=== PATIENT | male | born 1945 | race Caucasian/White ===

== ENCOUNTER → 2018-09-06 07:07 | Outpatient (CLI) | payer MEDICARE, OTHER, SELFPAY ==
[2018-09-06 07:42] LABS: Add Manual Diff / Slide Review NO; Basophils Absolute Auto 100 /uL (0-100); Basophils Percent Auto 0.9 % (0-2); Eosinophils Absolute Auto 700 /uL (0-450); Eosinophils Percent Auto 5.4 % (2-4); Hematocrit 37.9 % (41-53); Hemoglobin 12.8 g/dL (13.5-17.5); Lymphocytes Absolute Auto 1400 /uL (1100-4500); Lymphocytes Percent Auto 11.3 % (25-40); Mean Corpuscular HGB Conc 33.8 % (30-36); Mean Corpuscular Hemoglobin 31.1 PG (26-34); Mean Corpuscular Volume 92.1 fL (80-100); Monocytes Absolute Auto 1100 /uL (0-900); Monocytes Percent Auto 9.2 % (3-14); Neutrophils Absolute Auto 9100 /uL (1500-7000); Neutrophils Percent Auto 73.2 % (50-75); Platelet Count 277 X10^3/uL (150-400); Red Blood Cell Count 4.12 X10^6/uL (4.5-5.9); Red Cell Distribution Width 13.3 % (11.6-14.8); White Blood Cell Count 12.4 X10^3/uL (4.5-11.0)
[2018-09-06 07:55] LABS: BUN Creatinine Ratio 21.4 (6-22); Blood Urea Nitrogen 15 mg/dL (9-20); Calcium 8.8 mg/dL (8.4-10.2); Carbon Dioxide 30 mmol/L (22-32); Chloride 100 mmol/L (98-107); Cholesterol 104 mg/dL (140-199); Estimated Glomerular Filt Rate > 60.0 mL/min (>60); Glucose 126 mg/dL (80-110); HDL Cholesterol 31 mg/dL (40-60); HEMOLYSIS < 15 (0-50); LDL Cholesterol Calculated 64 mg/dL (<100); Potassium 4.2 mmol/L (3.4-5.1); Sodium 138 mmol/L (137-145); Triglycerides 45 mg/dL (35-150)
== END ==
PROVIDERS: Visit Provider Internal Medicine Cardiovascular Disease
DX: I25.10 Atherosclerotic heart disease of native coronary artery without angina pectoris (principal); I48.2 Chronic atrial fibrillation; Z95.5 Presence of coronary angioplasty implant and graft; E78.5 Hyperlipidemia, unspecified
CPT/HCPCS: 36415; 80048; 80061; 85025

== ENCOUNTER → 2019-09-11 08:04 | Outpatient (CLI) | payer MEDICARE, OTHER, SELFPAY ==
[2019-09-11 09:33] LABS: Add Manual Diff / Slide Review NO; Basophils Absolute Auto 100 /uL (0-100); Basophils Percent Auto 1.1 % (0-2); Eosinophils Absolute Auto 600 /uL (0-450); Eosinophils Percent Auto 6.9 % (2-4); Hematocrit 40.6 % (41-53); Hemoglobin 13.4 g/dL (13.5-17.5); Lymphocytes Absolute Auto 1700 /uL (1100-4500); Lymphocytes Percent Auto 20.4 % (25-40); Mean Corpuscular HGB Conc 33.1 % (30-36); Mean Corpuscular Hemoglobin 30.6 PG (26-34); Mean Corpuscular Volume 92.4 fL (80-100); Monocytes Absolute Auto 700 /uL (0-900); Neutrophils Absolute Auto 5200 /uL (1500-7000); Neutrophils Percent Auto 63.6 % (50-75); Platelet Count 189 X10^3/uL (150-400); Red Blood Cell Count 4.39 X10^6/uL (4.5-5.9); Red Cell Distribution Width 14.5 % (11.6-14.8); White Blood Cell Count 8.2 X10^3/uL (4.5-11.0)
[2019-09-11 10:04] LABS: BUN Creatinine Ratio 14.3 (6-22); Blood Urea Nitrogen 11 mg/dL (9-20); Calcium 9.3 mg/dL (8.4-10.2); Carbon Dioxide 27 mmol/L (22-32); Chloride 102 mmol/L (98-107); Cholesterol 115 mg/dL (140-199); Estimated Glomerular Filt Rate > 60.0 mL/min (>60); Glucose 101 mg/dL (80-110); HDL Cholesterol 50 mg/dL (40-60); HEMOLYSIS < 15 (0-50); LDL Cholesterol Calculated 52 mg/dL (<100); Potassium 4.3 mmol/L (3.4-5.1); Sodium 139 mmol/L (137-145); Triglycerides 65 mg/dL (35-150)
== END ==
PROVIDERS: Referring Provider Internal Medicine Cardiovascular Disease; Visit Provider Internal Medicine Cardiovascular Disease
DX: E78.5 Hyperlipidemia, unspecified (principal); I25.10 Atherosclerotic heart disease of native coronary artery without angina pectoris
CPT/HCPCS: 36415; 80048; 80061; 85025

== ENCOUNTER 2020-07-06 14:44 | Inpatient (IN) | payer MEDICARE, OTHER, SELFPAY ==
[2020-07-06] VITALS (8 sets, daily range): BP systolic 91–112; BP diastolic 56–75; PULSE 84–107; RESP 12–22; TEMP 36.2–37; O2SAT 97–99; BMI 18.8
--- NOTE | 2020-07-06 14:53 | ED.GENADULT ---
HPI - General Adult General Chief complaint: Altered Mental Status Stated complaint: failure to thrive Time Seen by Provider: 07/06/20 14:46 Source: patient Mode of arrival: EMS Limitations: no limitations History of Present Illness HPI narrative: Patient is a 75-year-old male. On anti coagulation for atrial fibrillation. Was brought in by EMS after they were called by the patient's brother home with he lives for evaluation of several days of confusion and weakness and inability to take care of himself. It also appears that for the past several days if not longer has had diarrhea. Here in the emergency department patient states that he was brought here ?for evaluation ?he denies any chest pain or shortness of breath or abdominal pain. He does admit that he has had some memory issues over the past couple days. Denies any falls. No sick contacts. He does think that he is taking all of his medications that he is prescribed. Related Data Home Medications Medication Instructions Recorded Confirmed [MEDICAL MARIJUANA] #0 03/14/12 ascorbic acid (vitamin C) 500 mg PO QDAY #0 04/12/16 cholecalciferol (vitamin D3) 1,000 unit PO QDAY #0 04/12/16 [Vitamin D3] multivitamin [Multiple Vitamins] 1 tab PO QDAY #0 04/12/16 [CoQ10] 10 mg #0 04/20/16 atorvastatin 40 mg PO HS #0 08/18/16 prasugrel [Effient] #0 08/18/16 [probiotic] #0 12/08/16 aspirin 81 mg PO QDAY #0 12/08/16 brimonidine [Alphagan P] 1 drp OPHTH BID #0 12/08/16 timolol maleate 1 drp OPHTH BID #0 12/08/16 Previous Rx's Medication Instructions Recorded lisinopril 2.5 mg PO QDAY #90 tab 04/20/16 metoprolol succinate 0 PO BID #270 tab 04/20/16 prasugrel [Effient] 10 mg PO QDAY #180 tab 12/08/16 betamethasone dipropionate 0.05 % 1 applictn TOPICAL BID #45 gram 12/13/18 topical ointment Allergies Allergy/AdvReac Type Severity Reaction Status Date / Time No Known Drug Allergies Allergy Verified 07/06/20 16:10 Review of Systems Constitutional Constitutional: Denies fever(s) and Denies headache(s) Eyes Eyes: Denies change in vision ENT Ears, Nose, Mouth, and Throat: Denies vertigo, Denies dizziness, Denies headache(s) and Denies sore throat Cardiovascular Cardiovascular: Denies chest pain and Denies dyspnea Respiratory Respiratory: Denies dyspnea Gastrointestinal Gastrointestinal: Denies abdominal pain, Denies nausea and Denies vomiting Genitourinary Genitourinary: Denies dysuria Genitourinary: Denies dysuria Musculoskeletal Musculoskeletal: Denies arthralgias and Denies myalgias Integumentary/Breasts Skin/Breast: Denies rash Neurologic Neurologic: Reports confusion, Denies vertigo, Denies dizziness and Denies headache(s) Psychiatric Psychiatric: Reports confusion Hematologic/Lymphatic On Anticoagulants: Yes Allergic/Immunologic Allergic/Immunologic: Denies urticaria Patient History Medical History Atrial fibrillation Social History lives independently: Yes Exam Initial Vital Signs Initial Vital Signs: Vital Signs Temperature 97.1 F L 07/06/20 15:05 Pulse Rate 95 H 07/06/20 15:05 Respiratory Rate 22 07/06/20 15:05 Blood Pressure 112/75 07/06/20 15:05 Pulse Oximetry 97 07/06/20 15:05 Const General: cooperative, healthy appearing and comfortable [facility] Head: normal to inspection and normocephalic Resp Effort & Inspection: normal respiratory effort Auscultation: clear to auscultation bilaterally Cardio Rate: regular rate Rhythm: abnormal rhythm GI Inspection: non-distended Palpation: soft Skin Lesions: no lesions Rashes: no rashes Neuro General: patient alert, patient awake and oriented (Month and person) Cranial Nerves: CN's II-XI intact bilaterally Cognition: abnormal cognition Speech: speech normal Motor: muscle tone normal throughout Sensory Exam: no sensory deficits noted Extrem General: capillary refill normal Psych Appearance: grossly normal and well kempt Scores GCS [place] coma scale eye opening: Spontaneous [place] coma scale verbal response: Confused [place] coma scale motor response: Obey commands [place] coma scale total score: 14 Course Orders Ordered: ED Orders 07/06/20 14:55 CT head/brain wo con Stat Urinalysis and Microscopic Stat 07/06/20 15:25 Acetaminophen Stat Ammonia (NH3) Stat Complete Blood Count AUTO DIFF Stat Comprehensive Metabolic Panel Stat Ethanol (ETOH) Stat Lipase Stat Partial Thromboplastin Time Stat Procalcitonin Stat Prothrombin Time INR Stat Salicylate Stat Troponin & CK Cardiac Panel Stat 07/06/20 15:35 EKG-12 Lead Stat 07/06/20 17:28 COVID19 Stat Sodium Chloride (Normal Saline 0.9%) 1,000 mls @ 125 mls/hr IV CONT ELIAZAR Last Admin: 07/06/20 16:09 Dose: 125 mls/hr Documented by: AIRAMONER Potassium Chloride 20 meq/ (Sodium Chloride) 260 mls @ 130 mls/hr IV NOW ONE Stop: 07/06/20 18:31 Last Admin: 07/06/20 18:17 Dose: 130 mls/hr Documented by: AIRAMONER Cosigned by: JAMIE Discontinued Medications Potassium Chloride (Potassium Chloride 20 Meq/15 Ml Udc) 40 meq PO NOW ONE Stop: 07/06/20 16:33 Last Admin: 07/06/20 17:02 Dose: 40 meq Documented by: AIRAMONER Vital Signs Vital signs: Vital Signs - 8 hr 07/06/20 15:05 07/06/20 16:14 07/06/20 16:30 Temperature 97.1 F L Pulse Rate 95 H 89 88 Respiratory Rate 22 16 12 Blood Pressure 112/75 92/66 Pulse Oximetry 97 98 98 Medical Decision Making Medical Records Medical records reviewed: Yes I reviewed the patient's medical records. Lab Data Lab results reviewed: Yes I reviewed the patient's lab results. Result diagrams: 07/06/20 15:25 07/06/20 15:25 Labs: Lab Results 07/06/20 07/06/20 07/06/20 Range/Units 15:25 15:25 15:25 WBC 7.3 (4.5-11.0) X10^3/uL RBC 2.98 L (4.5-5.9) X10^6/uL Hgb 8.4 L (13.5-17.5) g/dL Hct 25.7 L (41-53) % MCV 86.2 (80-100) fL MCH 28.1 (26-34) PG MCHC 32.6 (30-36) % RDW 19.3 H (11.6-14.8) % Plt Count 153 (150-400) X10^3/uL Neut % (Auto) 66.0 (50-75) % Lymph % (Auto) 24.6 L (25-40) % Sampson % (Auto) 7.9 (3-14) % Eos % (Auto) 0.7 L (2-4) % Baso % (Auto) 0.8 (0-2) % Neut # (Auto) 4800 (8120-7028) /uL Lymph # (Auto) 1800 (8083-7133) /uL Sampson # (Auto) 600 (0-900) /uL Eos # (Auto) 0 (0-450) /uL Baso # (Auto) 100 (0-100) /uL PT 22.6 H (10.1-12.7) SECONDS INR 2.0 H (0.9-1.3) APTT 29 (26.4-36.2) SECONDS Sodium 135 L (137-145) mmol/L Potassium 2.5 L* (3.4-5.1) mmol/L Chloride 96 L (98-107) mmol/L Carbon Dioxide 38 H (22-32) mmol/L BUN 14 (9-20) mg/dL Creatinine 0.62 L (0.66-1.25) mg/dL Estimated GFR > 60.0 (>60) mL/min BUN/Creatinine Ratio 22.6 H (6-22) Glucose 104 (80-110) mg/dL Calcium 7.5 L (8.4-10.2) mg/dL Total Bilirubin 0.5 (0.2-1.3) mg/dL AST 39 (17-59) IU/L ALT 8 (<50) IU/L Alkaline Phosphatase 1507 H (38-126) U/L Ammonia (9-30) umol/L Total Creatine Kinase (55-170) U/L CK-MB (CK-2) CK-MB (CK-2) Rel Index Troponin I (0.01-0.034) ng/mL Total Protein 6.0 L (6.3-8.2) g/dL Albumin 3.0 L (3.5-5.0) g/dL Globulin 3.0 (1.7-4.1) g/dL Albumin/Globulin Ratio 1.0 (1.0-2.8) Lipase (23-300) U/L Procalcitonin (<0.5) ng/mL Salicylates (<20) mg/dL Acetaminophen (10-30) ug/mL Ethyl Alcohol < 10 ( - 10) mg/dL 07/06/20 07/06/20 07/06/20 Range/Units 15:25 15:25 15:25 WBC (4.5-11.0) X10^3/uL RBC (4.5-5.9) X10^6/uL Hgb (13.5-17.5) g/dL Hct (41-53) % MCV (80-100) fL MCH (26-34) PG MCHC (30-36) % RDW (11.6-14.8) % Plt Count (150-400) X10^3/uL Neut % (Auto) (50-75) % Lymph % (Auto) (25-40) % Sampson % (Auto) (3-14) % Eos % (Auto) (2-4) % Baso % (Auto) (0-2) % Neut # (Auto) (1016-7839) /uL Lymph # (Auto) (8374-1231) /uL Sampson # (Auto) (0-900) /uL Eos # (Auto) (0-450) /uL Baso # (Auto) (0-100) /uL PT (10.1-12.7) SECONDS INR (0.9-1.3) APTT (26.4-36.2) SECONDS Sodium (137-145) mmol/L Potassium (3.4-5.1) mmol/L Chloride (98-107) mmol/L Carbon Dioxide (22-32) mmol/L BUN (9-20) mg/dL Creatinine (0.66-1.25) mg/dL Estimated GFR (>60) mL/min BUN/Creatinine Ratio (6-22) Glucose (80-110) mg/dL Calcium (8.4-10.2) mg/dL Total Bilirubin (0.2-1.3) mg/dL AST (17-59) IU/L ALT (<50) IU/L Alkaline Phosphatase (38-126) U/L Ammonia < 9 L (9-30) umol/L Total Creatine Kinase 72 (55-170) U/L CK-MB (CK-2) TNP CK-MB (CK-2) Rel Index TNP Troponin I < 0.012 (0.01-0.034) ng/mL Total Protein (6.3-8.2) g/dL Albumin (3.5-5.0) g/dL Globulin (1.7-4.1) g/dL Albumin/Globulin Ratio (1.0-2.8) Lipase 130 (23-300) U/L Procalcitonin 0.08 (<0.5) ng/mL Salicylates (<20) mg/dL Acetaminophen (10-30) ug/mL Ethyl Alcohol ( - 10) mg/dL 07/06/20 07/06/20 Range/Units 15:25 15:25 WBC (4.5-11.0) X10^3/uL RBC (4.5-5.9) X10^6/uL Hgb (13.5-17.5) g/dL Hct (41-53) % MCV (80-100) fL MCH (26-34) PG MCHC (30-36) % RDW (11.6-14.8) % Plt Count (150-400) X10^3/uL Neut % (Auto) (50-75) % Lymph % (Auto) (25-40) % Sampson % (Auto) (3-14) % Eos % (Auto) (2-4) % Baso % (Auto) (0-2) % Neut # (Auto) (8789-0690) /uL Lymph # (Auto) (9529-3344) /uL Sampson # (Auto) (0-900) /uL Eos # (Auto) (0-450) /uL Baso # (Auto) (0-100) /uL PT (10.1-12.7) SECONDS INR (0.9-1.3) APTT (26.4-36.2) SECONDS Sodium (137-145) mmol/L Potassium (3.4-5.1) mmol/L Chloride (98-107) mmol/L Carbon Dioxide (22-32) mmol/L BUN (9-20) mg/dL Creatinine (0.66-1.25) mg/dL Estimated GFR (>60) mL/min BUN/Creatinine Ratio (6-22) Glucose (80-110) mg/dL Calcium (8.4-10.2) mg/dL Total Bilirubin (0.2-1.3) mg/dL AST (17-59) IU/L ALT (<50) IU/L Alkaline Phosphatase (38-126) U/L Ammonia (9-30) umol/L Total Creatine Kinase (55-170) U/L CK-MB (CK-2) CK-MB (CK-2) Rel Index Troponin I (0.01-0.034) ng/mL Total Protein (6.3-8.2) g/dL Albumin (3.5-5.0) g/dL Globulin (1.7-4.1) g/dL Albumin/Globulin Ratio (1.0-2.8) Lipase (23-300) U/L Procalcitonin (<0.5) ng/mL Salicylates < 1.0 (<20) mg/dL Acetaminophen < 10 L (10-30) ug/mL Ethyl Alcohol ( - 10) mg/dL Imaging Data CT scan - head: Radiologist's Impression: [address] Scan ReportSigned Patient: Dandre Choi LMR#: [id number]: 1945cct:[id number]/Sex: 75 / MDate of Service: 07/06/20Loc: EDAccession Number: [id number] Procedure: CT head/brain wo con Ordering Provider: hTomas Oliver D.O. PROCEDURE: CT HEAD/BRAIN WO CON INDICATIONS: AMS TECHNIQUE: Noncontrast 4.5 mm thick angled axial sections acquired from the foramen magnum to the vertex, with coronal and sagittal reformats. For radiation dose reduction, the following was used: automated exposure control, adjustment of mA and/or kV according to patient size. COMPARISON: None. FINDINGS: Image quality: Excellent. CSF spaces: Basal cisterns are patent. No extra-axial fluid collections. The ventricles are symmetric in size and shape. Brain: There is hypodensity in the left parietal white matter, suspicious for subacute infarct. There is an old infarct in the left occipital lobe with encephalomalacia. There is an old lacunar infarct in the left basal ganglia. No intracranial bleeds or masses. There is mild cerebral volume loss for age, with resultant ventricular and sulcal prominence. There are moderate periventricular and deep white matter chronic small vessel ischemic changes. There is intracranial internal carotid artery atherosclerosis. Skull and face: Calvarium and visualized facial bones appear intact, without suspicious lesions. Sinuses: Visualized sinuses and mastoids are clear. IMPRESSION: 1. Hypodensity in the left parietal white matter suspicious for subacute infarct. 2. 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 3. Cerebral volume loss and chronic microvascular ischemic changes. The result was discussed with Dr. Oliver in ER. Dictated by: Anita Gonzáles M.D. on 07/06/2020 at 15:09 Approved by: Anita Gonzáles M.D. on 07/06/2020 at 15:16 ECG Data Attestation: I personally reviewed and interpreted this ECG as follows: Prior ECG tracings: not available for review Interpretation: Atrial fibrillation Ventricular rate [address] T wave changes MDM Narrative Medical decision making narrative: Patient does have a nonfocal neurologic exam. Moves all 4 extremities. Is confused about certain things like where exactly he is and what year it is. He does know his name. When you ask him if he takes a certain medication he states is yes but he is unable to provide that information on his own. He does admit that he has been more confused recently. He denies any falls. Patient is somewhat anemic on his labs. He is a [employer] and states he does not want any blood transfusion. He is also hypokalemic. CT scan is concerning for potential subacute CVA. He is at risk for this secondary to his anticoagulation in atrial fibrillation. His brother who lives with him eventually arrived and stated that he also has had diarrhea for the past couple days. Patient was typed and screened. Potassium replacement started. Discussed the case with Dr. Rao with Internal Medicine who will admit for further evaluation treatment. Discussed this with the patient and his brother who both expressed understanding and agreement. Discharge Plan Departure Patient Disposition: Admitted as Observation Clinical Impression: Altered mental status, Hypokalemia, Anemia, CVA (cerebral vascular accident), Atrial fibrillation Admit Date/Time: 07/06/20 16:50 Admit Provider: Rajinder Rao
[2020-07-06 15:37] LABS: Add Manual Diff / Slide Review NO; Basophils Absolute Auto 100 /uL (0-100); Basophils Percent Auto 0.8 % (0-2); Eosinophils Absolute Auto 0 /uL (0-450); Eosinophils Percent Auto 0.7 % (2-4); Hematocrit 25.7 % (41-53); Hemoglobin 8.4 g/dL (13.5-17.5); Lymphocytes Absolute Auto 1800 /uL (1100-4500); Lymphocytes Percent Auto 24.6 % (25-40); Mean Corpuscular HGB Conc 32.6 % (30-36); Mean Corpuscular Hemoglobin 28.1 PG (26-34); Mean Corpuscular Volume 86.2 fL (80-100); Monocytes Absolute Auto 600 /uL (0-900); Monocytes Percent Auto 7.9 % (3-14); Neutrophils Absolute Auto 4800 /uL (1500-7000); Platelet Count 153 X10^3/uL (150-400); Red Blood Cell Count 2.98 X10^6/uL (4.5-5.9); Red Cell Distribution Width 19.3 % (11.6-14.8); White Blood Cell Count 7.3 X10^3/uL (4.5-11.0)
[2020-07-06 15:44] LABS: Prothrombin Time 22.6 SECONDS (10.1-12.7)
[2020-07-06 15:47] LABS: PTT Partial Thromboplastin Tim 29 SECONDS (26.4-36.2)
[2020-07-06 15:52] LABS: Ammonia (NH3) < 9 umol/L (9-30)
[2020-07-06 15:53] LABS: Alanine Aminotransferase 8 IU/L (<50); Aspartate Aminotransferase 39 IU/L (17-59); BUN Creatinine Ratio 22.6 (6-22); Bilirubin Total 0.5 mg/dL (0.2-1.3); Blood Urea Nitrogen 14 mg/dL (9-20); Calcium 7.5 mg/dL (8.4-10.2); Carbon Dioxide 38 mmol/L (22-32); Chloride 96 mmol/L (98-107); Estimated Glomerular Filt Rate > 60.0 mL/min (>60); Ethanol (ETOH) < 10 mg/dL; Glucose 104 mg/dL (80-110); Sodium 135 mmol/L (137-145)
[2020-07-06 15:57] LABS: Creatine Kinase 72 U/L (55-170); Lipase 130 U/L (23-300)
[2020-07-06 15:59] LABS: HEMOLYSIS 15 (0-50)
[2020-07-06] MEDS: SODIUM CHLORIDE 0.9% 1,000 ML 125 ML IV (16:09)
[2020-07-06 16:12] LABS: Troponin I < 0.012 ng/mL (0.01-0.034)
[2020-07-06 16:14] LABS: Acetaminophen < 10 ug/mL (10-30)
[2020-07-06 16:15] LABS: Salicylate < 1.0 mg/dL (<20)
[2020-07-06 16:21] LABS: Procalcitonin 0.08 ng/mL (<0.5)
[2020-07-06 16:29] LABS: Potassium 2.5 mmol/L (3.4-5.1)
[2020-07-06 16:30] LABS: Alkaline Phosphatase 1507 U/L (38-126)
[2020-07-06] MEDS: POTASSIUM CHLORIDE 20 MEQ/15 ML UDC 40 MEQ PO (17:02)
--- NOTE | 2020-07-06 17:02 | DI.MRI.S_ITS ---
PROCEDURE: MR STROKE Pre- and post-contrast brain MRI, non-contrast brain MR angiogram, pre- and postcontrast neck MR angiogram INDICATIONS: ? subacute infarct on CT, altered mental status / confusion TECHNIQUE: Brain: Noncontrast axial T1 spin echo, axial T2 fast spin echo, sagittal and axial FLAIR, coronal T2 fast spin echo, axial gradient echo, axial diffusion and ADC through the brain. After the administration of contrast, axial 3D VIBE of the cranial vasculature and brain. Brain MRA: Non-contrast 3-D time of flight MR angiogram, with multiple ifgzmdz-hyodsmybj-shwzebokpc (MIP) reformats performed. Neck MRA: Axial and sagittal TruFISP through the neck. Coronal dynamic MR angiogram during administration of contrast in the arterial and venous phases, with 3-dimenstional uxkisid-bvbxritxt-drryqymmjm (MIP) reformats constructed from subtraction images. COMPARISON: [facility], CT, CT HEAD/BRAIN WO CON, 07/06/2020, 14:55. FINDINGS: Image quality: Excellent. BRAIN: CSF spaces: Ventricles are normal in size and shape. Basal cisterns are patent. No extra-axial fluid collections. Brain: There is a remote, complete infarction seen involving the left occipital lobe, with volume loss and encephalomalacia. Focal mild encephalomalacia can be seen involving the left parietal region, at the site of the CT abnormality. No abnormal enhancement can be seen within this region. No findings of acute infarction can be seen at this site or elsewhere on diffusion-weighted images. No intracranial bleeds or mass effects. Orr-white matter interface is normal. Brain parenchymal volume loss is seen. Chronic small vessel ischemic changes are seen. Brainstem appears normal. Normal intravascular flow voids are present. No abnormal intracranial enhancement. Skull and face: Calvarial marrow signal is normal. Orbits appear normal. Sinuses: Sinuses and mastoids are clear. BRAIN MR ANGIOGRAM: Anterior circulation: Intracranial internal carotid arteries are normal in size and enhancement. The flow within the paired anterior cerebral arteries is normal and symmetric. The flow within the middle cerebral arteries is normal and symmetric. The anterior communicating artery is seen. No stenoses, occlusions, or aneurysms. Posterior circulation: The visualized portions of the vertebral arteries demonstrate normal caliber, and join to form a normal appearing basilar artery. The flow within the posterior cerebral arteries is normal and symmetric. No stenoses, occlusions, or aneurysms. NECK MR ANGIOGRAM: Carotids: Great vessels demonstrate a conventional anatomy as they arise from the aortic arch. The origins of the common carotid arteries appear patent. The calibers and courses of both common carotid arteries are normal. The bifurcation regions appear normal bilaterally. The internal carotid arteries demonstrate normal course and caliber. Posterior circulation: The origins of the vertebral arteries appear patent. More superior portions of both vertebral arteries demonstrate normal course and caliber, and join to form a normal appearing basilar artery. Miscellaneous: Subclavian arteries appear patent. Pre-contrast images through the neck show no soft tissue abnormalities. Bilateral pleural effusions are seen, right larger than left. IMPRESSION: BRAIN MRI: No findings of acute or subacute infarction can be seen. At the site of the head CT abnormality within the left parietal region, there is increased T2 weighted signal, without enhancement. This may be related to a remote infarct. Differential diagnosis includes a nonenhancing neoplasm, yet this is considered to be less likely. If clinically appropriate, please consider a follow-up contrast-enhanced brain MRI in 6-8 weeks. 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 Note is made of age-appropriate brain parenchymal volume loss and chronic small vessel ischemic changes. BRAIN MR ANGIOGRAM: No significant intracranial arterial abnormality is seen. NECK MR ANGIOGRAM: Within the arteries of the neck, no hemodynamically significant stenosis can be seen. Bilateral pleural effusions are noted, right larger than left. Dictated by: Marcos Collins M.D. on 07/06/2020 at 17:03 Approved by: Marcos Collins M.D. on 07/06/2020 at 17:08
--- NOTE | 2020-07-06 17:30 | PC.NURSE ---
pt brother reports him being weak, having to help him get up sometimes. pt states he notices he is forgetful. he remembered the yr, his age, this town and hospital, but then pt realized he couldn't remember the month. pt has also repeated the same info about might as well use his insurance, it good.
--- NOTE | 2020-07-06 18:08 | DI.RAD.S_ITS ---
PROCEDURE: XR CHEST 1V INDICATIONS: weakness, hx cardiomyopathy TECHNIQUE: One view of the chest was acquired. COMPARISON: None. FINDINGS: Surgical changes and devices: None. Lungs and pleura: Mildly increased interstitial markings in both lungs. No airspace opacity identified. No pleural effusions or pneumothorax. Mediastinum: Mediastinal contours appear normal. Heart size is normal. Bones and chest wall: No suspicious bony lesions. Overlying soft tissues appear unremarkable. IMPRESSION: Patchy interstitial opacities throughout both lungs, presumably a function of cardiogenic pulmonary edema given the history of cardiomyopathy. Dictated by: Aristeo Valles M.D. on 07/06/2020 at 18:05 Approved by: Aristeo Valles M.D. on 07/06/2020 at 18:09
--- NOTE | 2020-07-06 18:14 | PM.HP.1 ---
History of Present Illness History of Present Illness Date Patient Seen: 07/06/20 Time Patient Seen: 18:14 Chief complaint: failure to thrive Narrative: Dandre Choi is a 75 year old male with PMH of Alcoholism, ischemic cardiomyopathy (s/p JAMES to mLAD 07/2016 EF as low at 10-15% improved to normal in 2018), persistent atrial fibrillation, memory impairment who was BIBEMS for 3 weeks of continued weakness, lethargy, poor appetite, and diarrhea. Patient denies complaints during my interview, but when pressed with family at bedside (brother) he does admit he is a bit weaker than usual. Denies numbness, tingling, abdominal pain, fever, chills. Does endorse dairrhea and frequent depends changes. his brother at bedside endorses that over the past 2-3 weeks the patient has been unable to get out of bed, and needs significant assistance to move his legs. he had been trying to get the patient to come in for an evaluation, but finally today the patient stated that he might need to get evaluated for continued weakness after his function declined even more. His brother has not noticed any decrease in sensation or unilateral weakness, but a rapid decline in function over the past few weeks and worsened more over the past few days. Denied dark or melenotic or bright red stools. Brother endorses poor appetite and patient won't eat even a single egg at breakfast along with weight loss though he cannot quantify this. He does state that the patient is relentless, however, about taking his heart medications. Patient denies shortness of breath, chest pain, orthopnea, LE edema. In the ER, patient was mildly hypotensive, but the remainder of his vital signs were unremarkable. He was started on IV fluids. Initial laboratory evaluation revealed a CBC with a normal white count, hemoglobin of 8.4, down from 13 about a year ago, with normal platelets. Patient takes Xarelto and INR is 2.0. Chemistries revealed a potassium of 2.5, CO2 of 38, creatinine of 0.62. Patient was given 60 mEq of oral and IV potassium in the ER. Patient also has a markedly elevated alkaline phosphatase at 1507, calcium is normal, remainder of his hepatic studies are unremarkable. Ammonia was negative. CK was within normal limits. Troponin was negative. Albumin was 3.0. Procalcitonin 0.08. Salicylate, Tylenol, and alcohol levels were negative. COVID-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 MR stroke protocol is ordered. CXR is also ordered. EKG shows atrial fibrillation with a rate of 85, mild T wave inversions in V3-4 (flattened) with minimal ST deperession, although previous tracings show this as well. Patient History Medical History (Updated 07/06/20 @ 18:34 by Rajinder Rao DO) Alcoholism Atrial fibrillation CAD (coronary artery disease) Ischemic cardiomyopathy Persistent atrial fibrillation Prostate cancer Surgical History (Updated 07/06/20 @ 18:34 by Rajinder Rao DO) History of prostatectomy Family & Social History Family History (Updated 07/06/20 @ 18:33 by Rajinder Rao DO) Father CAD (coronary artery disease) Social History: stopped EtOH 2015. Former smoker (stopped 50+ years ago). Meds Home Medications and Allergies Home Medications Medication Instructions Recorded Confirmed Type [MEDICAL MARIJUANA] 10 mcg PO PRN #0 03/14/12 History lisinopril 2.5 mg PO QDAY #90 tab 04/20/16 07/06/20 Rx atorvastatin 40 mg PO HS #0 08/18/16 07/06/20 History timolol maleate 1 drp OPHTH BID #0 12/08/16 07/06/20 History latanoprost 1 drp OPHTHALMIC (EYE) DAILY 07/06/20 07/06/20 History metoprolol succinate 100 mg PO BID 07/06/20 07/06/20 History rivaroxaban [Xarelto] 20 mg DAILY 07/06/20 07/06/20 History Allergies Allergy/AdvReac Type Severity Reaction Status Date / Time No Known Drug Allergies Allergy Verified 07/06/20 16:10 Review of Systems Review of Systems Narrative: All other systems reviewed with the patient and are negative unless otherwise stated. Exam Vital Signs (past 8 hours): - 07/06/20 15:05 07/06/20 16:14 07/06/20 16:30 Temperature 97.1 F L Pulse Rate 95 H 89 88 Respiratory Rate 22 16 12 Blood Pressure 112/75 92/66 Pulse Oximetry 97 98 98 07/06/20 17:00 Temperature Pulse Rate 84 Respiratory Rate 16 Blood Pressure 105/71 Pulse Oximetry 99 Oxygen Delivery Method Room Air Narrative Exam Narrative: GENERAL APPEARANCE: Chronically ill appearing, malnourished appearing elderly male, in no acute distress. SKIN: Inspection of the skin reveals no rashes, ulcerations or petechiae. HEENT: Normocephalic atraumatic, extraocular muscles are intact, oropharynx is clear and mucous membranes are moist, neck is supple without adenopathy NECK: Supple and symmetric. There was no thyroid enlargement, and no tenderness, or masses were felt. CHEST: Normal AP diameter and normal contour without any kyphoscoliosis. LUNGS: Auscultation of the lungs revealed diminished breath sounds bilaterally without wheezes, rhonchi, rales. CARDIOVASCULAR: Irregularly irregular rhythm with normal rate without any murmurs, gallops, rubs. Peripheral pulses were 2+ and symmetric. ABDOMEN: Soft and nontender with normal bowel sounds. No ascites was noted. MUSCULOSKELETAL: There was no tenderness or effusions noted. Muscle strength in upper extremities was unremarkable, lower extremities asymmetric with +5/5 on the left and +4 on the right, Stroke Scale as noted below and his right lower extremity weakness is the only obvious deficit. EXTREMITIES: No cyanosis, clubbing or edema. NEUROLOGIC: Alert and oriented x 3. Normal affect. Gait was not assessed. Probable mild cognitive impairment. Strength is +5/5 in the Upper Extremities and Lower Extremities Bilaterally. Sensation to touch was normal. Finger to nose equal bilaterally. Objective ECG Impression: atrial fibrillation with a rate of 85, mild T wave inversions in V3-4 (flattened) with minimal ST deperession, although previous tracings show this as well. Imaging CT scan - head: Radiologist's impression: FINDINGS: Image quality: Excellent. CSF spaces: Basal cisterns are patent. No extra-axial fluid collections. The ventricles are symmetric in size and shape. Brain: There is hypodensity in the left parietal white matter, suspicious for subacute infarct. There is an old infarct in the left occipital lobe with encephalomalacia. There is an old lacunar infarct in the left basal ganglia. No intracranial bleeds or masses. There is mild cerebral volume loss for age, with resultant ventricular and sulcal prominence. There are moderate periventricular and deep white matter chronic small vessel ischemic changes. There is intracranial internal carotid artery atherosclerosis. Skull and face: Calvarium and visualized facial bones appear intact, without suspicious lesions. Sinuses: Visualized sinuses and mastoids are clear. IMPRESSION: 1. Hypodensity in the left parietal white matter suspicious for subacute infarct. 2. 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 3. Cerebral volume loss and chronic microvascular ischemic changes. Labs Result Diagrams: 07/06/20 15:25 07/06/20 15:25 Labs: Laboratory Results - last 24 hr 07/06/20 07/06/20 07/06/20 15:25 15:25 15:25 WBC 7.3 RBC 2.98 L Hgb 8.4 L Hct 25.7 L MCV 86.2 MCH 28.1 MCHC 32.6 RDW 19.3 H Plt Count 153 Neut % (Auto) 66.0 Lymph % (Auto) 24.6 L [place] % (Auto) 7.9 Eos % (Auto) 0.7 L Baso % (Auto) 0.8 Neut # (Auto) 4800 Lymph # (Auto) 1800 [place] # (Auto) 600 Eos # (Auto) 0 Baso # (Auto) 100 PT 22.6 H INR 2.0 H APTT 29 Sodium 135 L Potassium 2.5 L* Chloride 96 L Carbon Dioxide 38 H BUN 14 Creatinine 0.62 L Estimated GFR > 60.0 BUN/Creatinine Ratio 22.6 H Glucose 104 Calcium 7.5 L Total Bilirubin 0.5 AST 39 ALT 8 Alkaline Phosphatase 1507 H Ammonia Total Creatine Kinase CK-MB (CK-2) CK-MB (CK-2) Rel Index Troponin I Total Protein 6.0 L Albumin 3.0 L Globulin 3.0 Albumin/Globulin Ratio 1.0 Lipase Procalcitonin Salicylates Acetaminophen Ethyl Alcohol < 10 07/06/20 07/06/20 07/06/20 15:25 15:25 15:25 WBC RBC Hgb Hct MCV MCH MCHC RDW Plt Count Neut % (Auto) Lymph % (Auto) [place] % (Auto) Eos % (Auto) Baso % (Auto) Neut # (Auto) Lymph # (Auto) [place] # (Auto) Eos # (Auto) Baso # (Auto) PT INR APTT Sodium Potassium Chloride Carbon Dioxide BUN Creatinine Estimated GFR BUN/Creatinine Ratio Glucose Calcium Total Bilirubin AST ALT Alkaline Phosphatase Ammonia < 9 L Total Creatine Kinase 72 CK-MB (CK-2) TNP CK-MB (CK-2) Rel Index TNP Troponin I < 0.012 Total Protein Albumin Globulin Albumin/Globulin Ratio Lipase 130 Procalcitonin 0.08 Salicylates Acetaminophen Ethyl Alcohol 07/06/20 07/06/20 15:25 15:25 WBC RBC Hgb Hct MCV MCH MCHC RDW Plt Count Neut % (Auto) Lymph % (Auto) [place] % (Auto) Eos % (Auto) Baso % (Auto) Neut # (Auto) Lymph # (Auto) [place] # (Auto) Eos # (Auto) Baso # (Auto) PT INR APTT Sodium Potassium Chloride Carbon Dioxide BUN Creatinine Estimated GFR BUN/Creatinine Ratio Glucose Calcium Total Bilirubin AST ALT Alkaline Phosphatase Ammonia Total Creatine Kinase CK-MB (CK-2) CK-MB (CK-2) Rel Index Troponin I Total Protein Albumin Globulin Albumin/Globulin Ratio Lipase Procalcitonin Salicylates < 1.0 Acetaminophen < 10 L Ethyl Alcohol Assessment & Plan Assessment & Plan narrative: Dandre Choi is a 75 year old male with PMH of Alcoholism, ischemic cardiomyopathy (s/p JAMES to mLAD 07/2016 EF as low at 10-15% improved to normal in 2018), persistent atrial fibrillation, memory impairment who was BIBEMS for 3 weeks of continued weakness, lethargy, poor appetite, and diarrhea admitted with probable subacute CVA. 1. Subacute CVA, present on admission - CT on admission showing probable subacute L CVA, with prior infarcts noted as well. Likely embolic given his history of atrial fibrillation. Unclear exact timing of infact given presentation. - MR stroke pending, will obtain CXR and TTE. - PT/OT evaluations, with cognitive testing. - bedside swallow eval, possible speech. - Admission NIHSS 2 given RLE weakness 2. protein calorie Malnutrition, presumed acute, possibly on chronic, present on admission - patient with recent weight loss, poor appetite in setting, diarrhea - nutrition consultation - suspect multifactorial in setting of recent subacute infarcts, chronic medical issues, anemia, and decreased appetite. - check for infectious etiology of reported diarrhea with GI panel. 3. Acute anemia, normocytic, present on admission - unclear etiology and unknown chronicity other than Hg was normal about 1 year ago. Suspect a chronic anemic of inflammation at this time. - Hg 8.7 on admission. Will continue to follow. Check iron panel, b12, folate. - transfusion if Hg <7. - monitor for evidence of bleeding. 4. persistent atrial fibrillation - continue home metoprolol. Will repeat TTE as noted above. Continue xarelto for now. 5. History of ischemic cardiomyopathy - prior EF of 10-15% secondary to EtOH and ischemia (stent to mLAD in 07/2016) which improved to normal on TTE 2018 per cardiac records. - will repeat TTE. Reportedly has not seen a physician in over a year. - continue xarelto for now as no signs or symptoms of bleeding. - continue home beta mylene at half home dosing (50 mg BID), will hold lisinopril at this time given borderline hypotension. 6. history of alcoholism in remission. - no reported drinking since 2016 per patient and family. 7. hypokalemia, acute, present on admission - presumed secondary to GI losses given diarrhea. Repleted with 60 mEQ in the ER. repeat labs tomorrow AM. Check mg level as well. Code: Full Dispo: Admitted under observation at status pending above evaluation at this time. Anticipate he may need senior care upon discharge. Pending PT/OT evaluations. DVT: continue home xarelto. PCP: reportedly has not seen anyone recently. Saw Dr. Henson in the past, along with Dr. Sam but states he had not seen anyone regularly since Dr. Sam left many years ago. Does follow with Dr. Gil annually. Scores NIHSS Level of Conciousness: Alert, keenly responsive Ask month/age: Answers both questions correctly. Open/close eyes, close hand: Performs both tasks correctly Best gaze horizontal: Normal Visual acosta: No visual loss Facial palsy: Normal symetrical movement Left arm drift: No drift for full 10 sec Right arm drift: No drift for full 10 sec Left leg drift: No drift for full 5 sec Right leg drift: Some effort against gravity, cannot maintain, drifts down to bed Limb ataxia: Absent Sensory on face/arms/legs: Normal, no sensory loss Best language: No aphasia, normal Dysarthria: Normal Extinction or inattention: No abnormality Total NIH Stroke scale score: 2
[2020-07-06] MEDS: POTASSIUM CHLORIDE 20 MEQ in SODIUM CHLORIDE 0.9% 250 ML 130 ML IV (18:17)
[2020-07-06 18:20] LABS: COVID19 -Nasal RAPID Negative (Negative)
--- NOTE | 2020-07-06 18:39 | DI.ECHO.S_ITS ---
[place] +---------+ [facility] +---------+ : : [address] : : : : [id number] : : : : Phone: [phone]+ Echocardiogram Report + + :Name: PHILIP ALBERT Study Date: 07/07/2020 Height: 66 in : :[facility] ReadingLocation: Weight: 130 lb: : Gender: Male BSA: 1.7 m2 : :: 1945 Age: 75 yrs BP: 91/59 mmHg: :Reason For Study: CVA : :Ordering Physician: ADITYA, : :WILFREDO DONG Performed By: Meghan Mera : :Referring: WILFREDO BURGESS : + + Interpretation Summary The patient was in atrial fibrillation with heart rates between 81-125 bpm during the exam. The left ventricle is normal in size and wall thickness. The ejection fraction is estimated to be 55-60%. The right ventricle is normal in size and function. Both atria are severely dilated. There is mild mitral regurgitation. There is mild to moderate tricuspid regurgitation. The right ventricular systolic pressure is estimated to be at least 33 mmHg based on an estimated right atrial pressure of 8 mm Hg. Procedure: A two-dimensional transthoracic echocardiogram with color flow and Doppler was performed. The study quality was technically adequate. Comparison is made with the echocardiogram of 11/16/2016. The patient was in atrial fibrillation with heart rates between 81-125 bpm during the exam. Left Ventricle: The left ventricle is normal in size and wall thickness. There is no thrombus. The ejection fraction is estimated to be 55-60%. There are no focal wall motion abnormalities. Diastolic function could not be accurately assessed due to atrial fibrillation. E/E' med: 10.2. Right Ventricle: The right ventricle is normal in size and function. Atria: The left atrium is severely dilated. Both atria are severely dilated. The right atrium is severely dilated. There is no Doppler evidence for an interatrial shunt. Mitral Valve: The mitral valve leaflets are slightly calcified. There is mild to moderate mitral annular calcification. No significant mitral valve stenosis. There is mild mitral regurgitation. Aortic Valve: The aortic valve is trileaflet. The aortic valve opens well. The aortic valve is slightly calcified. There is no aortic valve stenosis. No aortic regurgitation is present. Tricuspid Valve: The tricuspid valve is normal. There is mild to moderate tricuspid regurgitation. The right ventricular systolic pressure is estimated to be at least 33 mmHg based on an estimated right atrial pressure of 8 mm Hg. Pulmonic Valve: The pulmonic valve leaflets are thin and pliable; valve motion is normal. There is mild pulmonic regurgitation. Great Vessels: The aortic root is normal size. The dimensions of the ascending aorta are normal. The IVC is of normal diameter and collapses less than 50% with a sniff. This suggests a right atrial pressure of 8 mm Hg. Pericardium/ Pleura There is no pericardial effusion. There is no pleural effusion. MMode/2D Measurements & Calculations LVIDd: 4.2 cm LVOT diam: 2.1 cm LVIDs: 2.9 cm Ao root diam: 3.3 cm FS: 30.8 % asc Aorta Diam: 3.3 cm EPSS: 0.78 cm Ao Arch Diam (Prox Trans): 2.8 cm IVSd: 0.82 cm LVPWd: 0.98 cm LV singh. diameter/BSA (cm/m^2): 2.5 LV sys. diameter/BSA (cm/m^2): 1.7 LA A2 area: 30.3 cm2 RA long axis: 6.4 cm LA A4 area: 27.7 cm2 RA area: 24.4 cm2 LA length (vol): 6.6 cm RA vol: 79.2 ml LA vol: 107.7 ml RA : 47.5 ml/m2 LA vol index: 64.6 ml/m2 IVC diam: 2.1 cm RVD1 (basal): 3.4 cm TAPSE: 1.9 cm Doppler Measurements & Calculations Ao V2 max: 132.5 cm/sec LVOT Max Kirk: 77.5 cm/sec Ao V2 mean: 99.1 cm/sec LV V1 max P.4 mmHg Ao max P.0 mmHg LV V1 VTI: 14.3 cm Ao mean P.3 mmHg GELA(I,D): 2.4 cm2 Ao V2 VTI: 21.0 cm GELA(V,D): 2.1 cm2 sev ratio: 0.68 GELA indexed to BSA (cm^2/m^2): 1.4 MV E max kirk: 113.8 cm/sec TR max kirk: 250.6 cm/sec MV A max kirk: 2.0 cm/sec TR max P.3 mmHg MV E/A: 55.8 PA V2 max: 54.3 cm/sec Med Peak E' Kirk: 11.1 cm/sec PA V2 mean: 36.1 cm/sec E/E' med: 10.2 PA mean P.60 mmHg Lat Peak E' Kirk: 10.7 cm/sec PA pr(Accel): 43.0 mmHg E/E' lat: 10.7 E/e' average: 10.5 MV dec time: 0.14 sec SV(LVOT): 50.6 ml Reading Physician:11:49 AM
[2020-07-06 21:33] LABS: RBC Urine None Seen (0-5/HPF)
[2020-07-06 21:35] LABS: Appearance Urine UA SL CLOUDY; Bilirubin Urine UA NEGATIVE (NEGATIVE); Color Urine UA YELLOW; Glucose Urine UA NEGATIVE (Negative); Ketones Urine UA NEGATIVE (NEGATIVE); Leukocyte Esterase Urine UA NEGATIVE (NEGATIVE); Nitrite Urine UA NEGATIVE (Negative); Occult Blood Urine UA 1+ (Negative); Protein Urine UA 2+ (Negative); Specific Gravity Urine UA 1.015 (1.000-1.035)
[2020-07-06 21:45] LABS: Squamous Epithelial Cell Urine 0-1 /HPF (0-5/HPF); WBC Urine 5-10/HPF (0-5/HPF)
[2020-07-06 21:46] LABS: Bacteria Urine Many (>30); Culture Indicated Urine Specimen Cultured; Granular Casts Urine 5-10/LPF
[2020-07-06] MEDS: ATORVASTATIN 20 MG TABLET 40 MG PO (22:18)
[2020-07-06] MEDS: TIMOLOL 0.5% OPHTH 1 DROPS EYE-BOTH (22:21)
--- NOTE | 2020-07-06 23:08 | PC.NURSE ---
Report received from ED, care assumed 1813. Pt. alert. Unclear as to reason for hospitalization; otherwise answers questions of orientation slowly but appropriately. VSS. Tele, AFib (baseline). Urinary urgency, slightly incontinent. Wearing brief.
[2020-07-07] VITALS (9 sets, daily range): BP systolic 85–98; BP diastolic 50–68; PULSE 87–140; RESP 16–18; TEMP 36.2–37.3; O2SAT 94–100; BMI 18.8
[2020-07-07 05:08] LABS: INR 1.8 (0.9-1.3)
[2020-07-07 05:13] LABS: Add Manual Diff / Slide Review NO; Basophils Absolute Auto 0 /uL (0-100); Basophils Percent Auto 0.6 % (0-2); Eosinophils Absolute Auto 100 /uL (0-450); Eosinophils Percent Auto 1.1 % (2-4); Hemoglobin 7.8 g/dL (13.5-17.5); Lymphocytes Absolute Auto 1700 /uL (1100-4500); Lymphocytes Percent Auto 26.6 % (25-40); Mean Corpuscular HGB Conc 32.6 % (30-36); Monocytes Absolute Auto 500 /uL (0-900); Monocytes Percent Auto 8.4 % (3-14); Neutrophils Absolute Auto 4000 /uL (1500-7000); Neutrophils Percent Auto 63.3 % (50-75); Platelet Count 132 X10^3/uL (150-400); Red Blood Cell Count 2.79 X10^6/uL (4.5-5.9); Red Cell Distribution Width 19.8 % (11.6-14.8); White Blood Cell Count 6.3 X10^3/uL (4.5-11.0)
[2020-07-07 05:21] LABS: Alanine Aminotransferase 7 IU/L (<50); Albumin 2.7 g/dL (3.5-5.0); Albumin Globulin Ratio 0.9 (1.0-2.8); Alkaline Phosphatase 1441 U/L (38-126); Aspartate Aminotransferase 33 IU/L (17-59); BUN Creatinine Ratio 21.1 (6-22); Bilirubin Total 0.5 mg/dL (0.2-1.3); Bilirubin Unconjugated 0.6 mg/dL (0.0-1.1); Blood Urea Nitrogen 12 mg/dL (9-20); Calcium 7.7 mg/dL (8.4-10.2); Carbon Dioxide 36 mmol/L (22-32); Chloride 98 mmol/L (98-107); Estimated Glomerular Filt Rate > 60.0 mL/min (>60); Globulin 2.9 g/dL (1.7-4.1); Glucose 114 mg/dL (80-110); HEMOLYSIS < 15 (0-50); Iron 93 ug/dL (49-181); Magnesium 2.2 mg/dL (1.6-2.3); Sodium 135 mmol/L (137-145); Total Protein 5.6 g/dL (6.3-8.2)
[2020-07-07 05:22] LABS: Cholesterol 69 mg/dL (140-199); HDL Cholesterol 27 mg/dL (40-60); LDL Cholesterol Calculated 27 mg/dL (<100); Triglycerides 73 mg/dL (35-150)
[2020-07-07 05:30] LABS: NT-proBNP (BNP-Adult 18+) 1640 pg/mL (<125)
[2020-07-07 05:32] LABS: Percent Iron Saturation 43 % (20-50); Total Iron Binding Capacity 217 ug/dL (261-462); Transferrin 135 mg/dL (206-381)
[2020-07-07 05:47] LABS: Hemoglobin A1C% w Est Avg Glu 6.9 % (4.0-6.0)
[2020-07-07 05:56] LABS: TSH w/ Reflex to FT4 2.42 uIU/mL (0.47-4.68)
[2020-07-07 06:18] LABS: Folate 6.7 ng/mL (2.76-20.0); Vitamin B12 Reflex MMA if <400 961 pg/mL (239-931)
--- NOTE | 2020-07-07 06:34 | PC.NURSE ---
Bellstand Attendant Note-Patient awake most of the night, speech is slow and delayed but appropriate. NIH 1. He is oriented x3, forgetful, uses call light appropriately. A-fib CVR, VSS, SpO2 >94% on RA, c/o back pain relieved with repositioning. Denies N/V/D.
[2020-07-07] MEDS: POTASSIUM CHLORIDE 40 MEQ in SODIUM CHLORIDE 0.9% 500 ML 130 ML IV (08:57)
[2020-07-07] MEDS: RIVAROXABAN 10 MG TABLET 20 MG PO (08:57)
[2020-07-07] MEDS: TIMOLOL 0.5% OPHTH 1 DROPS EYE-BOTH ×2 (08:57→22:13)
[2020-07-07] MEDS: SODIUM CHLORIDE 0.9% FLUSH 10 ML IV (08:57)
[2020-07-07] MEDS: METOPROLOL ER 50 MG TABLET PO ×2 (08:58→17:24)
--- NOTE | 2020-07-07 09:40 | PT.IIE ---
Surgical History (Last Updated 07/06/20 @ 18:34 by Rajinder Rao DO) History of prostatectomy Medical History (Last Updated 07/06/20 @ 18:34 by Rajinder Rao DO) Alcoholism Atrial fibrillation CAD (coronary artery disease) Ischemic cardiomyopathy Persistent atrial fibrillation Prostate cancer Physical Therapy Inpatient Evaluation/Re-Eval M1 PT/OT-IP Prior Functional Status Start: 07/07/20 11:28 Freq: NEEDED Status: Active Protocol: Document 07/07/20 09:40 AB (Rec: 07/07/20 11:43 AB [email or web address]) Medical Review Prior Functional Status Medical History Reviewed Yes Communication able to make needs known Mobility and Gait stated that his brother assists him as needed; stated that he ambulated using a 4WW but is not clear if he uses it all the time or not. Social History Household Members family Living Arrangements House Number of Floors (Floors) One Floor Number of Stairs To Enter/Railing? 2 steps without rails Home Environment Tub/Shower Home Equipment Four Wheel Walker,Shower Seat with Backrest,Hand Held Shower ,Grab Bars Near Toilet,Grab Bars In Shower Additional Social History Comment pt stated that he has rails all over the house M2 PT-IP Current Condition Start: 07/07/20 11:28 Freq: NEEDED Status: Active Protocol: Document 07/07/20 09:40 AB (Rec: 07/07/20 11:43 AB [email or web address]) Physical Therapy Current Condition Current Condition Evaluation Date 07/07/20 Treatment Diagnosis failure to thrive; difficulty in walking Onset Date 07/06/20 Precautions Other Precautions falls M3 PT-IP Subjective Start: 07/07/20 11:28 Freq: NEEDED Status: Active Protocol: Document 07/07/20 09:40 AB (Rec: 07/07/20 11:43 AB [email or web address]) Subjective Physical Therapy Visit Type Type Initial Evaluation Visit Start Time 09:40 Visit Stop Time 10:09 Total Visit Minutes 29 Number of CLOTHING SUPERVISOR Visits 0 Physical Therapy Visit Comments Patient Comments pt is agreeable to do PT Therapy Pain Assessment Pain When Pain Assessed At Rest Pain Present Pain Present Pain Reported Location Generalized Scale Used pain scale not stated M4 PT-IP Mobility and Gait Start: 07/07/20 11:28 Freq: NEEDED Status: Active Protocol: Document 07/07/20 09:40 AB (Rec: 07/07/20 11:43 AB [email or web address]) PT-Bed Mobility Assessment Supine to Sit Supine to Sit Standby Assistance Sit to Supine Sit to Supine Standby Assistance PT-Transfer Assessment Sit to and From Stand Sit to and from Stand Contact Guard Assistance,1 Person Assistance,Use of Upper Extremities Equipment Transfer Assistive Device Gait Belt,Front Wheeled Walker Orthotic/Prosthetic Devices or Brace: No Transfers Transfer Destination Bed Transfer Technique ambulated using FWW Transfer Ability Level of Assist Contact Guard Assistance Comments Mobility Comments pt sitting on chair. agreeable to do PT. BP in sittin/56. completed sit to stand CGA and ambulated towards the bed ~ 12 ft using FWW CGA. pt completed supine< >sit SBA and cues. requested to just stay in bed and completed sit to supine SBA. positioned in bed. call light and table placed within reach . BP at end of session: 97/54. without c/o dizziness/nausea /lightheadedness. Gait Assessment Gait Gait Assistance Required: Contact Guard Assist Distance (Feet) 12 Able to Maintain Weight Bearing Status Yes During Gait Assistive Devices Assistive Device Gait Belt,Front Wheeled Walker Orthotic/Prosthetic Devices or Brace: No Gait Deviations General Gait Pattern Decreased Stride Length, Decreased Feet Clearance Factors Limiting Gait Function Factors Limiting Gait Function Decreased Activity Tolerance, Decreased Strength,Limited Range of Motion,Pain,Poor Balance,Poor Safety Awareness PT-Balance Assessment Sitting Balance and Reactions Static Sitting Balance Ability Good Dynamic Sitting Balance Ability Good Standing Balance and Reactions Static Standing Balance Ability Fair Dynamic Standing Balance Ability Fair Device Used FWW M5 PT-IP Objective Assessments Start: 07/07/20 11:28 Freq: NEEDED Status: Active Protocol: Document 07/07/20 09:40 AB (Rec: 07/07/20 11:43 AB [email or web address]) Orientation Orientation/Cognition Level of Alertness Alert Orientation Name,Month,Year Safety Awareness Decreased Safety Awareness Memory Description Short Term Impaired Gross Range of Motion Lower Extremity ROM Assessment Within Functional Limits Strength Lower Extremity Strength Hip 3+/5 Knee 4-/5 Muscle Tone Muscle Tone WNL Yes M6 PT-IP Treatment Start: 07/07/20 11:28 Freq: NEEDED Status: Active Protocol: Document 07/07/20 09:40 AB (Rec: 07/07/20 11:43 [email or web address] Physical Therapy Treatment Education Education Provided Safety M7 PT-IP Assessment and Plan Start: 07/07/20 11:28 Freq: NEEDED Status: Active Protocol: Document 07/07/20 09:40 AB (Rec: 07/07/20 11:43 AB [id number]) PT Summary Assessment and Plan Potential Rehabilitation Potential Good Status of Condition at Evaluation Stable Summary Impairments Pain,ROM,Strength,Balance, Coordination,Sensation, Cognition,Bed Mobility, Transfers,Gait,Activity Tolerance Assessment Summary pt requiring CGA with mobility but presents with decrease activity tolerance affecting independence. d/c plan depending on assistance at home. At this time, will require further strengthening to improve mobility independence and may require SNF rehab. If pt goes home with assistance, will need HHPT. will continue to assess progress. Goals Bed Mobility Goal Independent Transfer Goal Independent,Front Wheeled Walker,Four Wheeled Walker Gait Goal Independent,Front Wheel Walker ,Four Wheel Walker Gait Distance 100 Other Goals improve ambulation using 4WW 200 ft SBA up/down 2 steps CHART COMPUTER min A Days to Meet Goals 10 Frequency of Treatment Frequency Of Treatment Once a Day Treatment Plan Physical Therapy Treatment Plan Bed Mobility Training,Transfer Training,Gait Training, Therapeutic Exercise,Balance Retraining,Post Op Education, Discharge Planning, Neuromuscular Re-ed Other Recommendations and Next Treatment ambulation Focus Recommendations To Nursing Amount of Assist Needed 1 Person Assist Discharge Recommendations PT Discharge Recommendations Home with 19/12 Assist Available,Home Health Transportation Needs at Discharge Private Vehicle
--- NOTE | 2020-07-07 10:42 | DIET.PN ---
Dietary Progress Note Assessment: 75y M admitted for failure to thrive and increasing weakness, lethargy, poor appetite, and diarrhea x3w referred to nutrition for malnutrition assessment. Pt reports living c his brother who encouraged him to be assessed in the ED of for his increasing weakness, lethargy, poor PO intake, and diarrhea which has been ongoing for 3w. Pt states while he feels some hunger, he cannot tolerate most things secondary to tasting like it has been heavily coated in chemicals. Pt feels the only food he could tolerate would be a pancake with butter and maple syrup. During nutrition focused physical exam pt demonstrated how he repositions himself in bed secondary to weakness. Pt uses his arms to reposition and bend knees and reports having a grab bar above his bed at home. Pt has moderate to severe fat losses in clavicle, deltoid, ribs, and BLE with prominent bony landmarks along arms, trunk, and legs. Pt has moderate muscle losses in lower legs with quite remarkable loose, wrinkled skin around lower leg indicating rapid weight loss. Pt has dry, white patchy skin on all four limbs with raised white scabs. Pts weight assessment per pt and his brother (who is roomate) shows severe 10.2% unintentional weight loss in 3w, and pt remains 31% under his usual healthy adult weight. Pt's taste changes and recent severe weight loss put him at high risk for continued decline as the POs pt feels he can tolerate provide very little nutrition and nearly no protein needed for repletion. HT: 167.6cm WT: 53kg UBW: 59kg with healthy adult weight previously 77kg BMI: 18.9 (severe for age) Labs: Hgb 7.8 L, K+ 3.0 L, Cr 0.57 L, A1c 6.9 H, WBC 6.3 WNL, TP 5.6 L, alb 2.7 L, alk phos 1441 H, B12 961 H MNA: 9 @ risk for malnutrition Jered: 19 Nutrition Diagnosis: Severe Acute on Chronic PCM r/t taste changes, weakness, and acute GI sx aeb 10.2% unintentional weight loss in 3w, pt reports severely reduced intake (<25% EER) secondary to food tasting like it is covered in chemicals, persistent diarrhea x3w, NFPE showing global moderate fat and muscle losses with visible prominent bony landmarks of shoulder, wrist, and knee joints, loose skin indicating rapid weight loss, pt using grab bar to sit up in home and reliant on arms to reposition his legs in bed. Interventions: 1. Recc trialing variety of PO and ONS to find intake which can support the high nutritional needs of this patient. 2. RD to provide continued nutrition counseling to pt during hospital stay. Diet Order: EER: 70g PRO (1.3g/kg per PCM), 1800 kcals (35kcal/kg per PCM) Monitoring/Evaluations: following daily, trialing ONS, monitor POs
--- NOTE | 2020-07-07 12:45 | OT.IP.EVAL ---
Past Medical History (Last Updated 07/06/20 @ 18:34 by Rajinder Rao DO) Alcoholism Atrial fibrillation CAD (coronary artery disease) Ischemic cardiomyopathy Persistent atrial fibrillation Prostate cancer Surgical History (Last Updated 07/06/20 @ 18:34 by Rajinder Rao DO) History of prostatectomy Occupational Therapy Inpatient Evaluation/Re-Eval M1 PT/OT-IP Prior Functional Status Start: 07/07/20 11:53 Freq: NEEDED Status: Active Protocol: Document 07/07/20 10:55 [facility] (Rec: 07/07/20 12:45 [facility] [id number]) Medical Review Prior Functional Status Medical History Reviewed Yes Communication able to make needs known Mobility and Gait stated that his brother assists him as needed; stated that he ambulated using a 4WW but is not clear if he uses it all the time or not. Activities of Daily Living and IADL's Pt states has been needing more assist to help his brother for dressing and showering needs. Prior Functional Level (Other details) Per pt's brother prior to 3 weeks ago, his brother was able to care for himself and not needing any assist and also did not use a device. Pt also lives with 2 friends at the house that can physically assist pt if needed. Social History Household Members family Living Arrangements House Number of Floors (Floors) One Floor Number of Stairs To Enter/Railing? 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 Pt's brother came in at the end of the session. Patient/Caregiver Goals To get stronger. OT Pain Assessment Pain When Pain Assessed At Rest Pain Present Pain Present Denied Pain M4 OT- IP ADL's Start: 07/07/20 11:53 Freq: Status: Active Protocol: Document 07/07/20 10:55 [facility] (Rec: 07/07/20 12:45 [facility] [id number]) OT [id number] Comments OT Self-Feeding Comments Not at meal time. OT ADL-Grooming Comments OT Grooming Comments Not performed, pt too tired. OT ADL-Dressing General Eval Lower Body Dressing Ability Maximum Assistance Comments OT Dressing Comments Pt needing assist to nikky socks over his feet. OT ADL-Toileting Comments OT Toileting Comments Pt not having to go at this time. OT ADL-Bathing Comments OT Bathing Comments Not performed. M5 OT- IP IADL's Start: 07/07/20 11:53 Freq: Status: Active Protocol: Document 07/07/20 10:55 [facility] (Rec: 07/07/20 12:45 [facility] [id number]) OT-Instrumental Activities of Daily Living Deficits IADL Deficits Identified Deficits Home Safety Awareness Awareness of Need for Assistance at Home Decreased Awareness Ability to Problem Solve Emergency Able to Problem Solve Situations Home Safety Comments Pt needing increased time to figure out home safety questions. Pt also having word finding issues and not able to state fire extinguisher. Pt not able to recall process for use of fire extinguisher. Medication Management Medication Management Caregiver Administers Medication Management Comments Pt's brother states in the past 2-3 weeks has been assisting his brother for all medications and finance needs . Money Management Money Management Caregiver Provides Assistance Meal Preparation Meal Preparation Caregiver Provides Assist Legal Internship Legal Internship Caregiver Provides Assist Driving Driving Caregiver Provides Assist M6 OT- IP Functional Cognition Start: 07/07/20 11:53 Freq: Status: Active Protocol: Document 07/07/20 10:55 [facility] (Rec: 07/07/20 12:45 [facility] [id number]) Cognitive Factors Limiting Selfcare Function Cognitive Ability Level of Alertness Alert,Confusional State Patient Orientation Name,Year,Day of Week,Place Attention Span Ability Capable of Focused Attention, Unable to Sustain Attention Ability to Follow Commands Able to Follow One Step Commands with Increased Time, Able to Follow One Step Commands with Repetition Memory Description Short Term Impaired,Working Impaired Problem Solving Ability Unable to Identify Errors, Needs Assist to Identify Solutions Executive Function Ability Unable to Make Plans,Unable to Organize Plans,Unable to Remember Details Cognitive Tests SLUMS Pt scored 5/30 on the SLUMS which implies severe cognitive deficits. Pt only able to get what day of the week it is, what year it is, what state it is , and able to place an x on the triangle and pick out the largest shape out of 3 shapes. Cognitive Comments Cognitive Assessment Comments During the SLUMS assessment, pt not able to recall long enough to be able to answer questions on the items. Pt's brother states noted that his brother has been having progressively more difficulties with his short term memory and now having to help with his medications and bills. OT- Vision and Hearing OT- Vision Assessment Visual Acuity Glasses All The Time Vision Assessment Comments Pt's glasses not in the hospital. Pt able to read the clock properly. M7 OT- IP Mobility and Balance Start: 07/07/20 11:53 Freq: Status: Active Protocol: Document 07/07/20 10:55 [facility] (Rec: 07/07/20 12:45 [facility] [id number]) OT- Bed Mobility Assessment Rolling Level of Assistance Minimal Assistance Supine to Sit Supine to Sit Assist Minimal Assistance Sit to Supine Sit to Supine Assist Minimal Assistance OT-Transfer Assessment Sit to and From Stand Sit to and from Stand Contact Guard Assistance Comments Mobility Comments Pt needing STEPHANIA to help get his trunk upright from side lying. Pt also needing assist to help get his legs back into the bed from supine to sit. Pt able to stand with CGA with use of his legs on the back on the bed to assist to stand. OT- Gait Assessment Comments Gait Ability Comments Pt too tired and not wanting to walk and feeling dizzy. Pt's BP 98/56. OT- Balance Assessment Sitting Balance and Reactions Static Sitting Balance Ability Good Dynamic Sitting Balance Ability Fair Standing Balance and Reactions Static Standing Balance Ability Fair M8 OT- IP Objective Assessments Start: 07/07/20 11:53 Freq: Status: Active Protocol: Document 07/07/20 10:55 [facility] (Rec: 07/07/20 12:45 [facility] [id number]) OT Gross Range of Motion Upper Extremity Range of Motion Assessment Bilaterally Impaired ROM Impairments BUE shoulder flexion 0-100. OT Strength Comments Strength Comments 4-/5 to 4/5 from proximal to distal OT- Coordination Assessment Comments Coordination Comments Initially off right hand ( 1inch ) and left hand 9 (.5 inches)and then able to touch the tip on his nose. OT-Muscle Tone Assessment Muscle Tone WNL Yes OT Sensation Assessment Comments Summary Comments Intact for light touch. M9 OT- IP Assessment and Plan Start: 07/07/20 11:53 Freq: Status: Active Protocol: Document 07/07/20 10:55 [facility] (Rec: 07/07/20 12:45 [facility] [id number]) OT Summary Assessment and Plan Potential Rehabilitation Potential Good Analytic Complexity at Evaluation Moderate Summary OT Impairments Range of Motion,Strength, Balance,Coordination, Functional Cognition, Functional Mobility,Grooming, Dressing,Toileting,Bathing, Toilet Transfers,Shower Transfers,Activity Tolerance Progress Towards Goals Slow Progress due to Medical Issues,Slow Progress due to Activity Tolerance,Slow Progress due to Cognition Assessment Summary Pt MOD complexity due to subacute CVA and now needing assist for ADL, mobility and having decreased functional cognition and activity tolerance. Pt would benefit from skilled rehab as pt is far from baseline of independent with all mobility needs with no devices and prior able to care for himself . Pt is cooperative and motivated to get better. Goals Grooming Goal Independent Dressing Goal Independent Toileting Goal Independent Bathing Goal Independent Toilet Transfer Goal Independent Shower Transfer Goal Independent Days to Meet Goals 15 Frequency of Treatment Frequency Of Treatment Once a Day Treatment Plan OT Treatment Plan ADL Training,Functional Cognition Training,Functional Mobility,Patient/Family Education,Discharge Planning Other Treatment Recommendations and Next Shower Treatment Focus Discharge Recommendations OT Discharge Recommendations SNF Rehab Home Equipment Needs defer to SNF Transportation Needs at Discharge Wheelchair/Cabulance
--- NOTE | 2020-07-07 13:17 | PC.NURSE ---
Patient alert, oriented to self,month and place, denies pain and nausea. One person assist to bathroom with FWW. HR up into the 140-150's with ambulation, at rest 110-125, afib. Dr Rao aware, no new orders at this time.
--- NOTE | 2020-07-07 14:11 | CM.DANOTE ---
DCP/Assessment: Reviewed chart. Patient is a 75yr old male admitted to [facility] failure to thrive. No PCP listed. Primary payor is 1)Medicare 2)[employer]. Met with patient and brother/Yaakov today explained CM/SW role. Patient appears alert and oriented and capable of answering questions. Brother reports that he lives with patient since 2011 in [place] Patient rents out room to a couple as well. Brother reports that for the last 2 weeks patient has been very weak and unable to care for himself. Prior to that brother reports patient I in ADL's. Patient previously drove and ambulated without complication. PT/OT evaluations currently pending. In addition to weakness patient has lost a significant amount of weight over the last few weeks. Nutrition following. At this time it is anticipated that patient will need SNF when medically stable. Confirmed with provider that patient inpatient status as of 07-07-2020. Patient and brother agreeable for patient to go to SNF for short amount of time when stable. Provided them with list of options. First choice is [facility]. Placed call to Bell at [facility] to evaluate. Patient meets criteria for SNF on 07-10-2020. Other options include home with HH. If patient improves over the next 24-48hrs. patient and brother agreeable to either d/c plan. P: Anticipate d/c to SNF when medically stable. NEETA Tubbs Discharge Planning/Care Management CM Discharge Assessment Start: 07/07/20 12:52 Freq: Status: Active Protocol: Document 07/07/20 14:06 [facility] (Rec: 07/07/20 14:11 [facility] [id number]) Discharge Planning Assessment Assigned Land Sales Agent NEETA Tubbs Contact Information Yaakov Choi (brother) ph# [phone] and [phone]. Advance Directives? No History Provided By Patient,Family Member,Medical Record Prior Living Arrangements House Household Members family Type of transporation used prior to Relies on Others admit Comment Patient currently relies on both family and friends. Independent with ADL's No Is patient alert and oriented? Yes Caregiver for Another No Comment None known Patient/Family Preference [facility] Facility Barriers to Discharge No Discharge Plan [facility] Facility Transportation Arrangement Facility Referrals Initiated [facility] Medicare Choice List Provided Yes SNF/HH Preference [facility] Contact Name/Phone October phone# [phone] Has Agency SNF been contacted Yes Whiteboard Updated in Patient Room with Yes name and ext. # of Land Sales Agent Review Status In Process Next Review Type Continued Stay Review
--- NOTE | 2020-07-07 15:13 | PM.PN.1 ---
Subjective Subjective Date Patient Seen: 07/07/20 Time Patient Seen: 15:13 Interval history: Dandre Choi is a 75 year old male with PMH of Alcoholism, ischemic cardiomyopathy (s/p JAMES to mLAD 07/2016 EF as low at 10-15% improved to normal in 2018), persistent atrial fibrillation, memory impairment who was BIBEMS for 3 weeks of continued weakness, lethargy, poor appetite, and diarrhea. 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 Was also seen to have a pleural effusion however patient is seemingly without symptoms and Chest xray was negative. Remains profoundly weak but denies specific symptoms of abdominal pain, chest pain, palpitations. Hg fell slightly today. Metoprolol was held yesterday evening, does get tachycardic with exertion but in the 80s-90s at rest. Exam Vital Signs (past 8 hours): - 07/07/20 08:01 07/07/20 12:00 Temperature 98.2 F 98.2 F Pulse Rate 105 H 97 H Respiratory Rate 18 18 Blood Pressure 96/63 98/68 Pulse Oximetry 100 100 Oxygen Delivery Method Room Air Oxygen Flow Rate 0 Narrative Exam Narrative: GENERAL APPEARANCE: Chronically ill appearing, malnourished appearing elderly male, in no acute distress. SKIN: Inspection of the skin reveals no rashes, ulcerations or petechiae. HEENT: Normocephalic atraumatic, extraocular muscles are intact, oropharynx is clear and mucous membranes are moist, neck is supple without adenopathy NECK: Supple and symmetric. There was no thyroid enlargement, and no tenderness, or masses were felt. CHEST: Normal AP diameter and normal contour without any kyphoscoliosis. LUNGS: Auscultation of the lungs revealed diminished breath sounds bilaterally without wheezes, rhonchi, rales. CARDIOVASCULAR: Irregularly irregular rhythm with normal rate without any murmurs, gallops, rubs. Peripheral pulses were 2+ and symmetric. ABDOMEN: Soft and nontender with normal bowel sounds. No ascites was noted. MUSCULOSKELETAL: There was no tenderness or effusions noted. Muscle strength in upper extremities was unremarkable, lower extremities now symmetrically weak EXTREMITIES: No cyanosis, clubbing or edema. NEUROLOGIC: Alert and oriented x 3. Normal affect. Gait was not assessed. Probable mild cognitive impairment. Sensation to touch was normal. Bilateral lower extremity weakness. Finger to nose equal bilaterally. Objective Imaging Echo: Radiologist's impression: Interpretation Summary The patient was in atrial fibrillation with heart rates between 81-125 bpm during the exam. The left ventricle is normal in size and wall thickness. The ejection fraction is estimated to be 55-60%. The right ventricle is normal in size and function. Both atria are severely dilated. There is mild mitral regurgitation. There is mild to moderate tricuspid regurgitation. The right ventricular systolic pressure is estimated to be at least 33 mmHg based on an estimated right atrial pressure of 8 mm Hg. MRI - head: Radiologist's impression: IMPRESSION: BRAIN MRI: No findings of acute or subacute infarction can be seen. At the site of the head CT abnormality within the left parietal region, there is increased T2 weighted signal, without enhancement. This may be related to a remote infarct. Differential diagnosis includes a nonenhancing neoplasm, yet this is considered to be less likely. If clinically appropriate, please consider a follow-up contrast-enhanced brain MRI in 6-8 weeks. 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 Note is made of age-appropriate brain parenchymal volume loss and chronic small vessel ischemic changes. BRAIN MR ANGIOGRAM: No significant intracranial arterial abnormality is seen. NECK MR ANGIOGRAM: Within the arteries of the neck, no hemodynamically significant stenosis can be seen. Bilateral pleural effusions are noted, right larger than left. Labs Result Diagrams: 07/07/20 04:30 07/07/20 04:30 Labs: Laboratory Results - last 24 hr 07/06/20 07/06/20 07/06/20 15:25 15:25 15:25 WBC 7.3 RBC 2.98 L Hgb 8.4 L Hct 25.7 L MCV 86.2 MCH 28.1 MCHC 32.6 RDW 19.3 H Plt Count 153 Neut % (Auto) 66.0 Lymph % (Auto) 24.6 L [place] % (Auto) 7.9 Eos % (Auto) 0.7 L Baso % (Auto) 0.8 Neut # (Auto) 4800 Lymph # (Auto) 1800 [place] # (Auto) 600 Eos # (Auto) 0 Baso # (Auto) 100 PT 22.6 H INR 2.0 H APTT 29 Sodium 135 L Potassium 2.5 L* Chloride 96 L Carbon Dioxide 38 H BUN 14 Creatinine 0.62 L Estimated GFR > 60.0 BUN/Creatinine Ratio 22.6 H Glucose 104 Hemoglobin A1c Calcium 7.5 L Magnesium Iron TIBC % Saturation Transferrin Total Bilirubin 0.5 Conjugated Bilirubin Unconjugated Bilirubin AST 39 ALT 8 Alkaline Phosphatase 1507 H Ammonia Total Creatine Kinase CK-MB (CK-2) CK-MB (CK-2) Rel Index Troponin I NT-Pro-B Natriuret Pep Total Protein 6.0 L Albumin 3.0 L Globulin 3.0 Albumin/Globulin Ratio 1.0 Triglycerides Cholesterol LDL Cholesterol, Calc HDL Cholesterol Lipase Vitamin B12 Folate Procalcitonin TSH Urine Color Urine Appearance Urine pH Ur Specific [place] Urine Protein Urine Glucose (UA) Urine Ketones Urine Occult Blood Urine Nitrate Urine Bilirubin Urine Urobilinogen Ur Leukocyte Esterase Urine RBC Urine WBC Ur Squamous Epith Cells Urine Bacteria Granular Casts Ur Culture Indicated? Salicylates Acetaminophen Ethyl Alcohol < 10 SARS-CoV-2 (PCR) 07/06/20 07/06/20 07/06/20 15:25 15:25 15:25 WBC RBC Hgb Hct MCV MCH MCHC RDW Plt Count Neut % (Auto) Lymph % (Auto) [place] % (Auto) Eos % (Auto) Baso % (Auto) Neut # (Auto) Lymph # (Auto) [place] # (Auto) Eos # (Auto) Baso # (Auto) PT INR APTT Sodium Potassium Chloride Carbon Dioxide BUN Creatinine Estimated GFR BUN/Creatinine Ratio Glucose Hemoglobin A1c Calcium Magnesium Iron TIBC % Saturation Transferrin Total Bilirubin Conjugated Bilirubin Unconjugated Bilirubin AST ALT Alkaline Phosphatase Ammonia < 9 L Total Creatine Kinase 72 CK-MB (CK-2) TNP CK-MB (CK-2) Rel Index TNP Troponin I < 0.012 NT-Pro-B Natriuret Pep Total Protein Albumin Globulin Albumin/Globulin Ratio Triglycerides Cholesterol LDL Cholesterol, Calc HDL Cholesterol Lipase 130 Vitamin B12 Folate Procalcitonin 0.08 TSH Urine Color Urine Appearance Urine pH Ur Specific [place] Urine Protein Urine Glucose (UA) Urine Ketones Urine Occult Blood Urine Nitrate Urine Bilirubin Urine Urobilinogen Ur Leukocyte Esterase Urine RBC Urine WBC Ur Squamous Epith Cells Urine Bacteria Granular Casts Ur Culture Indicated? Salicylates Acetaminophen Ethyl Alcohol SARS-CoV-2 (PCR) 07/06/20 07/06/20 07/06/20 15:25 15:25 18:00 WBC RBC Hgb Hct MCV MCH MCHC RDW Plt Count Neut % (Auto) Lymph % (Auto) [place] % (Auto) Eos % (Auto) Baso % (Auto) Neut # (Auto) Lymph # (Auto) [place] # (Auto) Eos # (Auto) Baso # (Auto) PT INR APTT Sodium Potassium Chloride Carbon Dioxide BUN Creatinine Estimated GFR BUN/Creatinine Ratio Glucose Hemoglobin A1c Calcium Magnesium Iron TIBC % Saturation Transferrin Total Bilirubin Conjugated Bilirubin Unconjugated Bilirubin AST ALT Alkaline Phosphatase Ammonia Total Creatine Kinase CK-MB (CK-2) CK-MB (CK-2) Rel Index Troponin I NT-Pro-B Natriuret Pep Total Protein Albumin Globulin Albumin/Globulin Ratio Triglycerides Cholesterol LDL Cholesterol, Calc HDL Cholesterol Lipase Vitamin B12 Folate Procalcitonin TSH Urine Color Urine Appearance Urine pH Ur Specific [place] Urine Protein Urine Glucose (UA) Urine Ketones Urine Occult Blood Urine Nitrate Urine Bilirubin Urine Urobilinogen Ur Leukocyte Esterase Urine RBC Urine WBC Ur Squamous Epith Cells Urine Bacteria Granular Casts Ur Culture Indicated? Salicylates < 1.0 Acetaminophen < 10 L Ethyl Alcohol SARS-CoV-2 (PCR) Negative 07/06/20 07/07/20 07/07/20 21:32 04:30 04:30 WBC RBC Hgb Hct MCV MCH MCHC RDW Plt Count Neut % (Auto) Lymph % (Auto) [place] % (Auto) Eos % (Auto) Baso % (Auto) Neut # (Auto) Lymph # (Auto) [place] # (Auto) Eos # (Auto) Baso # (Auto) PT INR APTT Sodium Potassium Chloride Carbon Dioxide BUN Creatinine Estimated GFR BUN/Creatinine Ratio Glucose Hemoglobin A1c Calcium Magnesium Iron 93 TIBC 217 L % Saturation 43 Transferrin 135 L Total Bilirubin Conjugated Bilirubin Unconjugated Bilirubin AST ALT Alkaline Phosphatase Ammonia Total Creatine Kinase CK-MB (CK-2) CK-MB (CK-2) Rel Index Troponin I NT-Pro-B Natriuret Pep 1640 H Total Protein Albumin Globulin Albumin/Globulin Ratio Triglycerides Cholesterol LDL Cholesterol, Calc HDL Cholesterol Lipase Vitamin B12 Folate Procalcitonin TSH Urine Color Yellow Urine Appearance Sl cloudy Urine pH 7.0 Ur Specific [place] 1.015 Urine Protein 2+ H Urine Glucose (UA) Negative Urine Ketones Negative Urine Occult Blood 1+ H Urine Nitrate Negative Urine Bilirubin Negative Urine Urobilinogen 1.0 Ur Leukocyte Esterase Negative Urine RBC None seen Urine WBC 5-10/hpf H Ur Squamous Epith Cells 0-1 /hpf Urine Bacteria Many (>30) H Granular Casts 5-10/lpf Ur Culture Indicated? Specimen cultured Salicylates Acetaminophen Ethyl Alcohol SARS-CoV-2 (PCR) 07/07/20 07/07/20 07/07/20 04:30 04:30 04:30 WBC 6.3 RBC 2.79 L Hgb 7.8 L Hct 24.0 L MCV 86.0 MCH 28.0 MCHC 32.6 RDW 19.8 H Plt Count 132 L Neut % (Auto) 63.3 Lymph % (Auto) 26.6 [place] % (Auto) 8.4 Eos % (Auto) 1.1 L Baso % (Auto) 0.6 Neut # (Auto) 4000 Lymph # (Auto) 1700 [place] # (Auto) 500 Eos # (Auto) 100 Baso # (Auto) 0 PT INR APTT Sodium Potassium Chloride Carbon Dioxide BUN Creatinine Estimated GFR BUN/Creatinine Ratio Glucose Hemoglobin A1c Calcium Magnesium Iron TIBC % Saturation Transferrin Total Bilirubin Conjugated Bilirubin Unconjugated Bilirubin AST ALT Alkaline Phosphatase Ammonia Total Creatine Kinase CK-MB (CK-2) CK-MB (CK-2) Rel Index Troponin I NT-Pro-B Natriuret Pep Total Protein Albumin Globulin Albumin/Globulin Ratio Triglycerides 73 Cholesterol 69 L LDL Cholesterol, Calc 27 HDL Cholesterol 27 L Lipase Vitamin B12 961 H Folate 6.7 Procalcitonin TSH Urine Color Urine Appearance Urine pH Ur Specific [place] Urine Protein Urine Glucose (UA) Urine Ketones Urine Occult Blood Urine Nitrate Urine Bilirubin Urine Urobilinogen Ur Leukocyte Esterase Urine RBC Urine WBC Ur Squamous Epith Cells Urine Bacteria Granular Casts Ur Culture Indicated? Salicylates Acetaminophen Ethyl Alcohol SARS-CoV-2 (PCR) 07/07/20 07/07/20 07/07/20 04:30 04:30 04:30 WBC RBC Hgb Hct MCV MCH MCHC RDW Plt Count Neut % (Auto) Lymph % (Auto) [place] % (Auto) Eos % (Auto) Baso % (Auto) Neut # (Auto) Lymph # (Auto) [place] # (Auto) Eos # (Auto) Baso # (Auto) PT 21.0 H INR 1.8 H APTT Sodium 135 L Potassium 3.0 L Chloride 98 Carbon Dioxide 36 H BUN 12 Creatinine 0.57 L Estimated GFR > 60.0 BUN/Creatinine Ratio 21.1 Glucose 114 H Hemoglobin A1c 6.9 H Calcium 7.7 L Magnesium 2.2 Iron TIBC % Saturation Transferrin Total Bilirubin 0.5 Conjugated Bilirubin 0.0 Unconjugated Bilirubin 0.6 AST 33 ALT 7 Alkaline Phosphatase 1441 H Ammonia Total Creatine Kinase CK-MB (CK-2) CK-MB (CK-2) Rel Index Troponin I NT-Pro-B Natriuret Pep Total Protein 5.6 L Albumin 2.7 L Globulin 2.9 Albumin/Globulin Ratio 0.9 L Triglycerides Cholesterol LDL Cholesterol, Calc HDL Cholesterol Lipase Vitamin B12 Folate Procalcitonin TSH Urine Color Urine Appearance Urine pH Ur Specific [place] Urine Protein Urine Glucose (UA) Urine Ketones Urine Occult Blood Urine Nitrate Urine Bilirubin Urine Urobilinogen Ur Leukocyte Esterase Urine RBC Urine WBC Ur Squamous Epith Cells Urine Bacteria Granular Casts Ur Culture Indicated? Salicylates Acetaminophen Ethyl Alcohol SARS-CoV-2 (PCR) 07/07/20 04:30 WBC RBC Hgb Hct MCV MCH MCHC RDW Plt Count Neut % (Auto) Lymph % (Auto) [place] % (Auto) Eos % (Auto) Baso % (Auto) Neut # (Auto) Lymph # (Auto) [place] # (Auto) Eos # (Auto) Baso # (Auto) PT INR APTT Sodium Potassium Chloride Carbon Dioxide BUN Creatinine Estimated GFR BUN/Creatinine Ratio Glucose Hemoglobin A1c Calcium Magnesium Iron TIBC % Saturation Transferrin Total Bilirubin Conjugated Bilirubin Unconjugated Bilirubin AST ALT Alkaline Phosphatase Ammonia Total Creatine Kinase CK-MB (CK-2) CK-MB (CK-2) Rel Index Troponin I NT-Pro-B Natriuret Pep Total Protein Albumin Globulin Albumin/Globulin Ratio Triglycerides Cholesterol LDL Cholesterol, Calc HDL Cholesterol Lipase Vitamin B12 Folate Procalcitonin TSH 2.42 Urine Color Urine Appearance Urine pH Ur Specific [place] Urine Protein Urine Glucose (UA) Urine Ketones Urine Occult Blood Urine Nitrate Urine Bilirubin Urine Urobilinogen Ur Leukocyte Esterase Urine RBC Urine WBC Ur Squamous Epith Cells Urine Bacteria Granular Casts Ur Culture Indicated? Salicylates Acetaminophen Ethyl Alcohol SARS-CoV-2 (PCR) [facility] Medical History (Updated 07/06/20 @ 18:34 by Rajinder Rao DO) Alcoholism Atrial fibrillation CAD (coronary artery disease) Ischemic cardiomyopathy Persistent atrial fibrillation Prostate cancer Surgical History (Updated 07/06/20 @ 18:34 by Rajinder Rao DO) History of prostatectomy Family History (Updated 07/06/20 @ 18:33 by Rajinder Rao DO) Father CAD (coronary artery disease) Social History household members: family lives independently: Yes Smoking Status: Former smoker alcohol intake: former Assessment & Plan Assessment & Plan narrative: Dandre Choi is a 75 year old male with PMH of Alcoholism, ischemic cardiomyopathy (s/p JAMES to mLAD 07/2016 EF as low at 10-15% improved to normal in 2018), persistent atrial fibrillation, memory impairment who was BIBEMS for 3 weeks of continued weakness, lethargy, poor appetite, and diarrhea admitted with probable subacute CVA. 1. LE weakness, present on admission - CT on admission showing possible subacute L CVA, with prior infarcts noted as well. Likely embolic given his history of atrial fibrillation. Unclear exact timing of infact given presentation. MRI ultimately negative for any acute infarcts. - PT/OT evaluations today, with cognitive testing. - bedside swallow eval unremarkable. No need for speech therapy. - Admission NIHSS 2 given RLE weakness, although now bilaterally weak so suspect chronic issue due to deconditioning and malnutrition. 2. acute severe protein calorie Malnutrition, present on admission - patient with recent weight loss, poor appetite, diarrhea - nutrition consultation appreciated. - suspect multifactorial in setting of chronic infarcts, chronic medical issues, anemia, and decreased appetite. - check for infectious etiology of reported diarrhea with GI panel, however no dirrhea thus far. - consider further age appropriate malignancy screening as an outpatient. 3. Acute anemia, normocytic, present on admission - unclear etiology and unknown chronicity other than Hg was normal about 1 year ago. Suspect a chronic anemic of inflammation at this time. b12 within normal limits as is folate. - Hg 8.7 on admission slightly decreased today with fluids. Will continue to follow. - transfusion if Hg <7. - monitor for evidence of bleeding. If stabilized consider outpatient malignancy screening. - MRI notes bilateral pleural effusions, however not evident on CXR. Consider further outpatient imaging studies. 4. persistent atrial fibrillation - continue home metoprolol as noted below. May need to increase back to home dosing if uncontrolled rates with ambulation. - TTE as noted below. 5. History of ischemic cardiomyopathy - prior EF of 10-15% secondary to EtOH and ischemia (stent to mLAD in 07/2016) which improved to normal on TTE 2018 per cardiac records. - Repeat TTE with normal EF, no significant valvular pathology. - continue xarelto for now as no signs or symptoms of bleeding. - continue home beta mylene at half home dosing (50 mg BID),, held yesterday given low blood pressures but will resume today. May need to increase again if uncontrolled rates with ambulation. 6. history of alcoholism in remission. - no reported drinking since 2016 per patient and family. 7. hypokalemia, acute, present on admission - presumed secondary to GI losses given diarrhea. Repleted with 60 mEQ in the ER, again today with 40 meq. Continue to follow. 8. New diagnosis of type 2 diabetes - A1c 6.9 % on admission. Blood sugars controlled thus far. Consider outpatient metformin. 9. possible bilateral pleural effusions, unknown chronicity, present on admission. - MRI notes bilateral pleural effusions, however not evident on CXR. Consider further outpatient imaging studies as patient is asymptomatic at this time. 10. Possible acute cystitis. - patient asymptomatic, urine culture with many bacteria, few white cells and was sent for culture. No fever or leukocytosis and patient asymptomatic. Consider treatment if cultures positive. Code: Full Dispo: Admitted under observation at status pending above evaluation at this time. Anticipate he may need half-way upon discharge. Pending PT/OT evaluations. DVT: continue home xarelto. PCP: reportedly has not seen anyone recently. Saw Dr. Henson in the past, along with Dr. Sam but states he had not seen anyone regularly since Dr. Sam left many years ago. Does follow with Dr. Gil annually.
[2020-07-07] MEDS: AMIODARONE 150 MG/100 ML PIGGYBACK 600 MG IV (19:40)
--- NOTE | 2020-07-07 19:55 | PC.NURSE ---
Report received, care assumed 1530. Pt. answers questions of orientation appropriately; however, he is often slow to answer, repeats himself, and seems to have difficulty finding words. Denies pain, demonstrates generalized weakness but equal bilaterally. Brother at bedside; patient is short-tempered and irritable with him. Little appetite. Agitated and restless in bed. I suggested we go for a walk and he was agreeable. He walked approximately 20 feet with a walker, then sat in the wheelchair and we made a loop around the unit. Back to chair in room. Pt in AFib (baseline) throughout shift with HR in 90's to low-100's, increases with activity. However, heart rate increasing even at rest throughout afternoon and evening. Dr. Morrison informed, PO dose of Metoprolol ordered; Dr. Rao aware of BP 90's/60's. Heart rate unresponsive to dose of Metoprolol, continuing to increase up to 170's at 1900. Dr. Rao and FIFI Li, informed. Bolus and maintenance doses amiodarone ordered. Pt. and brother self-reported that patient ate an edible provided by brother. Brother told NOT to bring anymore in, FIFI Li, informed. Pre-bolus BP at 1949: 84/58. Post-bolus BP at 1999: 74/57. No IVF ordered, minimal PO intake. Ofelia informed of hypotension, bolus ordered. Pt. transferred to ICU, report given to JAMES Latif.
[2020-07-07] MEDS: AMIODARONE 360 MG/200 ML PIGGYBACK 33.333 MG IV (20:09)
--- NOTE | 2020-07-07 20:56 | PC.NURSE ---
Evening shift note: Pt moved to ICU room 230, due to the need for Amiodarone gtt, bolus given as ordered, currently receiving Amiodarone at 33.333 for the next 6 hours. BP currently 85/50 with a map of 61, HR 88, AFIB. Provider updated on pt status, 1L bolus ordered and infusing. Report received from Cat RAMIREZ. Bed low and locked, call light within reach, will continue to treat and monitor as ordered.
[2020-07-07 21:17] LABS: BUN Creatinine Ratio 28.8 (6-22); Blood Urea Nitrogen 17 mg/dL (9-20); Calcium 7.4 mg/dL (8.4-10.2); Carbon Dioxide 33 mmol/L (22-32); Chloride 101 mmol/L (98-107); Estimated Glomerular Filt Rate > 60.0 mL/min (>60); Glucose 127 mg/dL (80-110); HEMOLYSIS < 15 (0-50); Magnesium 2.1 mg/dL (1.6-2.3); Potassium 3.5 mmol/L (3.4-5.1); Sodium 135 mmol/L (137-145)
[2020-07-07 21:39] LABS: Hematocrit 24.1 % (41-53); Hemoglobin 7.6 g/dL (13.5-17.5); Mean Corpuscular HGB Conc 31.6 % (30-36); Mean Corpuscular Hemoglobin 27.8 PG (26-34); Platelet Count 125 X10^3/uL (150-400); Red Blood Cell Count 2.74 X10^6/uL (4.5-5.9); White Blood Cell Count 6.4 X10^3/uL (4.5-11.0)
[2020-07-07] MEDS: SODIUM CHLORIDE 0.9% 1,000 ML 1000 ML IV ×2 (21:42→22:47)
[2020-07-07 21:56] LABS: Add Manual Diff / Slide Review YES
[2020-07-07 22:05] LABS: Neutrophils Absolute Manual 4160 /uL (3000-5900); Nucleated Red Blood Cells 2 #/Diff; Total Cells Counted 100
[2020-07-07 22:06] LABS: Anisocytosis 2+
[2020-07-07] MEDS: ATORVASTATIN 20 MG TABLET 40 MG PO (22:13)
[2020-07-07] MEDS: LATANOPROST 0.005% OPHTH 2.5 ML 1 DROPS EYE-BOTH (22:13)
[2020-07-08] VITALS (17 sets, daily range): BP systolic 78–118; BP diastolic 55–75; PULSE 60–125; RESP 14–26; TEMP 36.1–36.7; O2SAT 94–100
[2020-07-08] MEDS: LACTATED RINGERS 1,000 ML 1000 ML IV ×2 (00:53→03:00)
[2020-07-08 05:09] LABS: INR 2.3 (0.9-1.3)
[2020-07-08 05:14] LABS: Alanine Aminotransferase 7 IU/L (<50); Albumin 2.3 g/dL (3.5-5.0); Albumin Globulin Ratio 0.9 (1.0-2.8); Alkaline Phosphatase 1254 U/L (38-126); Aspartate Aminotransferase 23 IU/L (17-59); BUN Creatinine Ratio 26.7 (6-22); Bilirubin Total 0.3 mg/dL (0.2-1.3); Bilirubin Unconjugated 0.3 mg/dL (0.0-1.1); Blood Urea Nitrogen 12 mg/dL (9-20); Calcium 7.4 mg/dL (8.4-10.2); Carbon Dioxide 28 mmol/L (22-32); Chloride 105 mmol/L (98-107); Estimated Glomerular Filt Rate > 60.0 mL/min (>60); Globulin 2.7 g/dL (1.7-4.1); Glucose 117 mg/dL (80-110); HEMOLYSIS < 15 (0-50); Hemoglobin 7.2 g/dL (13.5-17.5); Magnesium 1.9 mg/dL (1.6-2.3); Mean Corpuscular Volume 87.3 fL (80-100); Platelet Count 113 X10^3/uL (150-400); Potassium 3.3 mmol/L (3.4-5.1); Red Blood Cell Count 2.57 X10^6/uL (4.5-5.9); Red Cell Distribution Width 20.1 % (11.6-14.8); Sodium 133 mmol/L (137-145); White Blood Cell Count 6.4 X10^3/uL (4.5-11.0)
[2020-07-08 05:16] LABS: Add Manual Diff / Slide Review YES; Hematocrit 22.4 % (41-53)
[2020-07-08] MEDS: AMIODARONE 541 MG/300.56 ML PIGGYBACK 16.7 MG IV (05:35)
[2020-07-08 05:41] LABS: Anisocytosis 2+; Neutrophils Absolute Manual 3648 /uL (3000-5900); Total Cells Counted 100
[2020-07-08 05:42] LABS: Poikilocytosis 1+
--- NOTE | 2020-07-08 07:02 | PC.NURSE ---
[employer] Note-Patient's mood has been labile overnight, started drowsy with flat affect, oriented to person, month, and year only, stated I feel zoned out. Around 0400, patient was angry, agitated, cursing, remained confused to situation, by 0600 after resting, he was more alert and oriented, cooperative and pleasant, still confused about some recent events. Amiodarone gtt has been infusing, rate decreased 33.3ml/hr to 16.7ml/hr an hour earlier then protocol per [employer] order d/t hypotension, see vital trends. Patient has received 3 liters NS boluses and 2 liters LR boluses, A-fib CVR/RVR. 1-2 person assist to BSC, slow and steady, voided 400ml, had small soft brown BM, guaiac negative.
[2020-07-08] MEDS: SOTALOL 80 MG TABLET PO ×2 (09:24→21:11)
[2020-07-08] MEDS: TIMOLOL 0.5% OPHTH 1 DROPS EYE-BOTH ×2 (09:24→21:08)
[2020-07-08] MEDS: SODIUM CHLORIDE 0.9% FLUSH 10 ML IV ×2 (09:24→21:13)
[2020-07-08] MEDS: POTASSIUM CHLORIDE 40 MEQ in SODIUM CHLORIDE 0.9% 500 ML 130 ML IV (09:24)
[2020-07-08] MEDS: RIVAROXABAN 10 MG TABLET 20 MG PO (09:24)
--- NOTE | 2020-07-08 10:00 | PT.IPTN ---
Current Diagnoses Cerebral infarction, unspecified (07/07/20) Physical Therapy Treatment Note M2 PT-IP Current Condition Start: 07/07/20 11:28 Freq: NEEDED Status: Active Protocol: Document 07/07/20 09:40 AB (Rec: 07/07/20 11:43 AB [id number]) Physical Therapy Current Condition Current Condition Evaluation Date 07/07/20 Treatment Diagnosis failure to thrive; difficulty in walking Onset Date 07/06/20 Precautions Other Precautions falls M3 PT-IP Subjective Start: 07/07/20 11:28 Freq: NEEDED Status: Active Protocol: Document 07/08/20 09:15 LD (Rec: 07/08/20 13:06 LD [id number]) Subjective Physical Therapy Visit Type Type Treatment Note Visit Start Time 09:15 Visit Stop Time 10:00 Total Visit Minutes 45 Notes NOAH Sheehan led tx with supervision of PAVITHRA Ly. Caregiver training provided with brother, as will be assisting at home. Completed physical assist during tx. Number of RESIDENCE MANAGER Visits 1 Therapy Pain Assessment Pain When Pain Assessed At Rest Pain Present Pain Present Denied Pain Location Generalized Scale Used pain scale not stated M4 PT-IP Mobility and Gait Start: 07/07/20 11:28 Freq: NEEDED Status: Active Protocol: Document 07/08/20 09:15 LD (Rec: 07/08/20 13:06 LD [id number]) PT-Bed Mobility Assessment Supine to Sit Supine to Sit Minimal Assistance Sit to Supine Sit to Supine Standby Assistance Scooting Scooting to Edge of Bed Standby Assistance PT-Transfer Assessment Sit to and From Stand Sit to and from Stand Contact Guard Assistance, Minimal Assistance,1 Person Assistance,Use of Upper Extremities Equipment Transfer Assistive Device Gait Belt,Front Wheeled Walker Orthotic/Prosthetic Devices or Brace: No Transfers Transfer Destination Bed,Chair,Wheelchair Transfer Technique ambulated using FWW Transfer Ability Level of Assist Contact Guard Assistance,1 Person Assistance Comments Mobility Comments Pt laying in bed upon arrival w/ brother present. BP in supine: 96/65. Provided caregiver training with brother. Completed supine<>sit Min A cueing UE assistance, scooting to EOB SBA. BP in sittin/75. Proceeded to transfer from bed>chair CGA, BP: 107/78. Nurse provided medication and portable heart monitor. Then ambulated towards the platform step approx 15 ft using FWW CGA. Performed platform step ( assimulate home entrance) initially w/ FWW CGA ascend and descend. Then w/ 4WW CGA- Sindi ascend w/ support of lifting 4WW on/off step and descend, good recall of locking brakes and providing cues. Ambulated approx 106 ft using 4WW CGA till pt requested a break, pt required a sitting rest break on 4WW due to decrease in strength and activity tolerance,stand pivot transfer to w/c and assisted return back to his room to lay back down in bed. Call and other needs placed within reach. Bed alarm left on. Brother in room when leaving. Gait Assessment Gait Gait Assistance Required: Contact Guard Assist,1 Person Assist Distance (Feet) 120 Able to Maintain Weight Bearing Status Yes During Gait Assistive Devices Assistive Device Gait Belt,Front Wheeled Walker Orthotic/Prosthetic Devices or Brace: No Gait Deviations General Gait Pattern Decreased Stride Length, Decreased Feet Clearance Factors Limiting Gait Function Factors Limiting Gait Function Decreased Activity Tolerance, Decreased Strength,Limited Range of Motion,Pain,Poor Balance,Poor Safety Awareness Comments Gait Comments Pt ambulated w/ FWW CGA initially in his room to platform step approx 15 ft. After completing stair mgmt, pt ambulated an additional ~ 106 ft using 4WW CGA until requesting a break due to fatigueness, then used a w/c to return back to his room. Stair Climbing Assessment Evaluation Level of Assist On Stairs Contact Guard Assistance, Minimal Assistance,1 Person Assistance Devices Stair Climbing Assistive Devices Front Wheel Walker,Four Wheel Walker Technique/Endurance Stair Climbing Direction Ascend and Descend Stair Climbing Technique Step to Step Number of Steps Climbed 1 Stair Climbing Set # Repetitions (reps) 2 Comments Stair Climbing Comments Pt completed a platform step ascending and descending using FWW CGA initially, then proceeded w/ 4WW CGA-Min A x2, requiring cues and assistance w/ placement of FWW on platform. Pt had good recall of locking brakes. PT-Balance Assessment Sitting Balance and Reactions Static Sitting Balance Ability Good Dynamic Sitting Balance Ability Fair Standing Balance and Reactions Static Standing Balance Ability Fair Dynamic Standing Balance Ability Fair Device Used FWW M5 PT-IP Objective Assessments Start: 07/07/20 11:28 Freq: NEEDED Status: Active Protocol: Document 07/07/20 09:40 AB (Rec: 07/07/20 11:43 AB [id number]) Orientation Orientation/Cognition Level of Alertness Alert Orientation Name,Month,Year Safety Awareness Decreased Safety Awareness Memory Description Short Term Impaired Gross Range of Motion Lower Extremity ROM Assessment Within Functional Limits Strength Lower Extremity Strength Hip 3+/5 Knee 4-/5 Muscle Tone Muscle Tone WNL Yes M6 PT-IP Treatment Start: 07/07/20 11:28 Freq: NEEDED Status: Active Protocol: Document 07/08/20 09:15 LD (Rec: 07/08/20 13:06 LD [id number]) Physical Therapy Treatment Education Education Provided Safety M7 PT-IP Assessment and Plan Start: 07/07/20 11:28 Freq: NEEDED Status: Active Protocol: Document 07/08/20 09:15 LD (Rec: 07/08/20 13:06 LD [id number]) PT Summary Assessment and Plan Potential Rehabilitation Potential Good Status of Condition at Evaluation Stable Summary Impairments Pain,ROM,Strength,Balance, Coordination,Sensation, Cognition,Bed Mobility, Transfers,Gait,Activity Tolerance Assessment Summary Caregiver training provided. Pt required CGA-Sindi using a 4WW with stair mgmt, frequent cueing and a good recall of locking brakes. Pt presented fatigueness after ambulating w / 4WW approx 120 ft. Stated, I feel tired and weak and would like to lay down in bed. Continue to assess progress w/ 4WW. Per OT, brother had surgery recently and may not be able to assist the patient. During tx today brother stated he will provide assistance needed to pt. Goals Bed Mobility Goal Independent Transfer Goal Independent,Front Wheeled Walker,Four Wheeled Walker Gait Goal Independent,Front Wheel Walker ,Four Wheel Walker Gait Distance 100 Other Goals improve ambulation using 4WW 200 ft SBA up/down 2 steps CONSULTING SYSTEMS ENGINEER min A Days to Meet Goals 10 Frequency of Treatment Frequency Of Treatment Once a Day Treatment Plan Physical Therapy Treatment Plan Bed Mobility Training,Transfer Training,Gait Training, Therapeutic Exercise,Balance Retraining,Post Op Education, Discharge Planning, Neuromuscular Re-ed Other Recommendations and Next Treatment Continue mobility and Focus ambulation w/ 4WW. Recommendations To Nursing Amount of Assist Needed 1 Person Assist Discharge Recommendations PT Discharge Recommendations Home with 24/7 Assist Available,Home Health Transportation Needs at Discharge Private Vehicle
[2020-07-08 10:01] LABS: Cortisol AM (Before 10AM) 15.6 ug/dL (4.46-22.7)
--- NOTE | 2020-07-08 11:15 | DI.CT.S_ITS ---
PROCEDURE: CT CHEST ABD PEL W CON INDICATIONS: weight loss, anemia. TECHNIQUE: After the administration of oral and intravenous contrast, 5 mm thick sections acquired from the lung apices to the symphysis. 5 mm coronal and sagittal reformats were performed, with additional 7 mm coronal MIP reformats through the lungs. For radiation dose reduction, the following was used: automated exposure control, adjustment of mA and/or kV according to patient size. COMPARISON: [facility], MR, MR STROKE, 07/06/2020, 17:19. [facility], CT, CT HEAD/BRAIN WO CON, 07/06/2020, 14:55. [facility], CT, PE STUDY (CTA CHEST), 04/05/2016, 15:06. [facility], CR, XR CHEST 1V, 07/06/2020, 18:32. FINDINGS: Image quality: Excellent. CHEST: Lungs and pleura: There are moderate pleural effusions bilaterally. Bibasilar atelectasis. There is moderate emphysema. No acute airspace opacities. No pleural pneumothorax. Central and peripheral airways appear patent and normal in caliber. Mediastinum: Heart size is normal. No pericardial effusion. There is moderate coronary artery calcification. There is a 1.5 cm precarinal lymph node. A 1.1 x 1.5 cm subcarinal lymph node identified. Mildly prominent right hilar lymph node measures 0.7 x 1.6 cm. Thoracic aorta and central pulmonary arteries are normal in size. Esophagus is normal in caliber. A hiatal hernia is present. There is concentric thickening at the gastroesophageal junction. Chest wall: No axillary or supraclavicular adenopathy by size criteria. Thyroid gland is known . ABDOMEN: Solid organs: Liver is normal in size and enhancement. Gallbladder is normal. Biliary system is non dilated. Pancreas enhances normally. Spleen is normal in size and enhancement. No adrenal nodules. There is mild right hydronephrosis. A 2 mm stone is seen at the right UVJ. Kidneys demonstrate normal size and enhancement. There is a cortical scar in the left kidney. No left hydronephrosis. Peritoneum and bowel: Bowel loops demonstrate normal wall thickness and caliber. A large amount of stool in colon. No free air. There is a small amount of free fluid in the pericolic gutters and pelvis. Nodes and vessels: There is a 1 cm left para-aortic lymph node. Aorta and inferior vena cava are normal in size. Miscellaneous: No ventral hernias. There is diffuse body wall edema PELVIS: Genitourinary: Bladder wall thickness is normal. Prostate is absent. Multiple surgical clips are present in pelvis. Miscellaneous: No inguinal hernias or adenopathy. Bones: There is diffuse osseous sclerosis consistent with widespread osseous metastases. No vertebral body compression fractures. IMPRESSION: 1. 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 2. Mildly enlarged right mediastinal, right hilar and retroperitoneal lymph nodes. This finding is nonspecific and may be secondary to infectious, inflammatory or neoplastic etiology. Recommend clinical correlation and follow up.. 3. Mild right hydronephrosis and hydroureter secondary to a 2 mm obstructive stone at the right UVJ. 4. Moderate bilateral pleural effusions bilaterally with bibasilar atelectasis. 5. Moderate coronary artery atherosclerosis. 6. There is concentric thickening at the gastroesophageal junction. Recommend upper endoscopy for follow-up evaluation. 7. A small amount of free peritoneal fluid. 8. A large amount of stool in colon consistent with constipation. 9. Diffuse body wall edema. Dictated by: Anita Gonzáles M.D. on 07/08/2020 at 11:32 Approved by: Anita Gonzáles M.D. on 07/08/2020 at 12:32
--- NOTE | 2020-07-08 12:19 | OT.IP.TRT ---
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 Pt finally agreed to shower. Patient/Caregiver Goals TO get stronger. OT Pain Assessment Pain When Pain Assessed At Rest Pain Present Pain Present Denied Pain M4 OT- IP ADL's Start: 07/07/20 11:53 Freq: Status: Active Protocol: Document 07/08/20 12:25 [facility] (Rec: 07/08/20 12:36 [facility] [id number]) OT [id number] Comments OT Self-Feeding Comments Not at meal time. OT ADL-Dressing General Eval Lower Body Dressing Ability Maximum Assistance Comments OT Dressing Comments Pt needing assist to nikky socks over his feet. Assist to nikky brief over his feet and up over his hips. OT ADL-Toileting Comments OT Toileting Comments Pt was incontinent of bowel. OT ADL-Bathing Bathing Type Bathing Type Shower General Evaluation Bathing Ability Maximal Assistance Areas Needing Assistance Wash/Dry Back,Wash/Dry Perineal Area,Wash/Dry Lower Extremities Comments OT Bathing Comments Pt needing MAX A to help remind him what he already washed and what he still needs to wash as pt forgetting what he already washed. Pt need ing assist to wash/dry his BLE,back and completeness for pericare needs. M5 OT- IP IADL's Start: 07/07/20 11:53 Freq: Status: Active Protocol: Document 07/07/20 10:55 [facility] (Rec: 07/07/20 12:45 [facility] [id number]) OT-Instrumental Activities of Daily Living Deficits IADL Deficits Identified Deficits Home Safety Awareness Awareness of Need for Assistance at Home Decreased Awareness Ability to Problem Solve Emergency Able to Problem Solve Situations Home Safety Comments Pt needing increased time to figure out home safety questions. Pt also having word finding issues and not able to state fire extinguisher. Pt not able to recall process for use of fire extinguisher. Medication Management Medication Management Caregiver Administers Medication Management Comments Pt's brother states in the past 2-3 weeks has been assisting his brother for all medications and finance needs . Money Management Money Management Caregiver Provides Assistance Meal Preparation Meal Preparation Caregiver Provides Assist Ordained Minister Ordained Minister Caregiver Provides Assist Driving Driving Caregiver Provides Assist M6 OT- IP Functional Cognition Start: 07/07/20 11:53 Freq: Status: Active Protocol: Document 07/08/20 12:25 [facility] (Rec: 07/08/20 12:36 [facility] [id number]) Cognitive Factors Limiting Selfcare Function Cognitive Ability Level of Alertness Alert,Confusional State Attention Span Ability Capable of Focused Attention, Unable to Sustain Attention Ability to Follow Commands Able to Follow One Step Commands with Increased Time, Able to Follow One Step Commands with Repetition Memory Description Short Term Impaired,Working Impaired Problem Solving Ability Unable to Identify Errors, Needs Assist to Identify Solutions Executive Function Ability Unable to Make Plans,Unable to Organize Plans,Unable to Remember Details Cognitive Comments Cognitive Assessment Comments Pt still having severe short term memory issues and not remembering if he rinsed his armpits right after washing his armpits. Pt needing reminders to help sequence through the task of bathing MAX VC. Pt needing cues to initiate tasks and thought at times. M7 OT- IP Mobility and Balance Start: 07/07/20 11:53 Freq: Status: Active Protocol: Document 07/08/20 12:25 [facility] (Rec: 07/08/20 12:36 [facility] [id number]) OT- Bed Mobility Assessment Rolling Level of Assistance Minimal Assistance Supine to Sit Supine to Sit Assist Minimal Assistance Sit to Supine Sit to Supine Assist Minimal Assistance OT-Transfer Assessment Sit to and From Stand Sit to and from Stand Minimal Assistance,Moderate Assistance Transfers Transfer Ability Minimal Assistance Devices Transfer Assistive Devices Gait Belt,Front Wheeled Walker Comments Mobility Comments Pt needing from STEPHANIA to MOD/ MAX a to stand from lower surfaces. Pt having difficulty to push up from the bed from side lying and not knowing how to best position his arms. OT- Gait Assessment Comments Gait Ability Comments CGA with FWW to walk into and out of the bathroom. OT- Balance Assessment Sitting Balance and Reactions Static Sitting Balance Ability Good Dynamic Sitting Balance Ability Fair Standing Balance and Reactions Static Standing Balance Ability Fair M8 OT- IP Objective Assessments Start: 07/07/20 11:53 Freq: Status: Active Protocol: Document 07/07/20 10:55 [facility] (Rec: 07/07/20 12:45 [facility] [id number]) OT Gross Range of Motion Upper Extremity Range of Motion Assessment Bilaterally Impaired ROM Impairments BUE shoulder flexion 0-100. OT Strength Comments Strength Comments 4-/5 to 4/5 from proximal to distal OT- Coordination Assessment Comments Coordination Comments Initially off right hand ( 1inch ) and left hand 9 (.5 inches)and then able to touch the tip on his nose. OT-Muscle Tone Assessment Muscle Tone WNL Yes OT Sensation Assessment Comments Summary Comments Intact for light touch. 2/10 Pt not realizing that his right arm was underneath him to get out during bed mobility needs. Pt also forgetting to let go of the bed rail during bed mobility needs. M9 OT- IP Assessment and Plan Start: 07/07/20 11:53 Freq: Status: Active Protocol: Document 07/08/20 12:25 [facility] (Rec: 07/08/20 12:36 [facility] [id number]) OT Summary Assessment and Plan Potential Rehabilitation Potential Good Analytic Complexity at Evaluation Moderate Summary OT Impairments Range of Motion,Strength, Balance,Coordination, Functional Cognition, Functional Mobility,Grooming, Dressing,Toileting,Bathing, Toilet Transfers,Shower Transfers,Activity Tolerance Progress Towards Goals Slow Progress due to Cognition Assessment Summary Pt able to tolerate a shower today and continues to need MAX vc to help sequence through task for safety and completeness. Pt will benefit from skilled rehab prior to going home. Goals Grooming Goal Standby Assistance Dressing Goal Standby Assistance Toileting Goal Standby Assistance Bathing Goal Standby Assistance Toilet Transfer Goal Standby Assistance Shower Transfer Goal Standby Assistance Days to Meet Goals 14 Frequency of Treatment Frequency Of Treatment Once a Day Treatment Plan OT Treatment Plan ADL Training,Functional Cognition Training,Functional Mobility,Patient/Family Education,Discharge Planning Discharge Recommendations OT Discharge Recommendations SNF Rehab Home Equipment Needs defer to SNF
[2020-07-08] MEDS: FUROSEMIDE 20 MG/2 ML VIAL IV (15:14)
--- NOTE | 2020-07-08 15:22 | PM.PN.1 ---
Subjective Subjective Date Patient Seen: 07/08/20 Interval history: Dandre Choi is a 75 year old male with PMH of Alcoholism, ischemic cardiomyopathy (s/p JAMES to mLAD 07/2016 EF as low at 10-15% improved to normal in 2018), persistent atrial fibrillation, memory impairment who was BIBEMS for 3 weeks of continued weakness, lethargy, poor appetite, and diarrhea. 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 He was found to be profoundly anemic and malnourished. Last night he had worsening hypotension and tachycardia associated with atrial fibrillation. He was transferred to ICU and provided total of 5 L IV fluids with BP this morning around 100 systolic. He was also started on amiodarone drip with improvement of rate control. He had chest, abdomen and pelvis CT today for evaluation of weight loss and anemia. He has mildly enlarged right mediastinal, right hilar and retroperitoneal lymph nodes. There is concentric thickening at the GE junction. He has extensive osseous metastases. He has mild right hydronephrosis and hydroureter secondary to a 2 mm obstructing stone at right UVJ. Also noted are moderate bilateral pleural effusions, small amount of peritoneal fluid, and diffuse body wall edema likely related to the IV fluids. Exam Vital Signs (past 8 hours): - 07/08/20 08:00 07/08/20 09:00 07/08/20 09:30 Temperature 97.8 F Pulse Rate 95 H 103 H 101 H Respiratory Rate 19 18 23 Blood Pressure 99/65 98/69 101/75 Pulse Oximetry 98 100 100 07/08/20 12:00 Temperature 97.0 F L Pulse Rate 60 Respiratory Rate 16 Blood Pressure 115/70 Pulse Oximetry 94 Oxygen Delivery Method Room Air Oxygen Flow Rate 0 Narrative Exam Narrative: General: He is alert and pleasant malnourished appearing male in no acute distress Lungs: Clear to auscultation Heart: Irregularly irregular Abdomen: Soft, nontender, no abdominal mass Extremities: No edema Neurological: Affect normal, appears well oriented, nonfocal Objective Labs Result Diagrams: 07/08/20 04:38 07/08/20 04:38 Labs: Laboratory Results - last 24 hr 07/07/20 07/07/20 07/07/20 20:54 21:15 22:08 WBC 6.4 RBC 2.74 L Hgb 7.6 L Hct 24.1 L MCV 88.0 MCH 27.8 MCHC 31.6 RDW 20.0 H Plt Count 125 L Neut % (Auto) Not Reportable Lymph % (Auto) Not Reportable [place] % (Auto) Not Reportable Eos % (Auto) Not Reportable Baso % (Auto) Not Reportable Lymph # (Auto) Not Reportable [place] # (Auto) Not Reportable Baso # (Auto) Not Reportable Total Counted 100 Seg Neutrophils % 61.0 Band Neutrophils % 4.0 Lymphocytes % (Manual) 26.0 Monocytes % (Manual) 9.0 Eosinophils % (Manual) Metamyelocytes % Neutrophils # (Manual) 4160 Nucleated RBCs 2 H RBC Morphology See below Poikilocytosis Anisocytosis 2+ H PT INR Sodium 135 L Potassium 3.5 Chloride 101 Carbon Dioxide 33 H BUN 17 Creatinine 0.59 L Estimated GFR > 60.0 BUN/Creatinine Ratio 28.8 H Glucose 127 H Calcium 7.4 L Magnesium 2.1 Total Bilirubin Conjugated Bilirubin Unconjugated Bilirubin AST ALT Alkaline Phosphatase Total Protein Albumin Globulin Albumin/Globulin Ratio Cortisol AM Sample Nasal Screen MRSA (PCR) Negative for mrsa 07/08/20 07/08/20 07/08/20 04:38 04:38 04:38 WBC 6.4 RBC 2.57 L Hgb 7.2 L Hct 22.4 L MCV 87.3 MCH 28.0 MCHC 32.0 RDW 20.1 H Plt Count 113 L Neut % (Auto) Not Reportable Lymph % (Auto) Not Reportable [place] % (Auto) Not Reportable Eos % (Auto) Not Reportable Baso % (Auto) Not Reportable Lymph # (Auto) Not Reportable [place] # (Auto) Not Reportable Baso # (Auto) Not Reportable Total Counted 100 Seg Neutrophils % 53.0 Band Neutrophils % 4.0 Lymphocytes % (Manual) 33.0 Monocytes % (Manual) 8.0 Eosinophils % (Manual) 1.0 L Metamyelocytes % 1.0 H Neutrophils # (Manual) 3648 Nucleated RBCs RBC Morphology See below Poikilocytosis 1+ H Anisocytosis 2+ H PT 26.0 H D INR 2.3 H Sodium 133 L Potassium 3.3 L Chloride 105 Carbon Dioxide 28 BUN 12 Creatinine 0.45 L Estimated GFR > 60.0 BUN/Creatinine Ratio 26.7 H Glucose 117 H Calcium 7.4 L Magnesium 1.9 Total Bilirubin 0.3 Conjugated Bilirubin 0.0 Unconjugated Bilirubin 0.3 AST 23 ALT 7 Alkaline Phosphatase 1254 H Total Protein 5.0 L Albumin 2.3 L Globulin 2.7 Albumin/Globulin Ratio 0.9 L Cortisol AM Sample Nasal Screen MRSA (PCR) 07/08/20 04:38 WBC RBC Hgb Hct MCV MCH MCHC RDW Plt Count Neut % (Auto) Lymph % (Auto) [place] % (Auto) Eos % (Auto) Baso % (Auto) Lymph # (Auto) [place] # (Auto) Baso # (Auto) Total Counted Seg Neutrophils % Band Neutrophils % Lymphocytes % (Manual) Monocytes % (Manual) Eosinophils % (Manual) Metamyelocytes % Neutrophils # (Manual) Nucleated RBCs RBC Morphology Poikilocytosis Anisocytosis PT INR Sodium Potassium Chloride Carbon Dioxide BUN Creatinine Estimated GFR BUN/Creatinine Ratio Glucose Calcium Magnesium Total Bilirubin Conjugated Bilirubin Unconjugated Bilirubin AST ALT Alkaline Phosphatase Total Protein Albumin Globulin Albumin/Globulin Ratio Cortisol AM Sample 15.6 Nasal Screen MRSA (PCR) [facility] Medical History (Updated 07/06/20 @ 18:34 by Rajinder Rao DO) Alcoholism Atrial fibrillation CAD (coronary artery disease) Ischemic cardiomyopathy Persistent atrial fibrillation Prostate cancer Surgical History (Updated 07/06/20 @ 18:34 by Rajinder Rao DO) History of prostatectomy Family History (Updated 07/06/20 @ 18:33 by Rajinder Rao DO) Father CAD (coronary artery disease) Social History household members: family lives independently: Yes Smoking Status: Former smoker alcohol intake: former Assessment & Plan Assessment & Plan narrative: Patient is 75-year-old male Catholic with previous history of alcoholism, chronic atrial fibrillation, ischemic cardiomyopathy presents with weakness, lethargy poor appetite and noted to be severely anemic and malnourished. 1. Severe anemia of malignancy -hemoglobin 8.7 on admission, decreased to 7.2 after IV fluids, normal iron indices and B12 -CT scan showed diffuse osseous metastases, mildly enlarged mediastinal, hilar and retroperitoneal lymph nodes -elevated alkaline phosphatase consistent with bone Mets, normal creatinine and calcium -check PSA, serum immunoelectrophoresis, serum light chain assay -outpatient Oncology follow-up -patient is Tenriism and declined transfusion 2. Acute on chronic severe protein calorie malnutrition -patient with poor appetite, greater than 10% unintentional weight loss in past 3 weeks, BMI 18.9 -weight loss is likely malignancy related based on CT finding -a.m. cortisol level 15.6 makes adrenal insufficiency unlikely, normal TSH -follow dietitian recommendations 3. Chronic/persistent atrial fibrillation with RVR -metoprolol succinate held due to hypotension -patient bolused with amiodarone and started amiodarone drip -start sotalol 80 mg b.i.d., discontinued amiodarone drip -QTC 454, daily EKG to monitor QT 4. History of ischemic cardiomyopathy -prior EF of 10-15% secondary to EtOH and ischemia (stent to mLAD in 07/2016) which improved to normal on TTE 2017 per cardiac records. -Repeat TTE with normal EF, no significant valvular pathology. -continue xarelto for now as no signs or symptoms of bleeding. -continue atorvastatin 40 mg HS 5. history of alcoholism in remission. - no reported drinking since 2015 per patient and family. 6. Hypokalemia on admission, persistent -patient with reported diarrhea at home although has not been an issue in hospital -received additional potassium replacement 07/08 -check BMP in a.m. 7. Acute hypotension -this is likely acute on more chronic related to patient's weight loss and antihypertensive medications and relative dehydration -received 5 L fluid resuscitation evening of 07/07-07/08 and subsequently appears volume overloaded with pleural effusions and body wall edema on CT -Lasix 20 mg IV x1 on 07/08 -as noted a.m. cortisol was normal at 15.6 -permanently discontinue lisinopril and metoprolol 8. Generalized weakness secondary to weight loss and malnutrition -MRI negative for acute CVA -PT/OT consult Patient needs a couple more days in hospital to monitor on Xarelto. Likely discharge home versus SNF rehab. DVT prophylaxis: On Xarelto Code status: Full code
[2020-07-08 16:24] LABS: Prostate Specific Antigen 306 ng/mL (0.10-4.00)
[2020-07-08] MEDS: ATORVASTATIN 20 MG TABLET 40 MG PO (21:12)
[2020-07-08] MEDS: LATANOPROST 0.005% OPHTH 2.5 ML 1 DROPS EYE-BOTH (21:21)
[2020-07-09] VITALS (34 sets, daily range): BP systolic 63–109; BP diastolic 26–74; PULSE 88–126; RESP 10–28; TEMP 36.1–37.3; O2SAT 91–98
[2020-07-09] MEDS: LACTATED RINGERS 1,000 ML 60 ML IV (00:10)
--- NOTE | 2020-07-09 00:16 | PC.NURSE ---
Addendum entered by Mirta Wellington R.N. 07/09/20 01:27: Remains hypotensive with LR @ 60 mL/hour infusing. Last / (60. Hospitalist updated - no new orders received. Original Note: Patient hypotensive 72/53 MAP 58 - unchanged after reposition and new cuff placement. HR 90's-115. Ofelia CALIX notified and updated on patient status. Orders for maintenance IVF LR @ 60 mL/hour received and initiated. Patient reports feeling tired. Denies pain. Questions about his CT scan results - deferred to Dr. Benitez to discuss findings in the AM with the patient and his brother
[2020-07-09 05:12] LABS: INR 2.8 (0.9-1.3); Prothrombin Time 31.7 SECONDS (10.1-12.7)
[2020-07-09 05:15] LABS: Hematocrit 22.4 % (41-53); Hemoglobin 7.2 g/dL (13.5-17.5); Mean Corpuscular HGB Conc 32.2 % (30-36); Mean Corpuscular Hemoglobin 27.9 PG (26-34); Mean Corpuscular Volume 86.7 fL (80-100); Platelet Count 117 X10^3/uL (150-400); Red Blood Cell Count 2.59 X10^6/uL (4.5-5.9); White Blood Cell Count 6.1 X10^3/uL (4.5-11.0)
[2020-07-09 05:17] LABS: Alanine Aminotransferase 7 IU/L (<50); Albumin 2.3 g/dL (3.5-5.0); Albumin Globulin Ratio 0.9 (1.0-2.8); Alkaline Phosphatase 1231 U/L (38-126); Aspartate Aminotransferase 23 IU/L (17-59); BUN Creatinine Ratio 17.9 (6-22); Bilirubin Total 0.5 mg/dL (0.2-1.3); Bilirubin Unconjugated 0.5 mg/dL (0.0-1.1); Blood Urea Nitrogen 10 mg/dL (9-20); Calcium 7.2 mg/dL (8.4-10.2); Carbon Dioxide 30 mmol/L (22-32); Chloride 103 mmol/L (98-107); Estimated Glomerular Filt Rate > 60.0 mL/min (>60); Globulin 2.7 g/dL (1.7-4.1); Glucose 101 mg/dL (80-110); HEMOLYSIS < 15 (0-50); Magnesium 1.9 mg/dL (1.6-2.3); Potassium 3.3 mmol/L (3.4-5.1); Sodium 134 mmol/L (137-145)
[2020-07-09 06:03] LABS: Add Manual Diff / Slide Review YES
[2020-07-09 06:22] LABS: Anisocytosis 2+; Neutrophils Absolute Manual 4209 /uL (3000-5900); Nucleated Red Blood Cells 1 #/Diff; Total Cells Counted 100
[2020-07-09] MEDS: TIMOLOL 0.5% OPHTH 1 DROPS EYE-BOTH ×2 (08:35→20:01)
[2020-07-09] MEDS: RIVAROXABAN 10 MG TABLET 20 MG PO (08:35)
[2020-07-09] MEDS: SOTALOL 80 MG TABLET PO (08:35)
[2020-07-09] MEDS: SODIUM CHLORIDE 0.9% FLUSH 10 ML IV ×2 (08:36→20:01)
[2020-07-09] MEDS: AMIODARONE 150 MG/100 ML PIGGYBACK 600 MG IV (10:28)
[2020-07-09] MEDS: AMIODARONE 360 MG/200 ML PIGGYBACK 33.33 MG IV (10:29)
[2020-07-09 11:03] LABS: Reticulocyte Count, Percent 1.9 % (0.87-2.60)
--- NOTE | 2020-07-09 11:56 | OT.IP.TRT ---
Current Diagnoses Cerebral infarction, unspecified (07/07/20) Occupational Therapy Treatment Note M2 OT-IP Current Condition Start: 07/07/20 11:53 Freq: Status: Active Protocol: Document 07/07/20 10:55 [facility] (Rec: 07/07/20 12:45 [facility] [id number]) Occupational Therapy Current Condition Current Condition Evaluation Date 07/07/20 Treatment Diagnosis Subacute CVA remote left occipital lobe infartion, decreased STM and mobility Diagnosis Onset Date 07/06/20 M3 OT- IP Subjective and Pain Start: 07/07/20 11:53 Freq: Status: Active Protocol: Document 07/09/20 12:38 [facility] (Rec: 07/09/20 12:47 [facility] [id number]) OT- Subjective Occupational Therapy Visit Type Type Treatment Note Visit Start Time 11:36 Visit Stop Time 11:56 Total Visit Minutes 20 Occupational Therapy Visit Comments Patient Comments Pt states too tired to get up but willing to talk to therapist along with his brother regarding disposition needs. Patient/Caregiver Goals Pt now wanting to go home. M6 OT- IP Functional Cognition Start: 07/07/20 11:53 Freq: Status: Active Protocol: Document 07/09/20 12:38 [facility] (Rec: 07/09/20 12:47 [facility] [id number]) Cognitive Factors Limiting Selfcare Function Cognitive Ability Level of Alertness Alert Patient Orientation Name,Place,Situation Attention Span Ability Capable of Focused Attention, Capable of Sustained Attention Ability to Follow Commands Able to Follow One Step Commands with Increased Time, Able to Follow One Step Commands with Repetition Memory Description Short Term Impaired,Working Impaired Problem Solving Ability Needs Assist to Identify Solutions Cognitive Comments Cognitive Assessment Comments Pt able to play his guitar and able to tune it and play a couple songs. Pt's HR in a-fib at times and O2 inconsistent from 78-96%, nursing notified. Pt at times not able to coordinate his fingers to play the right chords at times. Pt states that he would rather go home versus go to skilled rehab at this time to be able to play music and be with his dogs. Start: 07/07/20 11:53 Freq: Status: Active Protocol: Document 07/07/20 10:55 [facility] (Rec: 07/07/20 12:45 [facility] [id number]) OT Gross Range of Motion Upper Extremity Range of Motion Assessment Bilaterally Impaired ROM Impairments BUE shoulder flexion 0-100. OT Strength Comments Strength Comments 4-/5 to 4/5 from proximal to distal OT- Coordination Assessment Comments Coordination Comments Initially off right hand ( 1inch ) and left hand 9 (.5 inches)and then able to touch the tip on his nose. OT-Muscle Tone Assessment Muscle Tone WNL Yes OT Sensation Assessment Comments Summary Comments Intact for light touch. M9 OT- IP Assessment and Plan Start: 07/07/20 11:53 Freq: Status: Active Protocol: Document 07/09/20 12:38 [facility] (Rec: 07/09/20 12:47 [facility] [id number]) OT Summary Assessment and Plan Potential Rehabilitation Potential Good Analytic Complexity at Evaluation Moderate Summary OT Impairments Range of Motion,Strength, Balance,Coordination, Functional Cognition, Functional Mobility,Grooming, Dressing,Toileting,Bathing, Toilet Transfers,Shower Transfers,Activity Tolerance Progress Towards Goals Slow Progress due to Cognition Assessment Summary Pt now wanting to go home versus skilled rehab. Pt will benefit from getting a FWW, BSC, and possible a hospital bed. Pt would also benefit from getting home health. Goals Grooming Goal Standby Assistance Dressing Goal Standby Assistance Toileting Goal Standby Assistance Bathing Goal Standby Assistance Toilet Transfer Goal Standby Assistance Shower Transfer Goal Standby Assistance Days to Meet Goals 13 Frequency of Treatment Frequency Of Treatment Once a Day Treatment Plan OT Treatment Plan ADL Training,Functional Cognition Training,Functional Mobility,Patient/Family Education,Discharge Planning Discharge Recommendations OT Discharge Recommendations Home with Assistance,Home Health Transportation Needs at Discharge Private Vehicle
[2020-07-09] MEDS: BICALUTAMIDE 50 MG TABLET PO (12:36)
[2020-07-09] MEDS: MIDODRINE HCL 5 MG TABLET PO ×2 (12:37→18:21)
--- NOTE | 2020-07-09 13:59 | PT-IP ANOTE ---
pt refused PT. pt stated that he is tired and just want to have a nap. brother in room with pt. pt's brother stated that the doctor just informed pt that he has bone cancer and just had awhole lot of things going on and maybe better to have pt rest. pt agreed for PT to check again tomorrow. pt's brother confirmed that family can be with pt 19/12 to assist him and that they will also have HHPT.
--- NOTE | 2020-07-09 14:41 | PC.NURSE ---
Pt has had some ongoing hematuria since previous traumatic christianson attempt, per report. Pt has been incontinent x2 with reddish-pink urine noted to brief. Pt requested OOB to BSC at 1400. Was noted to have some blood to brief as well as 75ML of bright red blood in BSC. Pt continued to have some dribbling of blood from urethra upon standing. Provided gurpreet care and brief change. Assisted back to bed. BP 104/[address] Benitez notified via phone. Per , plan to stop xarelto.
--- NOTE | 2020-07-09 15:08 | P.PN_ITS ---
Subjective Subjective Date Patient Seen: 07/09/20 Interval history: Patient is 75-year-old male Taoist with previous history of alcoholism, chronic atrial fibrillation, ischemic cardiomyopathy presents with weakness, lethargy poor appetite and noted to be severely anemic and malnourished. CT scans showed diffuse osseous metastases which is likely due to prostate CA. Patient does not seem to have significant bone pain associated with metastases. We have also had great difficulty controlling his heart rate with atrial fibrillation as well as keeping up his blood pressures. Additionally he had small amount of hematuria this morning and again this afternoon. Exam Vital Signs (past 8 hours): - 07/09/20 08:00 07/09/20 08:30 07/09/20 10:34 Temperature 99.2 F Pulse Rate 126 H 116 H Respiratory Rate 18 20 Blood Pressure 79/51 L 89/57 L 101/64 Pulse Oximetry 97 96 07/09/20 12:43 07/09/20 13:00 07/09/20 14:00 Temperature 97.6 F Pulse Rate 112 H 107 H 102 H Respiratory Rate 19 22 21 Blood Pressure 96/60 80/58 L 104/70 Pulse Oximetry 96 95 Oxygen Delivery Method Room Air Oxygen Flow Rate 0 Narrative Exam Narrative: General: Alert and conversant though does seem to have some tendency to perseverate and repeat things Objective Labs Result Diagrams: 07/09/20 04:39 07/09/20 04:39 Labs: Laboratory Results - last 24 hr 07/08/20 07/09/20 07/09/20 15:00 04:39 04:39 WBC 6.1 RBC 2.59 L Hgb 7.2 L Hct 22.4 L MCV 86.7 MCH 27.9 MCHC 32.2 RDW 20.0 H Plt Count 117 L Neut % (Auto) Not Reportable Lymph % (Auto) Not Reportable [place] % (Auto) Not Reportable Eos % (Auto) Not Reportable Baso % (Auto) Not Reportable Lymph # (Auto) Not Reportable [place] # (Auto) Not Reportable Baso # (Auto) Not Reportable Total Counted 100 Seg Neutrophils % 67.0 Band Neutrophils % 2.0 L Lymphocytes % (Manual) 23.0 L Monocytes % (Manual) 7.0 Eosinophils % (Manual) 1.0 L Neutrophils # (Manual) 4209 Nucleated RBCs 1 H RBC Morphology See below Anisocytosis 2+ H Percent Retic PT 31.7 H D INR 2.8 H Sodium Potassium Chloride Carbon Dioxide BUN Creatinine Estimated GFR BUN/Creatinine Ratio Glucose Calcium Magnesium Total Bilirubin Conjugated Bilirubin Unconjugated Bilirubin AST ALT Alkaline Phosphatase Total Protein Albumin Globulin Albumin/Globulin Ratio Prostate Specific Ag 306 H 07/09/20 07/09/20 04:39 04:39 WBC RBC Hgb Hct MCV MCH MCHC RDW Plt Count Neut % (Auto) Lymph % (Auto) [place] % (Auto) Eos % (Auto) Baso % (Auto) Lymph # (Auto) [place] # (Auto) Baso # (Auto) Total Counted Seg Neutrophils % Band Neutrophils % Lymphocytes % (Manual) Monocytes % (Manual) Eosinophils % (Manual) Neutrophils # (Manual) Nucleated RBCs RBC Morphology Anisocytosis Percent Retic 1.9 PT INR Sodium 134 L Potassium 3.3 L Chloride 103 Carbon Dioxide 30 BUN 10 Creatinine 0.56 L Estimated GFR > 60.0 BUN/Creatinine Ratio 17.9 Glucose 101 Calcium 7.2 L Magnesium 1.9 Total Bilirubin 0.5 Conjugated Bilirubin 0.0 Unconjugated Bilirubin 0.5 AST 23 ALT 7 Alkaline Phosphatase 1231 H Total Protein 5.0 L Albumin 2.3 L Globulin 2.7 Albumin/Globulin Ratio 0.9 L Prostate Specific Ag [facility] Medical History (Updated 07/06/20 @ 18:34 by Rajinder Rao DO) Alcoholism Atrial fibrillation CAD (coronary artery disease) Ischemic cardiomyopathy Persistent atrial fibrillation Prostate cancer Surgical History (Updated 07/06/20 @ 18:34 by Rajinder Rao DO) History of prostatectomy Family History (Updated 07/06/20 @ 18:33 by Rajinder Rao DO) Father CAD (coronary artery disease) Social History household members: family lives independently: Yes Smoking Status: Former smoker alcohol intake: former Assessment & Plan Assessment & Plan narrative: Patient is 75-year-old male Taoist with previous history of alcoholism, chronic atrial fibrillation, ischemic cardiomyopathy presents with weakness, lethargy poor appetite and noted to be severely anemic and malnourished. 1. Severe anemia likely due to metastatic prostate cancer -hemoglobin 8.7 on admission, decreased to 7.2 after IV fluids, normal iron indices and B12, normal reticulocyte count -CT scan showed diffuse osseous metastases, as well as mildly enlarged medias tinal, hilar and retroperitoneal lymph nodes -elevated alkaline phosphatase consistent with bone Mets, normal creatinine and calcium -patient is Oriental orthodox and declined transfusion 2. Metastatic prostate cancer -patient has markedly elevated PSA 306 -patient states he had prostatectomy about 10 years ago for localized prostate CA, surgery was done locally, and we are attempting to obtain records -discussed findings of with Dr Ng who recommends initiation of either degarelix if available or Casodex, degarelix not on inpatient formulary and therefore patient was started on Casodex 50 mg daily -in regards to anemia there isn't much to do acutely other than transfusion which patient declines -patient will continue on Casodex upon discharge and follow-up with Oncology 2. Acute on chronic severe protein calorie malnutrition -patient with poor appetite, greater than 10% unintentional weight loss in past 3 weeks, approximately 30 lb weight loss in past year, BMI 18.9 -weight loss is likely malignancy related based on CT finding -a.m. cortisol level 15.6, normal TSH -follow dietitian recommendations 3. Chronic/persistent atrial fibrillation with RVR -patient has atrial fibrillation with uncontrolled VR due to hypermetabolic state from anemia -reviewed case with Dr. Hughes who recommended patient put back on amiodarone drip for 24 hours and started on amiodarone tablets, 400 mg b.i.d. x1 week, 200 mg b.i.d. x1 week, then 200 mg once daily -metoprolol succinate held due to hypotension -Xarelto discontinued 07/09 due to fact that major bleed could be fatal for patient since he declines transfusions, also having mild hematuria after attempted urinary catheterization -initiate low-dose aspirin in a few days if no evidence of active bleed 4. Refractory hypotension -patient remains hypotensive with blood pressure in the 80s to 100 systolic in spite of aggressive volume resuscitation -this is likely due to affects of severe weight loss and reduced blood volume from anemia -started on midodrine 5 mg t.i.d. to help support blood pressure -discontinued lisinopril and metoprolol home medications 5. History of ischemic cardiomyopathy -prior EF of 10-15% secondary to EtOH and ischemia (stent to mLAD in 07/2016) which improved to normal on TTE 2017 per cardiac records. -Repeat TTE with normal EF, no significant valvular pathology. -continue atorvastatin 40 mg HS 6. history of alcoholism in remission. - no reported drinking since 2016 per patient and family. 7. Hypokalemia on admission, persistent -patient with reported diarrhea at home although has not been an issue in hospital -received additional potassium replacement 07/08 and -check BMP in a.m. 8. Generalized weakness secondary to weight loss and malnutrition -MRI negative for acute CVA -PT/OT consult 9. Hematuria -this occurred on 07/09 after attempted urinary catheterization (for patient com fort after IV Lasix), it is not cause of his severe anemia -Xarelto discontinued -continue to monitor DVT prophylaxis: SCDs Code status: Full code Surrogate decision maker: Brother Amari
--- NOTE | 2020-07-09 15:33 | CM.DPNOTE ---
DCP Cont Asked Dr Benitez- Is patient approp. for Palliative Care? Dr Benitez feels this referral would be premature, patient needs to f/u with Oncology. According to therapy team, patient considering returning home w/brother, not SNF, r/o need for HH ? Following, will review DCP w/patient and family JW
[2020-07-09] MEDS: POTASSIUM CHLORIDE 20 MEQ TAB 40 MEQ PO (16:04)
[2020-07-09] MEDS: AMIODARONE 541 MG/300.56 ML PIGGYBACK 16.7 MG IV (16:09)
--- NOTE | 2020-07-09 17:10 | PC.NURSE ---
Evening Shift: Pt checked on and assessed. Pt with neuro intact to baseline. No neuro deficits noted. Skin intact, dry flaky skin on BLE. Pt on RA, SPO2 95%. Lungs CTA. Denies SOB. Pt remains mildly hypotensive, receiving midodrine PO. Received on amiodarone gtts, initially at 33 ml/hr, now at 16.7 ml/hr. Pt remains in a-fib, HR 90s-100 at rest. Denies CP or pressure. Pt with poor appetite, denies nausea. Hypoactive BTs in all quadrants. Pt has not voided yet this shift. Pt is both continent and incontinent. Small amount of blood noted in brief, MD aware, Xarelto held per MD order. Does not appear to be actively bleeding at this time. Pt is cachectic and has generalized weakness in all extremities. Call light at bedside and within reach. Pt instructed to call with needs. Will continue to monitor, notify MD with changes.
[2020-07-09] MEDS: AMIODARONE 200 MG TABLET 400 MG PO (18:18)
[2020-07-09] MEDS: LATANOPROST 0.005% OPHTH 2.5 ML 1 DROPS EYE-BOTH (20:01)
[2020-07-09] MEDS: ATORVASTATIN 20 MG TABLET 40 MG PO (20:01)
[2020-07-10] VITALS (18 sets, daily range): BP systolic 87–117; BP diastolic 60–73; PULSE 85–105; RESP 11–21; TEMP 36.3–36.9; O2SAT 82–98
--- NOTE | 2020-07-10 00:21 | PC.NURSE ---
Addendum entered by Nuha Kaminski R.N. 07/10/20 06:11: FIFI Jose made aware of patients increase in weight from 53 to 59.5 Kg. Scale re-zeroed and re-weighed to verify weight. Pt's lungs clear with diminished bases. When patient is awake O2 sats 94-100% on RA. Pt noted to desat during sleep with sats to low 80s for few seconds. Sats return to mid to high 90's within a few seconds. FIFI Jose made aware. Discussed patients lung sounds and variation in sats. Discussed patients HR variablity from 78-100 and remains in AFib. Discussed Current BP 101/74 with a MAP of 84. No new orders received. Original Note: Pt awake and denies all pain. Amiodarone infusing at 16.7mg/hr. FIFI Jose notified of BP 87/64 (71). Remains in Afib rate 85-100. Discussed MAP of 71. Will continue to monitor MAP with Amiodarone at current rate per FIFI Mendez. Pt repositioned and assessment completed. Pt encouraged to call staff for any needs or questions. Pt agreeable.
[2020-07-10] MEDS: AMIODARONE 180 MG/100 ML PIGGYBACK 16.7 MG IV (03:58)
[2020-07-10 05:18] LABS: BUN Creatinine Ratio 16.4 (6-22); Blood Urea Nitrogen 10 mg/dL (9-20); Calcium 7.4 mg/dL (8.4-10.2); Carbon Dioxide 29 mmol/L (22-32); Chloride 104 mmol/L (98-107); Estimated Glomerular Filt Rate > 60.0 mL/min (>60); Glucose 109 mg/dL (80-110); HEMOLYSIS < 15 (0-50); Hematocrit 22.6 % (41-53); Hemoglobin 7.3 g/dL (13.5-17.5); Mean Corpuscular HGB Conc 32.1 % (30-36); Mean Corpuscular Hemoglobin 27.8 PG (26-34); Mean Corpuscular Volume 86.6 fL (80-100); Platelet Count 129 X10^3/uL (150-400); Potassium 3.4 mmol/L (3.4-5.1); Red Blood Cell Count 2.61 X10^6/uL (4.5-5.9); Red Cell Distribution Width 20.8 % (11.6-14.8); Sodium 133 mmol/L (137-145); White Blood Cell Count 5.8 X10^3/uL (4.5-11.0)
[2020-07-10 05:20] LABS: Add Manual Diff / Slide Review YES
[2020-07-10] MEDS: MIDODRINE HCL 5 MG TABLET PO ×3 (06:29→17:39)
[2020-07-10 06:58] LABS: Neutrophils Absolute Manual 3538 /uL (3000-5900); Total Cells Counted 100
[2020-07-10 06:59] LABS: Nucleated Red Blood Cells 1 #/Diff
[2020-07-10 07:00] LABS: Anisocytosis 3+; Ovalocytes 1+; Schistocytes 1+
[2020-07-10] MEDS: SODIUM CHLORIDE 0.9% FLUSH 10 ML IV ×2 (08:44→16:52)
[2020-07-10] MEDS: POTASSIUM CHLORIDE 20 MEQ TAB 40 MEQ PO (08:44)
[2020-07-10] MEDS: AMIODARONE 200 MG TABLET 400 MG PO ×2 (08:44→16:50)
[2020-07-10] MEDS: BICALUTAMIDE 50 MG TABLET PO (08:44)
[2020-07-10] MEDS: TIMOLOL 0.5% OPHTH 1 DROPS EYE-BOTH ×2 (08:44→20:26)
[2020-07-10 09:07] LABS: Immunoglobulin A, Serum 67 mg/dL (61-437); Immunoglobulin G,Serum 1078 mg/dL (603-1613); Immunoglobulin M, Serum 47 mg/dL (15-143)
--- NOTE | 2020-07-10 10:46 | DIET.PN ---
Dietary Progress Note Pt found to have metastatic prostate cancer c mets to bone. Pts POs 25-50%, sending Ensure Enlive bid to support nutrition status secondary to taste changes providing 57% protein and 40% caloric needs as well as vitamin and mineral repletion in addition to meal trays. BUSINESS INTELLIGENCE ADMINISTRATOR alerted pts weight today +6kg, per nursing note, lung bases clear. HT: 167.6cm WT: 53kg UBW: 59kg with healthy adult weight previously 77kg BMI: 18.9 (severe for age) Labs: Hgb 7.8 L, K+ 3.0 L, Cr 0.57 L, A1c 6.9 H, WBC 6.3 WNL, TP 5.6 L, alb 2.7 L, alk phos 1441 H, B12 961 H MNA: 9 @ risk for malnutrition Jered: 19 Nutrition Diagnosis: Ongoing Severe Acute on Chronic PCM r/t taste changes, weakness, and acute GI sx aeb 10.2% unintentional weight loss in 3w, pt reports severely reduced intake (<25% EER) secondary to food tasting like it is covered in chemicals, persistent diarrhea x3w, NFPE showing global moderate fat and muscle losses with visible prominent bony landmarks of shoulder, wrist, and knee joints, loose skin indicating rapid weight loss, pt using grab bar to sit up in home and reliant on arms to reposition his legs in bed. Interventions: 1. Providing d/c reccs to continue ONS tid at home to support nutrient needs providing 85% protein and 60% kcal needs in addition to other oral intake. Paperwork delivered to red folder. Diet Order: HH EER: 70g PRO (1.3g/kg per PCM), 1800 kcals (35kcal/kg per PCM)
--- NOTE | 2020-07-10 11:13 | PT-IP ANOTE ---
checked with nurse and stated that pt is on his IV and will be better if seen after IV infusion is done. checked back again after ~ 1 1/2 hour and nurse stated that pt wanted to take a nap and does not want to be disturbed. will f/u later.
--- NOTE | 2020-07-10 13:32 | PT.IPTN ---
Current Diagnoses Cerebral infarction, unspecified (07/07/20) Physical Therapy Treatment Note M2 PT-IP Current Condition Start: 07/07/20 11:28 Freq: NEEDED Status: Active Protocol: Document 07/07/20 09:40 AB (Rec: 07/07/20 11:43 AB [id number]) Physical Therapy Current Condition Current Condition Evaluation Date 07/07/20 Treatment Diagnosis failure to thrive; difficulty in walking Onset Date 07/06/20 Precautions Other Precautions falls M3 PT-IP Subjective Start: 07/07/20 11:28 Freq: NEEDED Status: Active Protocol: Document 07/10/20 13:32 AB (Rec: 07/10/20 14:28 AB [id number]) Subjective Physical Therapy Visit Type Type Treatment Note Visit Start Time 13:32 Visit Stop Time 14:05 Total Visit Minutes 33 Number of DRY ROLLER Visits 0 Physical Therapy Visit Comments Patient Comments pt is agreeable to do PT; brother in room with pt M4 PT-IP Mobility and Gait Start: 07/07/20 11:28 Freq: NEEDED Status: Active Protocol: Document 07/10/20 13:32 AB (Rec: 07/10/20 14:28 AB [id number]) PT-Bed Mobility Assessment Supine to Sit Supine to Sit Minimal Assistance PT-Transfer Assessment Sit to and From Stand Sit to and from Stand Minimal Assistance,1 Person Assistance,Use of Upper Extremities Equipment Transfer Assistive Device Gait Belt,Front Wheeled Walker Orthotic/Prosthetic Devices or Brace: No Transfers Transfer Destination Toilet Transfer Technique ambulated using FWW Transfer Ability Level of Assist Contact Guard Assistance, Minimal Assistance Comments Mobility Comments caregiver training conducted. pt completed supine to sit min A and cues for techniques. educated pt's brother on how to use safety belt and how to assist pt. pt's brother was able to put safety belt on and assist pt with ambulation using FWW to the toilet. educated pt and pt's brother regarding equipement needs. pt's brother stated that he will buy a FWW. will bring FWW tomorrow for adjustment. Gait Assessment Gait Gait Assistance Required: Contact Guard Assist,Minimum Assistance,1 Person Assist Distance (Feet) 15 Able to Maintain Weight Bearing Status Yes During Gait Assistive Devices Assistive Device Gait Belt,Front Wheeled Walker Orthotic/Prosthetic Devices or Brace: No Gait Deviations General Gait Pattern Antalgic,Decreased Stride Length,Decreased Feet Clearance,Flexed Trunk,Step-to Gait Factors Limiting Gait Function Factors Limiting Gait Function Decreased Activity Tolerance, Decreased Strength,Difficulty Following Directions,Poor Balance,Poor Safety Awareness M5 PT-IP Objective Assessments Start: 07/07/20 11:28 Freq: NEEDED Status: Active Protocol: Document 07/07/20 09:40 AB (Rec: 07/07/20 11:43 AB [id number]) Orientation Orientation/Cognition Level of Alertness Alert Orientation Name,Month,Year Safety Awareness Decreased Safety Awareness Memory Description Short Term Impaired Gross Range of Motion Lower Extremity ROM Assessment Within Functional Limits Strength Lower Extremity Strength Hip 3+/5 Knee 4-/5 Muscle Tone Muscle Tone WNL Yes M6 PT-IP Treatment Start: 07/07/20 11:28 Freq: NEEDED Status: Active Protocol: Document 07/10/20 13:32 AB (Rec: 07/10/20 14:28 AB [id number]) Physical Therapy Treatment Education Education Provided Safety M7 PT-IP Assessment and Plan Start: 07/07/20 11:28 Freq: NEEDED Status: Active Protocol: Document 07/10/20 13:32 AB (Rec: 07/10/20 14:28 AB [id number]) PT Summary Assessment and Plan Potential Rehabilitation Potential Fair Summary Impairments Pain,ROM,Strength,Balance, Coordination,Sensation,Tone, Cognition,Bed Mobility, Transfers,Gait,Activity Tolerance Progress Towards Goals Slow Progress due to Medical Issues,Slow Progress due to Activity Tolerance Assessment Summary caregiver training conducted and pt's brother was able to assist pt but requires cues. pt and pt's brother agreed to do further training tomorrow. will continue to assess progress. Goals Bed Mobility Goal Independent Transfer Goal Independent,Front Wheeled Walker,Four Wheeled Walker Gait Goal Independent,Front Wheel Walker ,Four Wheel Walker Gait Distance 100 Other Goals improve ambulation using 4WW 200 ft SBA up/down 2 platform step using FWW Days to Meet Goals 10 Frequency of Treatment Frequency Of Treatment Once a Day Treatment Plan Physical Therapy Treatment Plan Bed Mobility Training,Transfer Training,Gait Training, Therapeutic Exercise,Balance Retraining,Post Op Education, Discharge Planning, Neuromuscular Re-ed Recommendations To Nursing Amount of Assist Needed 1 Person Assist Discharge Recommendations PT Discharge Recommendations Home with 24/7 Assist Available,Home Health Transportation Needs at Discharge Private Vehicle
--- NOTE | 2020-07-10 13:42 | PC.NURSE ---
Pt completed IV amiodarone infusion and is continuing on PO dosing. HR has been 100s-110s, Afib over the course of the day. BP has been low normal. Notified Dr. Benitez of HR ranges. Instruction received to continue to monitor. Pt has been asymptomatic of hypotension/tachycardia Orders received to transfer to acute care status. Supportive brother at bedside.
--- NOTE | 2020-07-10 14:44 | OT.IP.TRT ---
Current Diagnoses Cerebral infarction, unspecified (07/07/20) Occupational Therapy Treatment Note M2 OT-IP Current Condition Start: 07/07/20 11:53 Freq: Status: Active Protocol: Document 07/07/20 10:55 [facility] (Rec: 07/07/20 12:45 [facility] [id number]) Occupational Therapy Current Condition Current Condition Evaluation Date 07/07/20 Treatment Diagnosis Subacute CVA remote left occipital lobe infartion, decreased STM and mobility Diagnosis Onset Date 07/06/20 M3 OT- IP Subjective and Pain Start: 07/07/20 11:53 Freq: Status: Active Protocol: Document 07/10/20 15:22 [facility] (Rec: 07/10/20 16:10 [facility] [id number]) OT- Subjective Occupational Therapy Visit Type Type Treatment Note Visit Start Time 13:32 Visit Stop Time 14:44 Total Visit Minutes 72 Occupational Therapy Visit Comments Patient Comments Pt's brother present for caregiver training. PT also present due to pt limited activity tolerance. Patient/Caregiver Goals To go home. OT Pain Assessment Pain When Pain Assessed At Rest Pain Present Pain Present Denied Pain M4 OT- IP ADL's Start: 07/07/20 11:53 Freq: Status: Active Protocol: Document 07/10/20 15:22 [facility] (Rec: 07/10/20 16:10 [facility] [id number]) OT ADL-Dressing General Eval Lower Body Dressing Ability Maximum Assistance Comments OT Dressing Comments Pt fatigued and needing assist to nikky his socks and brief initially over his feet. OT ADL-Toileting General Evaluation Toileting Ability Moderate Assistance Areas Needing Assistance Manage Clothing,Perform Perineal Hygiene Comments OT Toileting Comments Pt's brother able to assist pt for toileting needs. OT ADL-Bathing Bathing Type Bathing Type Shower General Evaluation Bathing Ability Maximal Assistance Areas Needing Assistance Wash/Dry Back,Wash/Dry Perineal Area,Wash/Dry Lower Extremities Comments OT Bathing Comments Pt still needing reminders to help sequence through task of showering. Pt not able to recall if he rinsed his hair after washing it. Pt needing step by step vc to get through the whole task for showering. Pt's brother aware to provide pt MAX vc for all needs. M6 OT- IP Functional Cognition Start: 07/07/20 11:53 Freq: Status: Active Protocol: Document 07/10/20 15:22 [facility] (Rec: 07/10/20 16:10 [facility] [id number]) Cognitive Factors Limiting Selfcare Function Cognitive Ability Level of Alertness Alert Patient Orientation Name,Place,Situation Attention Span Ability Capable of Focused Attention, Capable of Sustained Attention Ability to Follow Commands Able to Follow One Step Commands with Increased Time, Able to Follow One Step Commands with Repetition Memory Description Short Term Impaired Problem Solving Ability Unable to Identify Errors, Needs Assist to Identify Solutions Cognitive Comments Cognitive Assessment Comments Pt still having severe short term memory issues and not able to recall what is being said in a conversation or remember what he did for showering as he would forget what he washed or what was needing to be washed. M7 OT- IP Mobility and Balance Start: 07/07/20 11:53 Freq: Status: Active Protocol: Document 07/10/20 15:22 [facility] (Rec: 07/10/20 16:10 [facility] [id number]) OT-Transfer Assessment Sit to and From Stand Sit to and from Stand Minimal Assistance Transfers Transfer Ability Contact Guard Assistance, Minimal Assistance Devices Transfer Assistive Devices Gait Belt,Front Wheeled Walker Comments Mobility Comments Pt improved with bed mobility and needing increased time and cues to be able to get up from the bed. OT- Gait Assessment Comments Gait Ability Comments Cued brother to hold onto the gait belt initially to assist for pt's balance as some days pt maybe more unsteady than other days. Pt needs assist at times to help guide the FWW as at times the FWW is too far in front of the pt. OT- Balance Assessment Sitting Balance and Reactions Static Sitting Balance Ability Good Dynamic Sitting Balance Ability Fair Standing Balance and Reactions Static Standing Balance Ability Fair M9 OT- IP Assessment and Plan Start: 07/07/20 11:53 Freq: Status: Active Protocol: Document 07/10/20 15:22 [facility] (Rec: 07/10/20 16:10 [facility] [id number]) OT Summary Assessment and Plan Potential Rehabilitation Potential Good Analytic Complexity at Evaluation Moderate Summary OT Impairments Range of Motion,Strength, Balance,Coordination, Functional Cognition, Functional Mobility,Grooming, Dressing,Toileting,Bathing, Toilet Transfers,Shower Transfers,Activity Tolerance Progress Towards Goals Slow Progress due to Cognition Assessment Summary Pt's brother able to participate in caregiver training for bed mobility, transfers, and showering needs . OT and PT also able to suggest equipment needs for the pt. Pt to go home with brother to assist when medically stable. Pt will also benefit from home health including a bath aid. Goals Grooming Goal Standby Assistance Dressing Goal Standby Assistance Toileting Goal Standby Assistance Bathing Goal Standby Assistance Toilet Transfer Goal Standby Assistance Shower Transfer Goal Standby Assistance Days to Meet Goals 12 Frequency of Treatment Frequency Of Treatment Once a Day Treatment Plan OT Treatment Plan ADL Training,Functional Cognition Training,Functional Mobility,Patient/Family Education,Discharge Planning Discharge Recommendations OT Discharge Recommendations Home with Assistance,Home Health Transportation Needs at Discharge Private Vehicle
--- NOTE | 2020-07-10 18:36 | PM.PN.1 ---
Subjective Subjective Date Patient Seen: 07/10/20 Interval history: Patient is 75-year-old male Protestant with previous history of alcoholism, chronic atrial fibrillation, ischemic cardiomyopathy presents with weakness, lethargy poor appetite and noted to be severely anemic and malnourished. CT scans showed diffuse osseous metastases which is likely due to prostate CA. Patient does not seem to have significant bone pain associated with metastases. He completed 24 hours of amiodarone drip this morning and is continued on amiodarone 400 mg p.o. b.i.d. for AFib rate control control. His heart rate is in low 100 range off the drip. Patient's blood pressures were running consistently quite low even with aggressive fluid resuscitation. Since starting on my to drain his blood pressures are generally improved and staying close to 100 systolic. He had a few episodes of hematuria since previous night which seems to be resolving and was precipitated by attempted Tristan placement. There is no evidence of significant blood loss with the hematuria. Exam Vital Signs (past 8 hours): - 07/10/20 12:54 07/10/20 16:00 Temperature 98.4 F 97.3 F L Pulse Rate 102 H 87 Respiratory Rate 19 18 Blood Pressure 94/61 117/68 Pulse Oximetry 98 97 Oxygen Delivery Method Room Air Oxygen Flow Rate 0 Narrative Exam Narrative: General: Patient is alert, cooperative and in no acute distress Objective Labs Result Diagrams: 07/10/20 04:41 07/10/20 04:41 Labs: Laboratory Results - last 24 hr 07/08/20 07/10/20 07/10/20 11:20 04:41 04:41 WBC 5.8 RBC 2.61 L Hgb 7.3 L Hct 22.6 L MCV 86.6 MCH 27.8 MCHC 32.1 RDW 20.8 H Plt Count 129 L Neut % (Auto) Not Reportable Lymph % (Auto) Not Reportable Coke % (Auto) Not Reportable Eos % (Auto) Not Reportable Baso % (Auto) Not Reportable Lymph # (Auto) Not Reportable Coke # (Auto) Not Reportable Baso # (Auto) Not Reportable Total Counted 100 Seg Neutrophils % 61.0 Lymphocytes % (Manual) 32.0 Monocytes % (Manual) 4.0 Eosinophils % (Manual) 1.0 L Myelocytes % 2.0 H Neutrophils # (Manual) 3538 Nucleated RBCs 1 H RBC Morphology See below Anisocytosis 3+ H Ovalocytes 1+ H Schistocytes 1+ H Sodium 133 L Potassium 3.4 Chloride 104 Carbon Dioxide 29 BUN 10 Creatinine 0.61 L Estimated GFR > 60.0 BUN/Creatinine Ratio 16.4 Glucose 109 Calcium 7.4 L Serum IgA 67 Serum IgG 1078 Serum IgM 47 ROSA Interpretation Comment FOR[facility], [facility] Medical History (Updated 07/06/20 @ 18:34 by Rajinder Rao DO) Alcoholism Atrial fibrillation CAD (coronary artery disease) Ischemic cardiomyopathy Persistent atrial fibrillation Prostate cancer Surgical History (Updated 07/06/20 @ 18:34 by Rajinder Rao DO) History of prostatectomy Family History (Updated 07/06/20 @ 18:33 by Rajinder Rao DO) Father CAD (coronary artery disease) Social History household members: family lives independently: Yes Smoking Status: Former smoker alcohol intake: former Assessment & Plan Assessment & Plan narrative: Patient is 75-year-old male Protestant with previous history of alcoholism, chronic atrial fibrillation, ischemic cardiomyopathy presents with weakness, lethargy poor appetite and noted to be severely anemic and malnourished. 1. Severe anemia due to metastatic prostate cancer -hemoglobin 8.7 on admission, decreased to 7.2 after IV fluids, normal iron indices and B12, normal reticulocyte count -CT scan showed diffuse osseous metastases, as well as mildly enlarged mediastinal, hilar and retroperitoneal lymph nodes -elevated alkaline phosphatase consistent with bone Mets, normal creatinine and calcium -patient is Yazidism and declined transfusion 2. Metastatic prostate cancer -patient has markedly elevated PSA 306 -he had prostatectomy at [facility] 10-15 years ago for localized prostate CA, and we have requested Urology records which are in paper and expected to take 1 week to get back -discussed findings of with Dr Ng who recommends initiation of either degarelix if available or Casodex, degarelix not on inpatient formulary and therefore patient was started on Casodex 50 mg daily -in regards to anemia there isn't much to do acutely other than transfusion which patient declines -patient will continue on Casodex upon discharge and follow-up with Oncology -he does not seem to be having bone pain related to metastases 2. Acute on chronic severe protein calorie malnutrition -patient with poor appetite, greater than 10% unintentional weight loss in past 3 weeks, approximately 30 lb weight loss in past year, BMI 18.9 -weight loss is likely malignancy related based on CT finding -a.m. cortisol level 15.6, normal TSH -follow dietitian recommendations 3. Chronic/persistent atrial fibrillation with RVR -patient has atrial fibrillation with uncontrolled VR due to hypermetabolic state from anemia -reviewed case with Dr. Hughes who recommended patient put back on amiodarone drip for 24 hours and started on amiodarone tablets, 400 mg b.i.d. x1 week, 200 mg b.i.d. x1 week, then 200 mg once daily -metoprolol succinate held due to hypotension, discontinue metoprolol on discharge -Xarelto discontinued 07/09 due to fact that major bleed could be fatal for patient since he declines transfusions, also having mild hematuria after attempted urinary catheterization 4. Refractory hypotension -patient remained hypotensive with blood pressure in the 80s to 100 systolic in spite of aggressive volume resuscitation -this is likely due to affects of severe weight loss and reduced blood volume from anemia -started on midodrine 5 mg t.i.d. with overall improvement in blood pressure readings -discontinued lisinopril and metoprolol home medications 5. History of ischemic cardiomyopathy -prior EF of 10-15% secondary to EtOH and ischemia (stent to mLAD in 07/2016) which improved to normal on TTE 2018 per cardiac records. -Repeat TTE with normal EF, no significant valvular pathology. -continue atorvastatin 40 mg HS 6. history of alcoholism in remission. - no reported drinking since 2016 per patient and family. 7. Hypokalemia on admission, persistent -patient with reported diarrhea at home although has not been an issue in hospital -has been receiving potassium replacement as needed 8. Generalized weakness secondary to weight loss and malnutrition -MRI negative for acute CVA -PT/OT consult 9. Hematuria -this occurred on 07/09-07/10 after attempted urinary catheterization (for patient comfort after IV Lasix), it is not cause of his severe anemia -Xarelto discontinued -continue to monitor 10. Possible sleep apnea -patient noted to have drop in O2 sat in 80s during sleep at night, although other times during day when sleeping his O2 sats are not dropping -consider outpatient sleep study although this is somewhat less priority in light of his other diagnoses Patient was stabilizing hospital course and hopefully can discharge tomorrow Monday home and set up appointments for outpatient Oncology and Cardiology. DVT prophylaxis: SCDs Code status: Full code Surrogate decision maker: Brother Amari
[2020-07-10] MEDS: LATANOPROST 0.005% OPHTH 2.5 ML 1 DROPS EYE-BOTH (20:26)
[2020-07-10] MEDS: ATORVASTATIN 20 MG TABLET 40 MG PO (20:26)
--- NOTE | 2020-07-10 21:45 | PC.NURSE ---
Shift note: Pt up to bathroom with 1 person assist, tolerated ambulation well. Spoke freely about diagnosis and end of life, states he has good support system and feels he will accept whatever comes. Monitor shows afib with CVR rate in the 70s and 80's. Denies pain.
[2020-07-11 04:22] VITALS: BP 100/68; PULSE 106; RESP 18; TEMP 36.2; O2SAT 98
[2020-07-11] MEDS: MIDODRINE HCL 5 MG TABLET PO ×2 (06:21→11:58)
--- NOTE | 2020-07-11 06:33 | PC.NURSE ---
[employer]ator Note-Patient has been awake most of the night, oriented x3, talkative, wandering speech, forgetful, has many questions, uses call light appropriately. A-fib/flutter CVR/RVR 90s-110. BP remains 'soft' see vital trends, says he is lightheaded while turning in bed. Denies pain, crackers given for heartburn -effective. Incontinent of small soft stool and urine.
[2020-07-11 08:00] VITALS: BP 103/64; PULSE 104; RESP 17; TEMP 36.7; O2SAT 95
[2020-07-11] MEDS: SODIUM CHLORIDE 0.9% FLUSH 10 ML IV (09:23)
[2020-07-11] MEDS: AMIODARONE 200 MG TABLET 400 MG PO (09:23)
[2020-07-11] MEDS: BICALUTAMIDE 50 MG TABLET PO (09:23)
[2020-07-11] MEDS: TIMOLOL 0.5% OPHTH 1 DROPS EYE-BOTH (09:23)
--- NOTE | 2020-07-11 11:34 | P.DS_ITS ---
History of Present Illness History of Present Illness Date Patient Seen: 07/11/20 Time Patient Seen: 09:15 Chief complaint: failure to thrive Narrative: Dandre Choi is a 75 year old male with PMH of Alcoholism, ischemic cardiomyopathy (s/p JAMES to mLAD 07/2016 EF as low at 10-15% improved to normal in 2018), persistent atrial fibrillation, memory impairment who was BIBEMS for 3 weeks of continued weakness, lethargy, poor appetite, and diarrhea. Patient denies complaints during my interview, but when pressed with family at bedside (brother) he does admit he is a bit weaker than usual. Denies numbness, tingling, abdominal pain, fever, chills. Does endorse dairrhea and frequent depends changes. his brother at bedside endorses that over the past 2-3 weeks the patient has been unable to get out of bed, and needs significant assistance to move his legs. he had been trying to get the patient to come in for an evaluation, but finally today the patient stated that he might need to get evaluated for continued weakness after his function declined even more. His brother has not noticed any decrease in sensation or unilateral weakness, but a rapid decline in function over the past few weeks and worsened more over the past few days. Denied dark or melenotic or bright red stools. Brother endorses poor appetite and patient won't eat even a single egg at breakfast along with weight loss though he cannot quantify this. He does state that the patient is relentless, however, about taking his heart medications. Patient denies shortness of breath, chest pain, orthopnea, LE edema. In the ER, patient was mildly hypotensive, but the remainder of his vital signs were unremarkable. He was started on IV fluids. Initial laboratory evaluation revealed a CBC with a normal white count, hemoglobin of 8.4, down from 13 about a year ago, with normal platelets. Patient takes Xarelto and INR is 2.0. Chemistries revealed a potassium of 2.5, CO2 of 38, creatinine of 0.62. Patient was given 60 mEq of oral and IV potassium in the ER. Patient also has a marked ly elevated alkaline phosphatase at 1507, calcium is normal, remainder of his hepatic studies are unremarkable. Ammonia was negative. CK was within normal limits. Troponin was negative. Albumin was 3.0. Procalcitonin 0.08. Salicylate, Tylenol, and alcohol levels were negative. COVID-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 MR stroke protocol is ordered. CXR is also ordered. EKG shows atrial fibrillation with a rate of 85, mild T wave inversions in V3-4 (flattened) with minimal ST deperession, although previous tracings show this as well. Discharge Providers Provider Date of admission: 07/07/20 12:06 Discharge Date: 07/11/20 Consults: 07/06/20 17:34 Consult to Occupational Therapy Evaluate & Treat Comment: Physician Instructions: Evaluate and treat Consult to Physical Therapy Evaluate & Treat Comment: Physician Instructions: Evaluate and Treat 07/06/20 18:45 Consult to Dietitian, Adult Routine Comment: Reason For Exam: protein calorie malnutrition, weight loss 07/06/20 18:55 Consult to Dietitian, Adult Routine Comment: \ Reason For Exam: weightloss/decreased appetite 07/11/20 10:45 Consult to Home Health Routine Comment: Reason For Exam: Home Health Upon DC Discharge provider: Rajnider Rao DO Summary Hospital Course Discharge Diagnosis: Please see hospital course by problem list noted below. Hospital Course: Patient is 75-year-old male [employer]ism with previous history of alcoholism, chronic atrial fibrillation, ischemic cardiomyopathy presents with weakness, lethargy poor appetite and noted to be severely anemic and malnourished, admitted for the above, found to ave likely metastatic prostate cancer. 1. Severe anemia due to metastatic prostate cancer -hemoglobin 8.7 on admission, decreased to 7.2 after IV fluids, normal iron indices and B12, normal reticulocyte count. Was stable near low 7s without symptoms during his hospital stay. -CT scan showed diffuse osseous metastases, as well as mildly enlarged mediastinal, hilar and retroperitoneal lymph nodes -elevated alkaline phosphatase consistent with bone Mets, normal creatinine and calcium. -patient is Restorationist and declined transfusion 2. Metastatic prostate cancer -patient has markedly elevated PSA 306 -he had prostatectomy at [facility] 10-15 years ago for localized prostate CA, and we have requested Urology records which are in paper and expected to take 1 week to get back -discussed findings of with Dr Ng who recommends initiation of either degarelix if available or Casodex, degarelix not on inpatient formulary and therefore patient was started on Casodex 50 mg daily -in regards to anemia there isn't much to do acutely other than transfusion which patient declines -patient will continue on Casodex upon discharge and follow-up with Oncology as an outpatient. -he does not seem to be having bone pain related to metastases 2. Acute on chronic severe protein calorie malnutrition -patient with poor appetite, greater than 10% unintentional weight loss in past 3 weeks, approximately 30 lb weight loss in past year, BMI 18.9 -weight loss is likely malignancy related based on CT finding -a.m. cortisol level 15.6, normal TSH -follow dietitian recommendations 3. Chronic/persistent atrial fibrillation with RVR -patient has atrial fibrillation with uncontrolled VR due to hypermetabolic state from anemia -reviewed case with Dr. Hughes who recommended patient put back on amiodarone drip for 24 hours and started on amiodarone tablets, 400 mg b.i.d. x1 week, 200 mg b.i.d. x1 week, then 200 mg once daily -metoprolol succinate held due to hypotension, discontinue metoprolol on discharge -Xarelto discontinued 07/09 due to fact that major bleed could be fatal for cristina hernandez since he declines transfusions, also having mild hematuria after attempted urinary catheterization 4. Refractory hypotension -patient remained hypotensive with blood pressure in the 80s to 100 systolic in spite of aggressive volume resuscitation -this is likely due to affects of severe weight loss and reduced blood volume from anemia, cortisol level above not indicative of adrenal insufficiency. -started on midodrine 5 mg t.i.d. with overall improvement in blood pressure readings -discontinued lisinopril and metoprolol home medications in favor of amiodarone for rate control. 5. History of ischemic cardiomyopathy -prior EF of 10-15% secondary to EtOH and ischemia (stent to mLAD in 07/2016) which improved to normal on TTE 2017 per cardiac records. -Repeat TTE with normal EF, no significant valvular pathology. -continue atorvastatin 40 mg HS 6. history of alcoholism in remission. - no reported drinking since 2016 per patient and family. 7. Hypokalemia on admission, persistent -patient with reported diarrhea at home although has not been an issue in hospital -has been receiving potassium replacement as needed 8. Generalized weakness secondary to weight loss and malnutrition -MRI negative for acute CVA, see above for active therapies to address underlying etiolgies. 9. Hematuria -this occurred on 07/09-07/10 after attempted urinary catheterization (for patient comfort after IV Lasix), it is not cause of his severe anemia -Xarelto discontinued -continue to monitor 10. Possible sleep apnea -patient noted to have drop in O2 sat in 80s during sleep at night, although o ther times during day when sleeping his O2 sats are not dropping -consider outpatient sleep study although this is somewhat less priority in light of his other diagnoses Dispo: home with home health, recommend outpatient follow up with PCP, cardiology, and oncology. Possibly urology as well. Exam Vital Signs (past 8 hours): - 07/11/20 04:22 07/11/20 08:00 Temperature 97.2 F L 98.0 F Pulse Rate 106 H 104 H Respiratory Rate 18 17 Blood Pressure 100/68 103/64 Pulse Oximetry 98 95 Oxygen Delivery Method Room Air Oxygen Flow Rate 0 Narrative Exam Narrative: GENERAL APPEARANCE: Chronically ill appearing, malnourished appearing elderly male, in no acute distress. SKIN: Inspection of the skin reveals no rashes, ulcerations or petechiae. HEENT: Normocephalic atraumatic, extraocular muscles are intact, oropharynx is clear and mucous membranes are moist, neck is supple without adenopathy NECK: Supple and symmetric. There was no thyroid enlargement, and no tenderness, or masses were felt. CHEST: Normal AP diameter and normal contour without any kyphoscoliosis. LUNGS: Auscultation of the lungs revealed diminished breath sounds bilaterally without wheezes, rhonchi, rales. CARDIOVASCULAR: Irregularly irregular rhythm with normal rate without any murmurs, gallops, rubs. Peripheral pulses were 2+ and symmetric. ABDOMEN: Soft and nontender with normal bowel sounds. No ascites was noted. MUSCULOSKELETAL: There was no tenderness or effusions noted. Muscle strength in upper extremities was unremarkable, lower extremities now symmetrically weak EXTREMITIES: No cyanosis, clubbing or edema. NEUROLOGIC: Alert and oriented x 3. Normal affect. Gait was not assessed. Probable mild cognitive impairment. Sensation to touch was normal. Bilateral lower extremity weakness slightly improved, now able to bend legs at hips without upper extremity assistance. Objective Labs Result Diagrams: 07/10/20 04:41 07/10/20 04:41 [facility] Medical History (Updated 07/06/20 @ 18:34 by Rajinder Rao DO) Alcoholism Atrial fibrillation CAD (coronary artery disease) Ischemic cardiomyopathy Persistent atrial fibrillation Prostate cancer Surgical History (Updated 07/06/20 @ 18:34 by Rajinder Rao DO) History of prostatectomy Family History (Updated 07/06/20 @ 18:33 by Rajinder Rao DO) Father CAD (coronary artery disease) Social History household members: family lives independently: Yes Smoking Status: Former smoker alcohol intake: former Discharge Plan Discharge Plan Patient Disposition: Home Health Service Provider Discharge Comment: You were admitted to the hospital with weakness. You were found to have a very high PSA level and bone abnormalities. This is likely due to prostate cancer. You were started on medications to try and help this and your atrial fibrillation medications also needed to be changed. given your anemia xarelto was also stopped and you were started on medications to actually increase your BP. I recommend you re-establish care with PCP within the next week as you will need to continue amiodarone at a lower dose after initial 3 week course and you should obtain an urgent referral to oncology and or urology. Discharge orders & Medications Prescriptions: New amiodarone 200 mg Tablet 400 mg PO BIDWM 21 Days Qty: 42 RF: 0 bicalutamide 50 mg Tablet 50 mg PO DAILY 30 Days Qty: 30 RF: 0 midodrine 5 mg Tablet 5 mg PO 0600,1200,1800 30 Days Qty: 90 RF: 0 Continued atorvastatin 40 MG tablet 40 mg PO HS Qty: 0 RF: 0 timolol maleate 0.5 % drops 1 drp OPHTH BID Qty: 0 RF: 0 latanoprost 0.005 % drops 1 drp ophthalmic (eye) DAILY RF: 0 Discontinued lisinopril 2.5 MG tablet 2.5 mg PO QDAY Qty: 90 RF: 0 Xarelto 20 mg tablet 20 mg DAILY RF: 0 metoprolol succinate 100 MG tablet extended release 24 hr 100 mg PO BID RF: 0 Diet/Activity/Treatments Diet: Diet as Tolerated Activity: As tolerated Visit Report/Discharge Packet Instructions: DI for Atrial Fibrillation, Amiodarone, Bicalutamide, Midodrine
--- NOTE | 2020-07-11 11:39 | OT.IP.TRT ---
Current Diagnoses Cerebral infarction, unspecified (07/07/20) Occupational Therapy Treatment Note M2 OT-IP Current Condition Start: 07/07/20 11:53 Freq: Status: Active Protocol: Document 07/07/20 10:55 CCC (Rec: 07/07/20 12:45 CCC [id number]) Occupational Therapy Current Condition Current Condition Evaluation Date 07/07/20 Treatment Diagnosis Subacute CVA remote left occipital lobe infartion, decreased STM and mobili Diagnosis Onset Date 07/06/20 M3 OT- IP Subjective and Pain Start: 07/07/20 11:53 Freq: Status: Active Protocol: Document 07/11/20 11:37 CGR (Rec: 07/11/20 11:39 CGR [id number]) OT- Subjective Occupational Therapy Visit Type Type Administrative Note Notes Discussed case with pt and pt' s brother. Pt is planned for d /c today and with poor endurance. Will hold today to maintain endurance for discharge home.
--- NOTE | 2020-07-11 11:54 | PT-IP ANOTE ---
pt refused PT. stated that he does not want to get too tired before he goes home. brother in room with pt and stated that they know what to do. pt's brother did not bring FWW with him and stated that he is going to buy one at [facility] on their way home.
[2020-07-11 12:00] VITALS: BP 91/60; PULSE 98; RESP 17; TEMP 36.4; O2SAT 99
--- NOTE | 2020-07-11 12:41 | CM.DPNOTE ---
DC Note Met w/patient and his brother this morning to review DCP; patient eager to return home, agreeable to HH. Dr Rao completing DC order and therapy has cleared patient for return home- this is he and family's wish. Roommates are available at home to assist patient w/care needs. Patient/brother appreciate HH referral thru state [place] RN/PT/OT/WELLNESS SPA MANAGER will work well. PCP is currently employee health rn Dr Yoo. Patient plans to f/u w/[facility], [facility] Placed referral to Yadira Maurer, requested [facility] RN/PT/OT/WELLNESS SPA MANAGER, f/u expected w/in 48 hrs, faxed clinical packet to include signed F2F and HH order. Plan: DC home today w/family and friends to assist via family transport, may [facility] RN/PT/OT/WELLNESS SPA MANAGER and close outpatient f/u JW
[2020-07-13 15:18] LABS: Free Kappa Lt Chains, Serum 23.9
[2020-07-13 15:19] LABS: Free Lambda Lt Chains,Serum 20.4
--- NOTE | 2020-08-04 11:03 | ONC.MSW ---
Description: New Referral Navigation T/C Reason for Referral: Prostate Cancer w/Bone Mets Activity: Called pt/family to confirm that we've received his referral, assessed medical status, hx, and immediate needs. Pt was initially diagnosed with prostate cancer approximately 13-years ago, was treated by Dr. Dan here at . He was recently hospitalized for poor geriatric status, weakness, poor appetite, weight loss, severe anemia, high PSA, and hematuria. His hypokalemia, and hematuria were resolved during hospitalization, anemia somewhat stabilized. Bone mets were identified during inpt imaging. Pt also endorses having memory impairment, and lives with his brother and friend in order to receive the care and healthcare coordination that he needs. Pt is also a Islam, and refuses all blood products/infusions. He's being referred for to Oncology for palliative focused treatment recommendations. [employer] discussed the role of navigation, and the ongoing availability of assistance, support, and resource referrals as needed. No immediate needs are identified at this time. Confirmed the initial consult time for 08/10 at 3:20pm, 3:00 check-in time.
== END 2020-07-11 12:30 | disposition home or self-care (01) | DRG 722 ==
LOC: ED 16:46 → AC 16:51 → ICU 07-07 20:01
PROVIDERS: Internal Medicine; Nurse Practitioner Family; Admitting Provider Internal Medicine; Emergency Provider Emergency Medicine; Referring Provider Emergency Medicine; Visit Provider Internal Medicine
DX: C61 Malignant neoplasm of prostate (principal); E43 Unspecified severe protein-calorie malnutrition; I48.19 Other persistent atrial fibrillation; Z68.1 Body mass index [BMI] 19.9 or less, adult; N13.2 Hydronephrosis with renal and ureteral calculous obstruction; J90 Pleural effusion, not elsewhere classified; C79.51 Secondary malignant neoplasm of bone; R53.1 Weakness; Z79.01 Long term (current) use of anticoagulants; I25.5 Ischemic cardiomyopathy; E87.6 Hypokalemia; D63.0 Anemia in neoplastic disease; I95.9 Hypotension, unspecified; R31.0 Gross hematuria; I25.10 Atherosclerotic heart disease of native coronary artery without angina pectoris; E78.5 Hyperlipidemia, unspecified; E11.9 Type 2 diabetes mellitus without complications; G47.30 Sleep apnea, unspecified
CPT/HCPCS: 36415; 70450; 70548; 70553; 71045; 71260; 74177; 80048; 80053; 80061; 80076; 80320; 80329; 81001; 82140; 82533; 82550; 82607; 82746; 82784; 82962; 83036; 83540; 83550; 83690; 83735; 83880; 83883; 84145; 84153; 84155; 84443; 84484; 85007; 85025; 85045; 85610; 85730; 86334; 87086; 87635; 87797; 93005; 93010; 93306; 97116; 97161; 97166; 97530; 97535; 99284; 99285; C9803; G0378; G0480; J0282; J1940; J3480; Q9967

== ENCOUNTER 2020-07-13 12:50 | Emergency (ER) | payer MEDICARE, OTHER, SELFPAY ==
[2020-07-07 01:29] VITALS: BMI 18.8
[2020-07-13 12:50] VITALS: BP 111/77; PULSE 78; RESP 14; O2SAT 94
[2020-07-13 13:03] VITALS: PULSE 93; RESP 16; O2SAT 91
[2020-07-13 13:21] LABS: Add Manual Diff / Slide Review YES; Hematocrit 24.2 % (41-53); Hemoglobin 7.9 g/dL (13.5-17.5); Mean Corpuscular HGB Conc 32.7 % (30-36); Mean Corpuscular Hemoglobin 28.4 PG (26-34); Mean Corpuscular Volume 87.1 fL (80-100); Platelet Count 171 X10^3/uL (150-400); Red Blood Cell Count 2.77 X10^6/uL (4.5-5.9); Red Cell Distribution Width 21.1 % (11.6-14.8)
[2020-07-13 13:29] LABS: INR 1.4 (0.9-1.3); Prothrombin Time 16.4 SECONDS (10.1-12.7)
[2020-07-13 13:30] VITALS: BP 98/65; PULSE 78; RESP 14; O2SAT 94
[2020-07-13 13:35] LABS: BUN Creatinine Ratio 21.7 (6-22); Blood Urea Nitrogen 13 mg/dL (9-20); Calcium 7.3 mg/dL (8.4-10.2); Carbon Dioxide 30 mmol/L (22-32); Chloride 102 mmol/L (98-107); Estimated Glomerular Filt Rate > 60.0 mL/min (>60); Glucose 130 mg/dL (80-110); HEMOLYSIS < 15 (0-50); Potassium 3.6 mmol/L (3.4-5.1); Sodium 135 mmol/L (137-145)
--- NOTE | 2020-07-13 13:39 | ED.MALEGU ---
HPI - Male Genitourinary General Chief complaint: Urogenital-Male Stated complaint: Hematuria Time Seen by Provider: 07/13/20 13:00 Source: patient and EMS Mode of arrival: EMS Limitations: no limitations History of Present Illness HPI Narrative: 75-year-old male former smoker with history of prostate cancer presents at the request of his family by EMS for evaluation of gross hematuria earlier today. He denies any pain, dizziness, weakness or lightheadedness. He has had no fever chills. He denies chest pain or shortness of breath. He is otherwise well and free of complaint MD Complaint: other Onset (ago): hour(s) Duration: constant Location: penis Relieving factors: none Exacerbating factors: none Associated symptoms: Reports denies other symptoms Related Data Home Medications Medication Instructions Recorded Confirmed atorvastatin 40 mg PO HS #0 08/18/16 07/06/20 timolol maleate 1 drp OPHTH BID #0 12/08/16 07/06/20 latanoprost 1 drp OPHTHALMIC (EYE) DAILY 07/06/20 07/06/20 Previous Rx's Medication Instructions Recorded amiodarone 400 mg PO BIDWM 21 Days #42 tab 07/11/20 bicalutamide 50 mg PO DAILY 30 Days #30 tab 07/11/20 midodrine 5 mg PO 0600,1200,1800 30 Days #90 07/11/20 tab Allergies Allergy/AdvReac Type Severity Reaction Status Date / Time No Known Drug Allergies Allergy Verified 07/06/20 16:10 Review of Systems Constitutional Constitutional: Denies chills, Denies fatigue, Denies fever(s), Denies frequent falls, Denies lethargy and Denies weakness Eyes Eyes: Denies change in vision, Denies eye discharge, Denies irritation and Denies loss of vision ENT Ears, Nose, Mouth, and Throat: Denies change in voice, Denies dizziness, Denies neck pain, Denies sore throat and Denies throat swelling Cardiovascular Cardiovascular: Denies chest pain, Denies irregular heart rhythm, Denies lightheadedness, Denies palpitations, Denies dyspnea, Denies dyspnea on exertion and Denies orthopnea Respiratory Respiratory: Denies cough, Denies dyspnea, Denies dyspnea on exertion and Denies wheezing Gastrointestinal Gastrointestinal: Denies abdominal pain, Denies change in bowel habits, Denies diarrhea, Denies nausea and Denies vomiting Genitourinary Genitourinary: Reports hematuria Genitourinary: Reports hematuria Musculoskeletal Musculoskeletal: Denies neck pain and Denies numbness Integumentary/Breasts Skin/Breast: Denies pruritus, Denies erythema, Denies rash and Denies wounds Neurologic Neurologic: Denies behavioral changes, Denies confusion, Denies dizziness, Denies frequent falls, Denies loss of vision, Denies numbness and Denies weakness Psychiatric Psychiatric: Denies anxiety, Denies behavioral changes, Denies confusion, Denies depression, Denies homicidal ideation and Denies suicidal ideation Endocrine Endocrine: Denies fatigue, Denies flushing and Denies palpitations Hematologic/Lymphatic Hematologic/Lymphatic: Denies easy bruising Allergic/Immunologic Allergic/Immunologic: Denies urticaria, Denies throat swelling and Denies wheezing Patient History Medical History Alcoholism Atrial fibrillation CAD (coronary artery disease) Ischemic cardiomyopathy Persistent atrial fibrillation Prostate cancer Surgical History History of prostatectomy Family History Father CAD (coronary artery disease) Social History household members: family lives independently: Yes Smoking Status: Former smoker alcohol intake: former Smoking Status: Former smoker alcohol intake frequency: 0-2 drinks per day Substance Use Type: marijuana Exam Narrative Exam Narrative: GENERAL: [75] year old patient appears stated age. Frail and thin, chronically ill. HEAD: Atraumatic. Normocephalic. EYES: Pupils equal round and reactive. Extraocular motions intact. No scleral icterus. No injection or drainage. ENT: Nose without bleeding, purulent drainage. Throat without erythema, tonsillar hypertrophy or exudate. Airway patent. NECK: Trachea midline. Non tender CARDIOVASCULAR: Regular rate and rhythm without murmurs, gallops, or rubs. RESPIRATORY: Clear to auscultation. Breath sounds equal bilaterally. No wheezes, rales, or rhonchi. GASTROINTESTINAL: Abdomen soft, non-tender, nondistended. EXTREMITIES: No edema or joint tenderness. BACK: Nontender without deformity or crepitance. No flank tenderness. NEURO: AOx3. SKIN: No rash or erythema of visible areas Initial Vital Signs Initial Vital Signs: Vital Signs Pulse Rate 78 07/13/20 12:50 Respiratory Rate 14 07/13/20 12:50 Blood Pressure 111/77 07/13/20 12:50 Pulse Oximetry 94 07/13/20 12:50 Course Course Course Narrative: mild hematuria on urine. Irrigated to clear. No clots or ongoing bleeding. Labs at baseline. Patient feeling quite well denies dizziness, weakness or lightheadedness. Return precautions given, questions answered to his apparent satisfaction Orders Ordered: ED Orders 07/13/20 13:09 Basic Metabolic Panel Stat Complete Blood Count AUTO DIFF Stat Prothrombin Time INR Stat Type and Screen Stat 07/13/20 14:19 Urinalysis and Microscopic Stat Discontinued Medications Lidocaine HCl (Lidocaine 2% (Urojet) 5 Ml Gel) 5 ml TOP NOW ONE Stop: 07/13/20 13:03 Vital Signs Vital signs: Vital Signs - 8 hr 07/13/20 12:50 07/13/20 13:03 07/13/20 13:30 Pulse Rate 78 93 H 78 Respiratory Rate 14 16 14 Blood Pressure 111/77 98/65 Pulse Oximetry 94 91 94 07/13/20 14:20 07/13/20 14:30 Pulse Rate 90 83 Respiratory Rate 20 20 Blood Pressure 107/67 Pulse Oximetry 96 96 MDM - Male Genitourinary Lab Data Result diagrams: 07/13/20 13:09 07/13/20 13:09 Labs: Lab Results 07/13/20 07/13/20 07/13/20 Range/Units 13:09 13:09 13:09 WBC 6.0 (4.5-11.0) X10^3/uL RBC 2.77 L (4.5-5.9) X10^6/uL Hgb 7.9 L (13.5-17.5) g/dL Hct 24.2 L (41-53) % MCV 87.1 (80-100) fL MCH 28.4 (26-34) PG MCHC 32.7 (30-36) % RDW 21.1 H (11.6-14.8) % Plt Count 171 (150-400) X10^3/uL Neut % (Auto) Not Reportable Lymph % (Auto) Not Reportable [place] % (Auto) Not Reportable Eos % (Auto) Not Reportable Baso % (Auto) Not Reportable Lymph # (Auto) Not Reportable [place] # (Auto) Not Reportable Baso # (Auto) Not Reportable Total Counted 100 Seg Neutrophils % 61.0 (38-70) % Band Neutrophils % 4.0 (3-7) % Lymphocytes % (Manual) 25.0 (25-45) % Atypical Lymphs % 2.0 H ( - 0) % Monocytes % (Manual) 6.0 (2-11) % Eosinophils % (Manual) 2.0 (2-4) % Neutrophils # (Manual) 3900 (5665-6214) /uL Nucleated RBCs 1 H ( - 0) #/Diff RBC Morphology See below Hypochromasia 1+ H Poikilocytosis 1+ H Anisocytosis 2+ H Rouleaux 1+ H PT 16.4 H D (10.1-12.7) SECONDS INR 1.4 H (0.9-1.3) Sodium 135 L (137-145) mmol/L Potassium 3.6 (3.4-5.1) mmol/L Chloride 102 (98-107) mmol/L Carbon Dioxide 30 (22-32) mmol/L BUN 13 (9-20) mg/dL Creatinine 0.60 L (0.66-1.25) mg/dL Estimated GFR > 60.0 (>60) mL/min BUN/Creatinine Ratio 21.7 (6-22) Glucose 130 H (80-110) mg/dL Calcium 7.3 L (8.4-10.2) mg/dL Urine Color Urine Appearance Urine pH (4.5-8.0) Ur Specific [place] (1.000-1.035) Urine Protein (Negative) Urine Glucose (UA) (Negative) g/dL Urine Ketones (NEGATIVE) Urine Occult Blood (Negative) Urine Nitrate (Negative) Urine Bilirubin (NEGATIVE) Urine Urobilinogen (0.2) E.U./dL Ur Leukocyte Esterase (NEGATIVE) Urine RBC (0-5/HPF) Urine WBC (0-5/HPF) Amorphous Sediment Urine Bacteria (None) Ur Culture Indicated? Blood Type Antibody Screen 07/13/20 07/13/20 Range/Units 13:09 14:19 WBC (4.5-11.0) X10^3/uL RBC (4.5-5.9) X10^6/uL Hgb (13.5-17.5) g/dL Hct (41-53) % MCV (80-100) fL MCH (26-34) PG MCHC (30-36) % RDW (11.6-14.8) % Plt Count (150-400) X10^3/uL Neut % (Auto) Lymph % (Auto) [place] % (Auto) Eos % (Auto) Baso % (Auto) Lymph # (Auto) [place] # (Auto) Baso # (Auto) Total Counted Seg Neutrophils % (38-70) % Band Neutrophils % (3-7) % Lymphocytes % (Manual) (25-45) % Atypical Lymphs % ( - 0) % Monocytes % (Manual) (2-11) % Eosinophils % (Manual) (2-4) % Neutrophils # (Manual) (8376-2348) /uL Nucleated RBCs ( - 0) #/Diff RBC Morphology Hypochromasia Poikilocytosis Anisocytosis Rouleaux PT (10.1-12.7) SECONDS INR (0.9-1.3) Sodium (137-145) mmol/L Potassium (3.4-5.1) mmol/L Chloride (98-107) mmol/L Carbon Dioxide (22-32) mmol/L BUN (9-20) mg/dL Creatinine (0.66-1.25) mg/dL Estimated GFR (>60) mL/min BUN/Creatinine Ratio (6-22) Glucose (80-110) mg/dL Calcium (8.4-10.2) mg/dL Urine Color Yellow Urine Appearance Clear Urine pH 6.5 (4.5-8.0) Ur Specific [place] 1.015 (1.000-1.035) Urine Protein Trace H (Negative) Urine Glucose (UA) Trace H (Negative) g/dL Urine Ketones Negative (NEGATIVE) Urine Occult Blood 3+ H (Negative) Urine Nitrate Negative (Negative) Urine Bilirubin Negative (NEGATIVE) Urine Urobilinogen 1.0 (0.2) E.U./dL Ur Leukocyte Esterase Negative (NEGATIVE) Urine RBC 10-30/hpf H (0-5/HPF) Urine WBC None seen (0-5/HPF) Amorphous Sediment 2+ Urine Bacteria None seen (None) Ur Culture Indicated? Cult not indicated Blood Type A Positive Antibody Screen Negative Urine Dip Bedside Urine Glucose Negative Bedside Urine Bilirubin - Negative Bedside Urine Ketone - Negative Urine Specific [place] 1.020 Bedside Urine Occult Blood +++ Bedside Urine pH 6.0 Bedside Urine Protein + 30 Bedside Urine Urobilinogen +/- 1mg Bedside Urine Nitrite - Negative Bedside Urine Leukocytes - Negative Esterase Discharge Plan Departure Patient Disposition: Home Clinical Impression: Hematuria Qualifiers: Hematuria type: unspecified type Qualified Code(s): R31.9 - Hematuria, unspecified Instructions: DI for Hematuria Activity Restrictions/Additional Instructions: *You have been diagnosed with [dysuria, resolved. Emergency department] *What to do: *Take medications as directed *Follow up with your urologist in 2-3 days, call for an appointment. Let them know you were seen in the Emergency Department and that we ask that you be seen in follow up *Return to ER if you should have any new, worsening or concerning symptoms, such as [dizziness, light headedness, weakness, shortness of breath, chest pain, fever over 101, shaking chills or other bothersome symptoms] Prescriptions: No Action atorvastatin 40 MG tablet 40 mg PO HS Qty: 0 RF: 0 timolol maleate 0.5 % drops 1 drp OPHTH BID Qty: 0 RF: 0 latanoprost 0.005 % drops 1 drp ophthalmic (eye) DAILY RF: 0 amiodarone 200 mg Tablet 400 mg PO BIDWM 21 Days Qty: 42 RF: 0 bicalutamide 50 mg Tablet 50 mg PO DAILY 30 Days Qty: 30 RF: 0 midodrine 5 mg Tablet 5 mg PO 0600,1200,1800 30 Days Qty: 90 RF: 0
[2020-07-13 14:20] VITALS: PULSE 90; RESP 20; O2SAT 96
[2020-07-13 14:26] LABS: Neutrophils Absolute Manual 3900 /uL (3000-5900); Nucleated Red Blood Cells 1 #/Diff; Total Cells Counted 100
[2020-07-13 14:28] LABS: Anisocytosis 2+; Hypochromasia 1+; Poikilocytosis 1+
[2020-07-13 14:29] LABS: Rouleaux 1+
[2020-07-13 14:30] VITALS: BP 107/67; PULSE 83; RESP 20; O2SAT 96
[2020-07-13 14:51] LABS: Appearance Urine UA CLEAR; Bacteria Urine None Seen; Bilirubin Urine UA NEGATIVE (NEGATIVE); Color Urine UA YELLOW; Glucose Urine UA TRACE g/dL (Negative); Ketones Urine UA NEGATIVE (NEGATIVE); Leukocyte Esterase Urine UA NEGATIVE (NEGATIVE); Nitrite Urine UA NEGATIVE (Negative); Occult Blood Urine UA 3+ (Negative); Protein Urine UA TRACE (Negative); Specific Gravity Urine UA 1.015 (1.000-1.035); WBC Urine None Seen (0-5/HPF); pH Urine UA 6.5 (4.5-8.0)
[2020-07-13 15:19] LABS: Amorphous Sediment Urine 2+; Culture Indicated Urine Cult Not Indicated; RBC Urine 10-30/HPF (0-5/HPF)
--- NOTE | 2020-07-14 19:12 | PC.NURSE ---
Evening shift note: 07/08/20 Verbal order given by provider Renaldo CALIX to place christianson catheter due to Lasix administration during dayshift, during placement of christianson patient stated that the catheter was hurting, this nurse removed the catheter and notified the provider that the patient no longer wanted the catheter. Provider authorized to leave christianson catheter out. Patient updated and happy to leave out, no further needs at this time
== END 2020-07-13 16:09 | disposition home or self-care (01) ==
PROVIDERS: Emergency Provider Emergency Medicine
DX: R31.9 Hematuria, unspecified (principal); I48.91 Unspecified atrial fibrillation; I25.10 Atherosclerotic heart disease of native coronary artery without angina pectoris
CPT/HCPCS: 36415; 51701; 51798; 80048; 81001; 81003; 85007; 85025; 85610; 86850; 86900; 86901; 99283